=== PATIENT | female | born 1945 | race Caucasian/White ===

== ENCOUNTER 2018-09-22 04:47 | Observation (INO) | payer MEDICARE ==
[2018-09-22] MEDS ORDERED: DILTIAZEM HCL INJ 25 MG/5 ML VIAL IV ONE (05:17)
[2018-09-22] MEDS ORDERED: DILTIAZEM HCL/D5W 125 MG/125 ML RTUINJ IV PRN (05:18)
--- NOTE | 2018-09-22 05:21 | ER Document Report ---
Doctor's Note Notes: 09/22/18 05:19 I performed a quick triage evaluation the patient. Patient is a pleasant 73- year-old female who presents because she woke up having palpitations. She said she also had headache when she first woak up. Her headache is now almost completely resolved. No chest pain. No shortness of breath. No numbness or weakness into her extremities. No back pain. No abdominal pain. Patient denies any history of previous cardiac arrhythmias. No history of heart disease. She does have a history of hypertension. She said her doctor recently placed on hydrochlorothiazide. No other new medications or medication changes. Patient currently is resting comfortably with no distress. No murmur on auscultation. Lung pollack are clear. Cranial nerves are intact. I have ordered Cardizem and Cardizem drip. EKG shows a tachycardia arrhythmia which is suspect is going to be atrial fibrillation. QRS is narrow. I do not see any significant ischemic changes except for some T wave inversions in the lateral leads which could be rate related. Patient is on a monitor. Blood work has been ordered. Disposition further management will be continued by the morning ED physician. Dictation of this chart was performed using voice recognition software; therefore, there may be some unintended grammatical errors.
[2018-09-22 05:40] LABS: ABSOLUTE BASOPHILS # (AUTO) 0.1 10^3/uL (0.0-0.2); ABSOLUTE EOSINOPHILS # (AUTO) 0.2 10^3/uL (0.0-0.6); ABSOLUTE LYMPHOCYTES (AUTO) 1.5 10^3/uL (0.5-4.7); ABSOLUTE MONOCYTES (AUTO) 0.9 10^3/uL (0.1-1.4); ABSOLUTE NEUT (AUTO) 9.6 10^3/uL (1.7-8.2); BASOPHILS % (AUTO) 0.8 % (0-2); EOSINOPHILS % (AUTO) 1.4 % (0-6); HEMATOCRIT 44.8 % (36.0-47.0); HEMOGLOBIN 15.5 g/dL (12.0-15.5); LYMPHOCYTES % (AUTO) 12.5 % (13-45); MEAN CORPUSCULAR HEMOGLOBIN 28.9 pg (27.0-33.4); MEAN CORPUSCULAR HGB CONC 34.7 g/dL (32.0-36.0); MEAN CORPUSCULAR VOLUME 83 fl (80-97); MONOCYTES % (AUTO) 7.1 % (3-13); PLATELET COUNT 241 10^3/uL (150-450); RED BLOOD COUNT 5.37 10^6/uL (3.72-5.28); RED CELL DISTRIBUTION WIDTH 16.1 % (11.5-14.0); SEGMENTED NEUTROPHILS % (AUTO) 78.2 % (42-78); TOTAL CELLS COUNTED % (AUTO) 100 %; WHITE BLOOD COUNT 12.3 10^3/uL (4.0-10.5)
[2018-09-22] MEDS ORDERED: METOPROLOL TARTRATE PF/INJ 5 MG/5 ML SDV IV ONE ×3 (06:16→06:17)
--- NOTE | 2018-09-22 06:23 | RADIOLOGY REPORT (SQ) ---
EXAM DESCRIPTION: XR CHEST 1 VIEW COMPLETED DATE/TME: 09/22/2018 05:18 CLINICAL HISTORY: 73 years, Female, rapid heart beat COMPARISON: None. NUMBER OF VIEWS: 1 TECHNIQUE: AP portable chest LIMITATIONS: None. FINDINGS: Heart size is normal. Osteopenia. Lungs are clear. No pneumothorax IMPRESSION: No acute cardiopulmonary process copyright 2010 [employer]- All Rights Reserved
--- NOTE | 2018-09-22 06:24 | ER Document Report ---
ED General - General Chief Complaint: Palpitations Stated Complaint: FAST HEART RATE Time Seen by Provider: 09/22/18 05:17 Information source: Patient Notes: 73-year-old female with a history of hypertension presents emergency department complaints of palpitations that started at 230 this morning. Patient states that she monitored her pulse over a few hours and noticed it to be elevated. Patient denies any history of cardiac arrhythmias, coronary artery disease, hyperlipidemia, diabetes, smoking. Patient states that she was recently placed on hydrochlorothiazide. Patient states that initially she has an associated pressure sensation all along her chest with radiation into the left side of her neck. She states that this has resolved since coming to the emergency department. Patient was seen by Dr. Roland. Labs, imaging, medications were ordered. Cardizem and a Cardizem drip were ordered. A 15 mg bolus of Cardizem was given. Patient is currently on 15 mg/hr. Patient's heart rate continues to be in the 160s. - HPI Onset: Just prior to arrival Severity: None Pain Level: Denies Associated symptoms: None Exacerbated by: Denies Relieved by: Denies Similar symptoms previously: No Recently seen / treated by doctor: No - Related Data Allergies/Adverse Reactions: codeine Adverse Reaction (Mild, Verified 09/22/18 05:42) GI upset Past Medical History - General Information source: Patient - Social History Smoking Status: Never Smoker Family History: CAD Patient has suicidal ideation: No Patient has homicidal ideation: No - Past Medical History Cardiac Medical History: Reports: Hx Hypertension Renal/ Medical History: Denies: Hx Peritoneal Dialysis Review of Systems - Review of Systems Constitutional: No symptoms reported EENT: No symptoms reported Cardiovascular: Palpitations Respiratory: No symptoms reported Gastrointestinal: No symptoms reported Genitourinary: No symptoms reported Female Genitourinary: No symptoms reported Musculoskeletal: No symptoms reported Skin: No symptoms reported Hematologic/Lymphatic: No symptoms reported Neurological/Psychological: No symptoms reported -: Yes All other systems reviewed and negative Physical Exam - Vital signs Vitals: Pulse Ox 94 09/22/18 05:16 - Notes Notes: PHYSICAL EXAMINATION: GENERAL: Well-appearing, well-nourished and in no acute distress. HEAD: Atraumatic, normocephalic. EYES: Pupils equal round and reactive to light, extraocular movements intact, conjunctiva are normal. ENT: Nares patent, oropharynx clear without exudates. Moist mucous membranes. NECK: Normal range of motion, supple without lymphadenopathy LUNGS: Breath sounds clear to auscultation bilaterally and equal. No wheezes rales or rhonchi. HEART: Atrial fibrillation. Irregularly irregular pulse. ABDOMEN: Soft, nontender, nondistended abdomen. No guarding, no rebound. No masses appreciated. Female : deferred Musculoskeletal: Normal range of motion, no pitting or edema. No cyanosis. NEUROLOGICAL: Cranial nerves grossly intact. Normal speech, normal gait. Normal sensory, motor exams PSYCH: Normal mood, normal affect. SKIN: Warm, Dry, normal turgor, no rashes or lesions noted. Course - Re-evaluation Re-evalutation: 09/22/18 06:25 EKG: Ventricular rate 171, QRS duration 72, QTc 476, SVT. 09/22/18 07:14 Repeat EKG done at 7: 03: Ventricular rate 87, QRS duration 74, QTc 429, atrial fibrillation. 09/22/18 07:23 Patient's heart rates continue to be in the 160s when I arrived on shift. I ordered a 5 mg bolus of labetalol. This was given in the patient's heart rate is now 65. Patient still in atrial fibrillation. Patient's troponin is elevated. EKG was repeated. No ST segment elevation was seen. I spoke with the physician interventional cardiologist on-call, Dr. Chandler. He would like the patient's Cardizem drip to be cut down to 10 mg an hour. He will see the patient in consult. 09/22/18 07:40 I spoke with the hospitalist consultant teacher. He will admit the patient. The patient is agreeable with admission. - Vital Signs Vital signs: Temp Pulse Resp BP Pulse Ox 15 122/57 L 95 09/22/18 06:46 09/22/18 06:46 09/22/18 06:46 - Laboratory Result Diagrams: 09/22/18 05:23 09/22/18 06:05 Laboratory results interpreted by me: 09/22/18 09/22/18 05:23 06:05 WBC 12.3 H RBC 5.37 H RDW 16.1 H Seg Neutrophils % 78.2 H Lymphocytes % 12.5 L Absolute Neutrophils 9.6 H BUN 33 H Calcium 10.8 H Magnesium 1.5 L Discharge - Discharge Clinical Impression: Atrial fibrillation Qualifiers: Atrial fibrillation type: unspecified Qualified Code(s): I48.91 - Unspecified atrial fibrillation Condition: Stable Disposition: ADMITTED OBSERVATION Admitting Provider: Hospitalist Unit Admitted: [facility] Referrals: ZORA SÁNCHEZ PA-C [Primary Care Provider] - Follow up as needed
[2018-09-22 06:35] LABS: ALANINE AMINOTRANSFERASE 23 U/L (9-52); ALBUMIN 4.2 g/dL (3.5-5.0); ALKALINE PHOSPHATASE 73 U/L (38-126); ANION GAP 17 (5-19); ASPARTATE AMINO TRANSFERASE 36 U/L (14-36); BILIRUBIN,DIRECT 0.3 mg/dL (0.0-0.4); BILIRUBIN,TOTAL 0.5 mg/dL (0.2-1.3); BLOOD UREA NITROGEN 33 mg/dL (7-20); CALCIUM 10.8 mg/dL (8.4-10.2); CARBON DIOXIDE 24 mmol/L (22-30); CHLORIDE 99 mmol/L (98-107); GLUCOSE 106 mg/dL (75-110); POTASSIUM 3.9 mmol/L (3.6-5.0); SODIUM 140.3 mmol/L (137-145); TOTAL PROTEIN 6.7 g/dL (6.3-8.2)
--- NOTE | 2018-09-22 07:40 | EKG REPORT ---
SEVERITY:- ABNORMAL ECG - ATRIAL FIBRILLATION, V-RATE 61-124 ABNORMAL T, CONSIDER ISCHEMIA, INFERIOR LEADS : Confirmed by: Ezequiel Acevedo MD 22-Sep-2018 07:39:52
--- NOTE | 2018-09-22 07:40 | EKG REPORT ---
SEVERITY:- ABNORMAL ECG - SUPRAVENTRICULAR TACHYCARDIA LVH WITH SECONDARY REPOLARIZATION ABNORMALITY ST DEPRESSION, PROBABLY RATE RELATED : Confirmed by: Ezequiel Acevedo MD 22-Sep-2018 07:40:13
[2018-09-22] MEDS ORDERED: ASPIRIN 325 MG TABLET PO ONE (07:42)
[2018-09-22] MEDS ORDERED: MAGNESIUM HYDROXIDE SUSP 30 ML UDCUP PO PRN (08:39)
[2018-09-22] MEDS ORDERED: MAG HYDROX/AL HYDROX/SIMETH SUSP 30 ML UDCUP PO PRN (08:39)
[2018-09-22] MEDS ORDERED: ONDANSETRON 4 MG TAB.RAPDIS PO PRN (08:39)
[2018-09-22] MEDS ORDERED: TEMAZEPAM 7.5 MG CAPSULE PO PRN (08:39)
[2018-09-22] MEDS ORDERED: ONDANSETRON HCL INJ/PF 4 MG/2 ML SDV IV PRN (08:39)
[2018-09-22] MEDS ORDERED: METOPROLOL TARTRATE 50 MG TABLET PO ONE ×2 (08:54→11:00)
[2018-09-22] MEDS ORDERED: (PENDING PHARMACY ID) (Hydrochlorothiazide [Hydrochlorothiazide] 12.5 MG) PO SCH (10:00)
[2018-09-22] MEDS: DOCUSATE SODIUM 100 MG CAPSULE PO SCH ×2 (10:09→17:34)
[2018-09-22] MEDS: HYDROCHLOROTHIAZIDE 12.5 MG TABLET PO SCH (10:10)
[2018-09-22] MEDS: FAMOTIDINE 20 MG TABLET PO SCH ×2 (10:12→21:55)
[2018-09-22 10:44] LABS: CREATINE KINASE MB 12.4 ng/mL (<4.55)
[2018-09-22 10:51] LABS: TROPONIN I 0.817 ng/mL
[2018-09-22] MEDS: HEPARIN SOD (PORCINE) 5,000 UNIT/ML 1 ML SYRINGE SUBCUT SCH ×2 (14:13→21:55)
[2018-09-22] MEDS ORDERED: MAGNESIUM SULFATE/D5W 1 GM/100 ML RTUPB IV ONE (18:18)
[2018-09-22 18:28] LABS: CREATINE KINASE MB 13.9 ng/mL (<4.55)
[2018-09-22 18:37] LABS: TROPONIN I 1.15 ng/mL
--- NOTE | 2018-09-22 18:55 | PDOC H&P ---
History of Present Illness Admission Date/PCP: 09/22/18 08:24 ZORA SÁNCHEZ PA-C Patient complains of: Palpitations History of Present Illness: MADIE ROLLINS is a 73 year old female who presented to the emergency room with a sudden onset of palpitations beginning at 2:20 AM having awoken her from a sound sleep. Her palpitations were of an extremely rapid heart rate accompanied by mild dyspnea, mild chest pressure/tightness radiating to her left neck, and a feeling of being generalized weakness or heaviness. She checked her heart rate and it was 179 with a blood pressure of 120/78. She waited at home hoping that it would resolve but eventually she came to the emergency room for help. In the emergency room she was found to have supraventricular tachycardia at a rate of 180, she was started on a Cardizem drip after a Cardizem bolus was given. The Cardizem therapy did not result in a significant reduction in the patient's heart rate and therefore she was given metoprolol IV with a total of two 5 mg doses given about 5 minutes apart. The patient's heart rate rapidly responded to metoprolol and her EKG showed an atrial fibrillation with a well-controlled rate. Patient was noted to have a elevated troponin I of 0.199 and was therefore admitted to observation status for further evaluation and continued treatment of her atrial fibrillation. After discussion with the patient concerning the risks and benefits of various treatments regarding her atrial fibrillation and antiembolic therapy she does not wish to be on chronic anticoagulation therapy other than a single low dose aspirin daily. Past Medical History Cardiac Medical History: Reports: Hypertension Denies: Atrial Fibrillation, Congestive Heart Failure, Coronary Artery Disease, DVT, Myocardial Infarction, Hyperlipidema, Pulmonary Embolism Pulmonary Medical History: Denies: Asthma, Chronic Obstructive Pulmonary Disease (COPD) EENT Medical History: Reports: None Neurological Medical History: Denies: Hemorrhagic CVA, Ischemic CVA, Multiple Sclerosis, Seizures Endocrine Medical History: Denies: Diabetes Mellitus Type 1, Diabetes Mellitus Type 2, Hyperthyroidism, Hypothyroidism Renal/ Medical History: Denies: Chronic Kidney Disease, Nephrolithiasis Malignancy Medical History: Reports: None GI Medical History: Denies: Cirrhosis, Crohn's Disease, Hepatitis, Peptic Ulcer Disease, Ulcerative Colitis Musculoskeltal Medical History: Denies: Arthritis, Fibromyalgia, Gout Skin Medical History: Denies: Eczema, Psoriasis Psychiatric Medical History: Denies: Alcohol Dependency, Depression, General Anxiety Disorder, Substance Abuse, Tobacco Dependency Traumatic Medical History: Reports: None Hematology: Denies: Anemia, Bleeding Tendencies Infectious Medical History: Reports: None Past Surgical History Past Surgical History: Reports: None Social History Information Source: Patient Lives with: Alone Smoking Status: Former Smoker Frequency of Alcohol Use: None Drugs: None Hx Prescription Drug Abuse: No - Advance Directive Resuscitation Status: Full Code Surrogate healthcare decision maker:: Michela Wing: Significant other Family History Family History: CAD, Hypertension. denies: DM, Malignancy, Thyroid Disfunction Parental Family History Reviewed: Yes Children Family History Reviewed: No Sibling(s) Family History Reviewed.: Yes Medication/Allergy Home Medications: Hydrochlorothiazide [Hydrochlorothiazide] 12.5 mg PO DAILY 09/22/18 Allergies/Adverse Reactions: codeine Adverse Reaction (Mild, Verified 09/22/18 05:42) GI upset Review of Systems Constitutional: ABSENT: chills, fever(s) Eyes: ABSENT: visual disturbances, other - Ocular pain Ears: ABSENT: hearing changes, other - Ear pain Nose, Mouth, and Throat: ABSENT: mouth pain, sore throat Cardiovascular: PRESENT: as per HPI, chest pain, palpitations. ABSENT: dyspnea on exertion, edema, orthropnea Respiratory: PRESENT: as per HPI, dyspnea. ABSENT: cough, hemoptysis Gastrointestinal: ABSENT: abdominal pain, constipation, diarrhea, dysphagia, heartburn, nausea, vomiting Genitourinary: ABSENT: dysuria, hematuria Musculoskeletal: ABSENT: back pain, joint swelling Integumentary: ABSENT: pruritus, rash Neurological: ABSENT: confusion, convulsions, memory loss, tremor(s), vertigo Psychiatric: ABSENT: anxiety, depression Endocrine: ABSENT: cold intolerance, heat intolerance Hematologic/Lymphatic: ABSENT: easy bleeding, easy bruising Allergic/Immunologic: ABSENT: seasonal rhinorrhea, other - Insect bite allergy Physical Exam Vital Signs: Temp Pulse Resp BP Pulse Ox 98.8 F 63 14 126/54 H 99 09/22/18 14:48 09/22/18 14:48 09/22/18 14:48 09/22/18 14:48 09/22/18 14:48 Intake & Output 09/20/18 09/21/18 09/22/18 23:59 23:59 23:59 Intake Total 32 Balance 32 Weight 71.6 kg General appearance: PRESENT: no acute distress, cooperative, obese Head exam: PRESENT: atraumatic, normocephalic Eye exam: PRESENT: conjunctiva pink, EOMI Ear exam: PRESENT: normal external ear exam. ABSENT: bleeding, drainage Mouth exam: PRESENT: neck supple, other - Oral mucosa is moist and intact, dentition is in good repair Neck exam: ABSENT: JVD, tracheal deviation Respiratory exam: PRESENT: clear to auscultation bianca, symmetrical, unlabored Cardiovascular exam: PRESENT: irregular rhythm. ABSENT: clicks, gallop, rubs Vascular exam: PRESENT: normal capillary refill. ABSENT: pallor GI/Abdominal exam: PRESENT: normal bowel sounds, soft Rectal exam: PRESENT: deferred Extremities exam: ABSENT: joint swelling, pedal edema Musculoskeletal exam: PRESENT: full ROM, normal inspection Neurological exam: PRESENT: alert, oriented to person, oriented to place, oriented to time, oriented to situation, CN II-XII grossly intact, normal gait. ABSENT: motor sensory deficit Psychiatric exam: PRESENT: appropriate affect, normal mood Skin exam: PRESENT: dry, intact, warm. ABSENT: jaundice, rash, urticaria Results Laboratory Results: 09/22/18 09/22/18 09/22/18 09:40 09:40 17:30 Creatine Kinase 114 119 CK-MB (CK-2) 12.40 H Troponin I 0.817 Impressions: Chest X-Ray 09/22/18 05:18 IMPRESSION: No acute cardiopulmonary process copyright 2011 [employer]- All Rights Reserved Assessment & Plan - Diagnosis (1) Paroxysmal atrial fibrillation with rapid ventricular response Is this a current diagnosis for this admission?: Yes Plan: Patient will be treated with metoprolol XL 100 mg p.o. daily to start. The goal for this patient is rate control combined with control of her hypertension. Additionally she will take aspirin 81 mg p.o. daily after discussion of the risks versus benefits of anticoagulant therapy to prevent embolism in atrial fibrillation she has elected to not take any other anticoagulant. If patient experiences chest tightness or discomfort with her atrial fibrillation she will be treated with IV morphine sulfate 2-4 mg every 2 hours as needed for pain on a sliding scale. (2) HTN (hypertension) Qualifiers: Hypertension type: essential hypertension Qualified Code(s): I10 - Essential (primary) hypertension Is this a current diagnosis for this admission?: Yes Plan: Patient will be treated with metoprolol XL 100 mg p.o. daily. This may well control her hypertension without the use of hydrochlorothiazide. We will discuss whether she will go home taking hydrochlorothiazide and elected to have it withdrawn later or we will send her home with instructions to hold off on taking her hydrochlorothiazide until she can be seen by her primary care provider and follow-up to evaluate the necessity for resumption of hydrochlorothiazide. (3) Obesity (BMI 30.0-34.9) Plan: Patient is counseled about her weight and she is currently attending weight watchers and has lost 30 pounds and has only approximately 30 pounds to go to get to her goal. (4) Elevated troponin I level Is this a current diagnosis for this admission?: Yes Plan: Patient's troponin I is elevated and will be followed with serial determinations and a cardiology consultation with Dr. Chandler if the troponin continues to rise. Serial EKGs will also be obtained to evaluate for possible evidence of myocardial ischemia or injury. - Time Time Spent: 50 to 70 Minutes Medications reviewed and adjusted accordingly: Yes Anticipated discharge: Home Within: within 72 hours - Inpatient Certification Based on my medical assessment, after consideration of the patient's comorbidities, presenting symptoms, or acuity I expect that the services needed warrant INPATIENT care.: Yes I certify that my determination is in accordance with my understanding of Medicare's requirements for reasonable and necessary INPATIENT services [42 CFR 412.3e].: Yes Medical Necessity: Need Close Monitoring Due to Risk of Patient Decompensation, Need For Continuous Telemetry Monitoring, Risk of Complication if Not Cared For in Hospital
[2018-09-22] MEDS ORDERED: MORPHINE SULFATE 10 MG/ML INJ IV PRN ×3 (18:56)
[2018-09-22] MEDS ORDERED: METOPROLOL SUCCINATE 50 MG TAB.SR.24H PO SCH (22:00)
[2018-09-22] MEDS ORDERED: ASPIRIN 81 MG TABLET, ENT COATED PO SCH (22:00)
[2018-09-22 23:37] LABS: CREATINE KINASE MB 10.9 ng/mL (<4.55)
[2018-09-22 23:45] LABS: TROPONIN I 1.09 ng/mL
[2018-09-23] MEDS: HEPARIN SOD (PORCINE) 5,000 UNIT/ML 1 ML SYRINGE SUBCUT SCH (05:16)
[2018-09-23 07:18] LABS: ANION GAP 13 (5-19); BLOOD UREA NITROGEN 22 mg/dL (7-20); CALCIUM 9.9 mg/dL (8.4-10.2); CARBON DIOXIDE 30 mmol/L (22-30); CHLORIDE 100 mmol/L (98-107); CHOLESTEROL 207.52 mg/dL (0-200); CREATINE KINASE 84 U/L (30-135); GLUCOSE 83 mg/dL (75-110); POTASSIUM 3.6 mmol/L (3.6-5.0); SODIUM 142.7 mmol/L (137-145); TRIGLYCERIDES 81 mg/dL (<150)
[2018-09-23 07:29] LABS: DIRECT LDL 140 mg/dL (<100)
[2018-09-23 07:30] LABS: TROPONIN I 0.833 ng/mL
[2018-09-23 07:35] LABS: FREE T3 2.74 pg/mL (2.77-5.27); FREE T4 (FREE THYROXINE) 1.29 ng/dL (0.78-2.19)
[2018-09-23 07:48] LABS: THYROID STIMULATING HORMONE 1.79 uIU/mL (0.47-4.68)
--- NOTE | 2018-09-23 08:06 | EKG REPORT ---
SEVERITY:- ABNORMAL ECG - SINUS RHYTHM PROBABLE LVH WITH SECONDARY REPOL ABNRM BORDERLINE PROLONGED QT INTERVAL : Confirmed by: Ezequiel Acevedo MD 23-Sep-2018 08:05:23
[2018-09-23 09:07] LABS: HEMATOCRIT 40.1 % (36.0-47.0); HEMOGLOBIN 13.6 g/dL (12.0-15.5); MEAN CORPUSCULAR HEMOGLOBIN 28.4 pg (27.0-33.4); MEAN CORPUSCULAR VOLUME 84 fl (80-97); PLATELET COUNT 207 10^3/uL (150-450); RED BLOOD COUNT 4.81 10^6/uL (3.72-5.28); RED CELL DISTRIBUTION WIDTH 15.9 % (11.5-14.0); WHITE BLOOD COUNT 6.8 10^3/uL (4.0-10.5)
[2018-09-23] MEDS: FAMOTIDINE 20 MG TABLET PO SCH (09:49)
[2018-09-23] MEDS: DOCUSATE SODIUM 100 MG CAPSULE PO SCH (09:49)
[2018-09-23] MEDS: HYDROCHLOROTHIAZIDE 12.5 MG TABLET PO SCH (09:49)
[2018-09-23 12:37] VITALS: BP 117/56
--- NOTE | 2018-09-23 13:17 | PDOC DISCHARGE SUMMARY ---
General - Admit/Disc Date/PCP Admission Date/Primary Care Provider: 09/22/18 08:24 ZORA SÁNCHEZ PA-C Discharge Date: 09/23/18 - Discharge Diagnosis (1) Paroxysmal atrial fibrillation with rapid ventricular response Is this a current diagnosis for this admission?: Yes Summary: Patient will be treated with metoprolol XL 100 mg p.o. daily to start. The goal for this patient is rate control combined with control of her hypertension. Additionally she will take aspirin 81 mg p.o. daily after discussion of the risks versus benefits of anticoagulant therapy to prevent embolism in atrial fibrillation she has elected to not take any other anticoagulant. If patient experiences chest tightness or discomfort with her atrial fibrillation she will be treated with IV morphine sulfate 2-4 mg every 2 hours as needed for pain on a sliding scale. Patient did very well overnight with no chest pain or other symptoms. Her heart rate was in the 60s throughout the evening and her blood pressure remained very well controlled and stable. She did not require any pain medication and due to her excellent control and response to metoprolol XL she will be discharged home in improved and stable condition on metoprolol XL 100 mg daily and aspirin 81 mg p.o. daily. I have asked her to hold taking the previously prescribed hydrochlorothiazide 12.5 mg daily until after she has been reevaluated by her primary care provider to determine if this is any longer necessary. (2) HTN (hypertension) Is this a current diagnosis for this admission?: Yes Summary: Patient will be treated with metoprolol XL 100 mg p.o. daily. This may well control her hypertension without the use of hydrochlorothiazide. We will discuss whether she will go home taking hydrochlorothiazide and elected to have it withdrawn later or we will send her home with instructions to hold off on taking her hydrochlorothiazide until she can be seen by her primary care provider and follow-up to evaluate the necessity for resumption of hydrochlorothiazide. (3) Obesity (BMI 30.0-34.9) Is this a current diagnosis for this admission?: Yes Summary: Patient is counseled about her weight and she is currently attending weight watchers and has lost 30 pounds and has only approximately 30 pounds to go to get to her goal. (4) Elevated troponin I level Is this a current diagnosis for this admission?: Yes Summary: Patient's troponin I is elevated and will be followed with serial determinations and a cardiology consultation with Dr. Chandler if the troponin continues to rise. Serial EKGs will also be obtained to evaluate for possible evidence of myocardial ischemia or injury. Patient's cardiac enzymes would indicate a low likelihood of coronary artery occlusion injury or ischemia as the troponin I peaked approximately 24 hours after the onset of the patient's symptoms and the patient's CPK and CPK-MB were at their highest measured elevation at the time of her emergency room visit, 5 or 6 hours after her symptoms began, and have fallen since that measurement. This enzyme pattern is incongruous with an acute myocardial infarction but it is contiguous with myocardial strain secondary to left ventricular hypertrophy and prolonged supraventricular tachycardia. Therefore I do not feel that this rise in enzymes is indicative of a non-STEMI but is more likely indicative of the relatively obvious left ventricular hypertrophy and prolonged, greater than 5 hours, supraventricular tachycardia which was at a rate of 180 at the time she arrived at the emergency room. (5) Hypercholesterolemia without hypertriglyceridemia Is this a current diagnosis for this admission?: Yes Summary: Patient has moderate hypercholesterolemia with a serum cholesterol of 207 and LDL cholesterol of 140. I have suggested to her that she continue her heart healthy diet that she is following through her weight watchers program. I have additionally recommended that she reduce or eliminate most fried foods as well as most greasy or fatty foods. I suggested it would be a good idea to limit eating red meat to 2 or 3 servings per week. She will follow-up with her primary care provider who can reinforce the initial education and dietary recommendations and also follow her progress. And consider statin therapy if she does not obtain reasonable goals with dietary means alone. - Additional Information Resuscitation Status: Full Code Discharge Diet: Other (Comments) - Continue to follow your weight watchers diet , it is generally a heart healthy diet. Please try to avoid excessive fatty and oily foods and limit fried foods and red meat to 2 or 3 meals per week. Discharge Activity: Activity As Tolerated, Walk Frequently Prescriptions: Aspirin [Ecotrin 81 mg EC Tablet] 81 mg PO QHS 365 Days #365 tabec Metoprolol Succinate 100 mg PO QHS 30 Days #30 tab.er.24h Home Medications: Aspirin [Ecotrin 81 mg EC Tablet] 81 mg PO QHS 365 Days #365 tabec 09/23/18 Metoprolol Succinate 100 mg PO QHS 30 Days #30 tab.er.24h 12/02/18 History of Present Illness Patient complains of: Palpitations History of Present Illness: MADIE ROLLINS is a 73 year old female who presented to the emergency room with a sudden onset of palpitations beginning at 2:20 AM having awoken her from a sound sleep. Her palpitations were of an extremely rapid heart rate accompanied by mild dyspnea, mild chest pressure/tightness radiating to her left neck, and a feeling of being generalized weakness or heaviness. She checked her heart rate and it was 179 with a blood pressure of 120/78. She waited at home hoping that it would resolve but eventually she came to the emergency room for help. In the emergency room she was found to have supraventricular tachycardia at a rate of 180, she was started on a Cardizem drip after a Cardizem bolus was given. The Cardizem therapy did not result in a significant reduction in the patient's heart rate and therefore she was given metoprolol IV with a total of two 5 mg doses given about 5 minutes apart. The patient's heart rate rapidly responded to metoprolol and her EKG showed an atrial fibrillation with a well-controlled rate. Patient was noted to have a elevated troponin I of 0.199 and was therefore admitted to observation status for further evaluation and continued treatment of her atrial fibrillation. After discussion with the patient concerning the risks and benefits of various treatments regarding her atrial fibrillation and antiembolic therapy she does not wish to be on chronic anticoagulation therapy other than a single low dose aspirin daily. Hospital Course Hospital Course: 09/23/2018: Madie is feeling very good today. She denies further palpitations or any of her other associated symptoms (generalized weakness and heaviness, dyspnea and chest pressure or tightness with radiation). She has been eating well and taking oral fluids without difficulty. She has had no difficulty with eliminations. 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 She converted to normal sinus rhythm with a well-controlled rate (55-65). Her blood pressure has been exceptionally well controlled (121/56). Her serum troponin peaked ~24 hours after the onset of symptoms and her creatinine kinase was elevated at the time of admission and his gradually fallen over the course of her hospitalization. These findings would most likely suggest a myocardial strain with increased cardiac enzymes versus true coronary artery ischemic disease or occlusion. I have discussed this fact with her and have encouraged her to have a cardiac stress test. She is willing to have a cardiac stress test but wishes to have it performed as an outpatient with a jig and fixture builder apprentice associated with the [facility]. Additionally any other cardiology evaluation that may need to be performed, she would prefer it be performed at the [facility] or by the [place] jig and fixture builder apprentice. She has a pure hypercholesterolemia with a serum cholesterol of 207 and an LDL of 140. I have discussed her EKG results which show the conversion of her rhythm to a normal sinus rhythm with sinus arrhythmia and mild bradycardia.. LVH is still present but the repolarization (ST segment and T wave) changes are significantly decreased. Because of her excellent response to therapy and her very stable heart rate and blood pressure with out recurrence of symptoms I will consent to discharge patient as per her wishes for follow-up within 3 days with her primary care provider at the [facility]. Her primary care provider should be able to arrange for her to have a cardiac stress test, an echocardiogram and a cardiology referral to a provider associated with their clinic. Physical Exam Vital Signs: Temp Pulse Resp BP Pulse Ox 97.5 F 58 L 16 117/56 L 99 09/23/18 12:36 09/23/18 12:36 09/23/18 12:36 09/23/18 12:36 09/23/18 12:36 Intake & Output 09/21/18 09/22/18 09/23/18 23:59 23:59 23:59 Intake Total 130 591 Balance 130 591 Weight 71.6 kg 75.3 kg General appearance: PRESENT: no acute distress, cooperative, obese Head exam: PRESENT: atraumatic, normocephalic Eye exam: PRESENT: conjunctiva pink, EOMI Ear exam: PRESENT: normal external ear exam Mouth exam: PRESENT: neck supple Neck exam: ABSENT: tracheal deviation Respiratory exam: PRESENT: clear to auscultation bianca, symmetrical, unlabored Cardiovascular exam: PRESENT: bradycardia - 56 bpm, RRR - With sinus arrhythmia. ABSENT: clicks, diastolic murmur, gallop, rubs, systolic murmur, tachycardia Vascular exam: PRESENT: normal capillary refill. ABSENT: pallor GI/Abdominal exam: PRESENT: normal bowel sounds, soft Rectal exam: PRESENT: deferred Extremities exam: ABSENT: joint swelling, pedal edema Musculoskeletal exam: PRESENT: ambulatory, full ROM, normal inspection Neurological exam: PRESENT: alert, oriented to person, oriented to place, oriented to time, oriented to situation, CN II-XII grossly intact. ABSENT: motor sensory deficit Psychiatric exam: PRESENT: appropriate affect, normal mood Skin exam: PRESENT: dry, intact, warm Results Laboratory Results: 09/23/18 08:51 09/23/18 05:49 09/23/18 09/23/18 09/23/18 05:49 05:49 05:49 WBC Cancelled RBC Cancelled Hgb Cancelled Hct Cancelled MCV Cancelled MCH Cancelled MCHC Cancelled RDW Cancelled Plt Count Cancelled Sodium 142.7 Potassium 3.6 Chloride 100 Carbon Dioxide 30 Anion Gap 13 BUN 22 H Creatinine 0.41 L Est GFR ( Amer) > 60 Est GFR (Non-Af Amer) > 60 Glucose 83 Calcium 9.9 Magnesium 1.7 Triglycerides 81 Cholesterol 207.52 H LDL Cholesterol Direct 140 H VLDL Cholesterol 16.0 HDL Cholesterol 52 TSH 1.79 Free T4 1.29 Free T3 pg/mL 2.74 L 09/23/18 08:51 WBC 6.8 RBC 4.81 Hgb 13.6 Hct 40.1 MCV 84 MCH 28.4 MCHC 34.0 RDW 15.9 H Plt Count 207 Sodium Potassium Chloride Carbon Dioxide Anion Gap BUN Creatinine Est GFR ( Amer) Est GFR (Non-Af Amer) Glucose Calcium Magnesium Triglycerides Cholesterol LDL Cholesterol Direct VLDL Cholesterol HDL Cholesterol TSH Free T4 Free T3 pg/mL 09/22/18 09/22/18 09/22/18 09:40 09:40 17:30 Creatine Kinase 114 119 CK-MB (CK-2) 12.40 H Troponin I 0.817 NT-Pro-B Natriuret Pep 09/22/18 09/22/18 09/22/18 17:30 23:08 23:08 Creatine Kinase 105 CK-MB (CK-2) 13.90 H 10.90 H Troponin I 1.150 1.090 NT-Pro-B Natriuret Pep 09/23/18 09/23/18 05:49 05:49 Creatine Kinase 84 CK-MB (CK-2) 10.00 H Troponin I 0.833 NT-Pro-B Natriuret Pep 1070 H Impressions: Chest X-Ray 09/22/18 05:18 IMPRESSION: No acute cardiopulmonary process copyright 2010 [employer]- All Rights Reserved Qualifiers - * PATIENT BEING DISCHARGED WITH ANY OF THE FOLLOWING DIAGNOSIS: No Plan Discharge Plan: Discharged to home in improved and stable condition Time Spent: Greater than 30 Minutes
== END 2018-09-23 14:15 | disposition home or self-care (01) ==
LOC: ER 04:47 → UNDOADMOB 08:24 → EH 08:24 → 5 14:45
PROVIDERS: ADMIT Hospitalist; ATTEND Hospitalist
DX: I48.0 Paroxysmal atrial fibrillation (principal); I10 Essential (primary) hypertension; E66.9 Obesity, unspecified; Z68.34 Body mass index [BMI] 34.0-34.9, adult; R79.89 Other specified abnormal findings of blood chemistry; I47.1 Supraventricular tachycardia; E78.00 Pure hypercholesterolemia, unspecified; R51 Headache; Z87.891 Personal history of nicotine dependence; Z82.49 Family history of ischemic heart disease and other diseases of the circulatory system; Z79.899 Other long term (current) drug therapy
CPT/HCPCS: 93005 ×2; 96376; 99285; 96375; 96365; 96366; 36415 ×2; 84439; 82553 ×2; 82550 ×2; 83735 ×2; 84443; 85025; 85027; 80048; 80053; 84484 ×2; 84481; 83036; 80061; 83880; 71045; 93010 ×2; G0378 ×2; A9270 ×5; J3490 ×4; J3475

== ENCOUNTER 2019-10-18 19:49 | Emergency (ER) | payer MEDICARE ==
--- NOTE | 2019-10-18 20:29 | ER Document Report ---
ED Medical Screen (RME) - General Chief Complaint: Headache Stated Complaint: BLURRED VISION,HEADACHE Time Seen by Provider: 10/18/19 20:16 Primary Care Provider: ZORA SÁNCHEZ PA-C [Primary Care Provider] - Follow up as needed Mode of Arrival: Ambulatory Information source: Patient Notes: 74-year-old female presented to ED for complaint of pain to the right sikh area that is very sharp with decreased peripheral vision to the left eye. I have consulted with Dr. Alfred who recommended CBC chemistry PT PTT sed rate and CT IV contrasted of the brain to rule out arteritis. Patient states she has had ocular migraines but this is nothing like what she is got going on now. She states this is been going on for about an hour or so and she needed to get checked out to make sure she was okay. Patient is alert oriented respirations regular nonlabored speaking in full sentences no facial droop no palmar drift no other neurological symptoms. I have greeted and performed a rapid initial assessment of this patient. A comprehensive ED assessment and evaluation of the patient, analysis of test results and completion of medical decision making process will be conducted by an additional ED providers. TRAVEL OUTSIDE OF THE [place] IN LAST 30 DAYS: No - Related Data Allergies/Adverse Reactions: codeine Adverse Reaction (Mild, Verified 09/22/18 05:42) GI upset Past Medical History - Past Medical History Cardiac Medical History: Reports: Hx Hypertension Denies: Hx Atrial Fibrillation, Hx Congestive Heart Failure, Hx Coronary Artery Disease, Hx DVT, Hx Heart Attack, Hx Hypercholesterolemia, Hx Pulmonary Embolism Pulmonary Medical History: Denies: Hx Asthma, Hx COPD Neurological Medical History: Denies: Hx Seizures Endocrine Medical History: Denies: Hx Diabetes Mellitus Type 1, Hx Diabetes Mellitus Type 2, Hx Hyperthyroidism, Hx Hypothyroidism Renal/ Medical History: Denies: Hx Peritoneal Dialysis GI Medical History: Denies: Hx Cirrhosis, Hx Crohn's Disease, Hx Hepatitis, Hx Ulcerative Colitis Musculoskeltal Medical History: Denies Hx Arthritis, Denies Hx Fibromyalgia, Denies Hx Gout Skin Medical History: Denies Hx Eczema, Denies Hx Psoriasis Psychiatric Medical History: Denies: Hx Depression Infectious Medical History: Denies: Hx Hepatitis Physical Exam - Vital signs Vitals: Temp Pulse Resp BP Pulse Ox 97.4 F 59 L 16 154/54 H 94 10/18/19 20:00 10/18/19 20:00 10/18/19 20:00 10/18/19 20:00 10/18/19 20:00 Course - Vital Signs Vital signs: Temp Pulse Resp BP Pulse Ox 97.4 F 59 L 16 154/54 H 94 10/18/19 20:00 10/18/19 20:00 10/18/19 20:00 10/18/19 20:00 10/18/19 20:00 Doctor's Discharge - Discharge Referrals: ZORA SÁNCHEZ PA-C [Primary Care Provider] - Follow up as needed
[2019-10-18 21:12] LABS: ABSOLUTE BASOPHILS # (AUTO) 0.1 10^3/uL (0.0-0.2); ABSOLUTE EOSINOPHILS # (AUTO) 0.3 10^3/uL (0.0-0.6); ABSOLUTE LYMPHOCYTES (AUTO) 1.5 10^3/uL (0.5-4.7); ABSOLUTE MONOCYTES (AUTO) 0.7 10^3/uL (0.1-1.4); ABSOLUTE NEUT (AUTO) 4.7 10^3/uL (1.7-8.2); BASOPHILS % (AUTO) 0.7 % (0-2); EOSINOPHILS % (AUTO) 3.6 % (0-6); HEMATOCRIT 39.7 % (36.0-47.0); HEMOGLOBIN 13.4 g/dL (12.0-15.5); LYMPHOCYTES % (AUTO) 20.9 % (13-45); MEAN CORPUSCULAR HEMOGLOBIN 30.3 pg (27.0-33.4); MEAN CORPUSCULAR HGB CONC 33.8 g/dL (32.0-36.0); MEAN CORPUSCULAR VOLUME 90 fl (80-97); MONOCYTES % (AUTO) 9.3 % (3-13); PLATELET COUNT 205 10^3/uL (150-450); RED BLOOD COUNT 4.43 10^6/uL (3.72-5.28); RED CELL DISTRIBUTION WIDTH 14.2 % (11.5-14.0); SEGMENTED NEUTROPHILS % (AUTO) 65.5 % (42-78); TOTAL CELLS COUNTED % (AUTO) 100 %; WHITE BLOOD COUNT 7.2 10^3/uL (4.0-10.5)
[2019-10-18 21:21] LABS: APPEARANCE,URINE CLEAR; BILIRUBIN,URINE NEGATIVE (NEGATIVE); COLOR,URINE STRAW; GLUCOSE, URINE NEGATIVE (NEGATIVE); KETONES,URINE NEGATIVE (NEGATIVE); PROTEIN,URINE NEGATIVE (NEGATIVE); URINE SPECIFIC GRAVITY 1.005; UROBILINOGEN,URINE NEGATIVE mg/dL (<2.0)
[2019-10-18 21:28] LABS: ALBUMIN 3.9 g/dL (3.5-5.0); ALKALINE PHOSPHATASE 77 U/L (38-126); ANION GAP 6 (5-19); ASPARTATE AMINO TRANSFERASE 60 U/L (14-36); BILIRUBIN,DIRECT 0.2 mg/dL (0.0-0.4); BILIRUBIN,TOTAL 0.3 mg/dL (0.2-1.3); BLOOD UREA NITROGEN 18 mg/dL (7-20); CALCIUM 9.8 mg/dL (8.4-10.2); CARBON DIOXIDE 31 mmol/L (22-30); CHLORIDE 104 mmol/L (98-107); GLUCOSE 81 mg/dL (75-110); POTASSIUM 4.3 mmol/L (3.6-5.0); TOTAL PROTEIN 6.6 g/dL (6.3-8.2)
[2019-10-18 21:29] LABS: INTERNATIONAL RATION (INR) 0.87; PARTIAL THROMBOPLASTIN TIME 26.1 SEC (23.5-35.8); PROTHROMBIN TIME 11.8 SEC (11.4-15.4)
[2019-10-18 21:47] LABS: ERYTHROCYTE SEDIMENTATION RATE 14 mm/hr (0-30)
--- NOTE | 2019-10-18 22:31 | ER Document Report ---
ED Headache - General Chief Complaint: Headache Stated Complaint: BLURRED VISION,HEADACHE Time Seen by Provider: 10/18/19 20:16 Primary Care Provider: ZORA SÁNCHEZ PA-C [Primary Care Provider] - Follow up as needed Mode of Arrival: Ambulatory TRAVEL OUTSIDE OF THE [place] IN LAST 30 DAYS: No - HPI Patient complains to provider of: Headache, Other - Patient reports that around 530 she noted while eating her dinner that she had a shot sided temporal hea dache that was throbbing in nature lasted about 15 minutes and resolved to a negligible pain level on its own without medications. She states that she began to eat again and noted that she could not see the entire plate in front of her with left-sided peripheral vision loss. She denied any blacked out vision or white out vision is just that she did not and could not see past midline to the periphery out of the left eye. Denies any eye pain. Denies any nausea vomiting. Denies any lightheadedness or dizziness. Patient has a history of atrial fibrillation hypertension obesity increased cholesterol. Patient is on aspirin daily and metoprolol for her A. fib. Patient reports she has never been on any anticoagulant for her atrial fibrillation. Onset: Just prior to arrival Quality of pain: Sharp - Related Data Allergies/Adverse Reactions: codeine Adverse Reaction (Mild, Verified 09/22/18 05:42) GI upset Home Medications: Metoprolol Past Medical History - General Information source: Patient - Social History Smoking Status: Former Smoker Frequency of alcohol use: None Drug Abuse: None Family History: CAD, Hypertension. denies: DM, Malignancy, Thyroid Disfunction Patient has suicidal ideation: No Patient has homicidal ideation: No - Past Medical History Cardiac Medical History: Reports: Hx Hypertension Denies: Hx Atrial Fibrillation, Hx Congestive Heart Failure, Hx Coronary Artery Disease, Hx DVT, Hx Heart Attack, Hx Hypercholesterolemia, Hx Pulmonary Embolism Pulmonary Medical History: Denies: Hx Asthma, Hx COPD Neurological Medical History: Denies: Hx Seizures Endocrine Medical History: Denies: Hx Diabetes Mellitus Type 1, Hx Diabetes Mellitus Type 2, Hx Hyperthyroidism, Hx Hypothyroidism Renal/ Medical History: Denies: Hx Peritoneal Dialysis GI Medical History: Denies: Hx Cirrhosis, Hx Crohn's Disease, Hx Hepatitis, Hx Ulcerative Colitis Musculoskeletal Medical History: Denies Hx Arthritis, Denies Hx Fibromyalgia, Denies Hx Gout Skin Medical History: Denies Hx Eczema, Denies Hx Psoriasis Psychiatric Medical History: Denies: Hx Depression Infectious Medical History: Denies: Hx Hepatitis Review of Systems - Review of Systems Constitutional: No symptoms reported EENT: See HPI Cardiovascular: See HPI, Other - Noted atrial fibrillation with rapid ventricular response last evening. Patient reports she took extra metoprolol a nd within an hour and a half was able to control her ventricular rate back to normal. Physical Exam - Vital signs Vitals: Temp Pulse Resp BP Pulse Ox 97.4 F 59 L 16 154/54 H 94 10/18/19 20:00 10/18/19 20:00 10/18/19 20:00 10/18/19 20:00 10/18/19 20:00 Interpretation: Normal - General General appearance: Appears well, Alert - HEENT Head: Normocephalic, Atraumatic Eyes: Normal Pupils: PERRL Visual acuity- Right eye: 20/30 Visual acuity- Left eye: 20/30 Visual acuity- Both eyes: 20/50 Corrective lenses worn: No Fundascopic: Normal Visual pollack normal: No - Left eye peripheral vision loss from midline to the periphery both quadrant - Respiratory Respiratory status: No respiratory distress Chest status: Nontender Breath sounds: Normal Chest palpation: Normal - Cardiovascular Rhythm: Regular Heart sounds: Normal auscultation Murmur: No - Abdominal Inspection: Normal Distension: No distension Bowel sounds: Normal Tenderness: Nontender Organomegaly: No organomegaly - Back Back: Normal, Nontender - Extremities General upper extremity: Normal inspection, Nontender, Normal color, Normal ROM, Normal temperature General lower extremity: Normal inspection, Nontender, Normal color, Normal ROM, Normal temperature, Normal weight bearing. No: Cecile's sign - Neurological Neuro grossly intact: Yes Cognition: Normal Orientation: AAOx4 Parkin Coma Scale Eye Opening: Spontaneous Ana Coma Scale Verbal: Oriented Ana Coma Scale Motor: Obeys Commands Parkin Coma Scale Total: 15 Speech: Normal Motor strength normal: LUE, RUE, LLE, RLE Additional motor exam normals: Equal web administrator Sensory: Normal Notes: You were seen today for hives. This can be either allergic, autoimmune, or environmental in origin. You can continue to take cetirizine 10mg up to 3 times daily as needed for itching. Apply the topical steroid cream that has been pr escribed as needed for severe inching. IF YOU DEVELOP DIFFICULTY BREATHING, SPREADING OF HIVES, VOMITING, LIGHTHEADEDNESS, IMMEDIATELY AND CALL 911. Please follow-up with your primary care physician in the next 1-2 days. - Psychological Associated symptoms: Normal affect, Normal mood - Skin Skin Temperature: Warm Skin Moisture: Dry Skin Color: Normal Course - Vital Signs Vital signs: Temp Pulse Resp BP Pulse Ox 97.4 F 59 L 12 199/56 H 99 10/18/19 20:00 10/18/19 20:00 10/19/19 00:31 10/19/19 00:31 10/19/19 00:31 - Laboratory Result Diagrams: 10/18/19 20:55 10/18/19 20:55 Laboratory results interpreted by me: 10/18/19 10/18/19 10/18/19 20:55 20:55 20:55 RDW 14.2 H Carbon Dioxide 31 H AST 60 H Urine Blood SMALL H Leukocyte Esterase Rfl MODERATE H - EKG Interpretation by Me Additional EKG results interpreted by me: 10/19/19 01:16 12-lead EKG done at 2344 shows normal sinus rhythm rate of 61 with left ventricular hypertrophy and secondary repolarization abnormality. No other acute process. Critical Care Note - Critical Care Note Total time excluding time spent on procedures (mins): 49 Discharge - Discharge Clinical Impression: Headache, Left homonymous hemianopsia, Atrial fibrillation, Obesity (BMI 30.0- 34.9), HTN (hypertension) Condition: Serious Disposition: [facility] Referrals: ZORA SÁNCHEZ PA-C [Primary Care Provider] - Follow up as needed
--- NOTE | 2019-10-18 22:57 | RADIOLOGY REPORT (SQ) ---
EXAM DESCRIPTION: CT HEAD WITHOUT AND WITH INTRAVENOUS CONTRAST CLINICAL HISTORY: Neurologic changes. Headache. Vision issues. COMPARISON: None TECHNIQUE: CT of the head was performed without and with intravenous contrast .100 mL Omnipaque 350. This exam was performed according to our departmental dose-optimization program, which includes automated exposure control, adjustment of the mA and/or KV according to the patient's size and/or use of iterative reconstruction technique. FINDINGS: Mild ventriculomegaly. Cortical sulci are relatively effaced for age. No suspicious focal intra-axial or extra-axial abnormality. At least mild atherosclerotic disease of distal internal carotid, vertebral and the basilar artery. Hyperostosis frontalis bilaterally greater on the left. No acute calvarium abnormality. Empty sella. Paranasal sinuses, mastoid air cells are unremarkable. IMPRESSION: 1. No obvious acute focal abnormality or abnormal enhancement. 2. The ventricles are mildly enlarged and cortical sulci are relatively effaced for age. Not clear if this represents mild central atrophy or very mild hydrocephalus. 3. Atherosclerotic disease. 4. Empty sella. Nonspecific finding usually incidental and normal variation. Sometimes associated with increased intracranial pressure. 5. Consider MRI if clinically indicated.
[2019-10-18] MEDS ORDERED: NORMAL SALINE 1000 ML 1,000 ML IV PRN (23:16)
--- NOTE | 2019-10-18 23:57 | RADIOLOGY REPORT (SQ) ---
EXAM DESCRIPTION: XR CHEST 1 VIEW COMPLETED DATE/TME: 10/18/2019 23:20 CLINICAL HISTORY: 74 years, Female, htn/ vision loss COMPARISON: 09/22/2018 chest NUMBER OF VIEWS: 1 TECHNIQUE: Portable chest LIMITATIONS: None. FINDINGS: Heart size stable. Mild atheromatous change thoracic aorta. Osteopenia. Lungs clear. No pneumothorax IMPRESSION: No acute cardiopulmonary process copyright 2010 [employer]- All Rights Reserved
--- NOTE | 2019-10-19 00:39 | ER Document Report ---
ED Neuro Symptoms/Deficit - General Chief Complaint: Headache Stated Complaint: BLURRED VISION,HEADACHE Time Seen by Provider: 10/18/19 20:16 Primary Care Provider: ZORA SÁNCHEZ PA-C [Primary Care Provider] - Follow up as needed Mode of Arrival: Ambulatory TRAVEL OUTSIDE OF THE [place] IN LAST 30 DAYS: No - Related Data Allergies/Adverse Reactions: codeine Adverse Reaction (Mild, Verified 09/22/18 05:42) GI upset Home Medications: Metoprolol Past Medical History - General Information source: Patient - Social History Smoking Status: Former Smoker Frequency of alcohol use: None Drug Abuse: None Family History: CAD, Hypertension. denies: DM, Malignancy, Thyroid Disfunction Patient has suicidal ideation: No Patient has homicidal ideation: No - Past Medical History Cardiac Medical History: Reports: Hx Hypertension Denies: Hx Atrial Fibrillation, Hx Congestive Heart Failure, Hx Coronary Artery Disease, Hx DVT, Hx Heart Attack, Hx Hypercholesterolemia, Hx Pulmonary Embolism Pulmonary Medical History: Denies: Hx Asthma, Hx COPD Neurological Medical History: Denies: Hx Seizures Endocrine Medical History: Denies: Hx Diabetes Mellitus Type 1, Hx Diabetes Mellitus Type 2, Hx Hyperthyroidism, Hx Hypothyroidism Renal/ Medical History: Denies: Hx Peritoneal Dialysis GI Medical History: Denies: Hx Cirrhosis, Hx Crohn's Disease, Hx Hepatitis, Hx Ulcerative Colitis Musculoskeletal Medical History: Denies Hx Arthritis, Denies Hx Fibromyalgia, Denies Hx Gout Skin Medical History: Denies Hx Eczema, Denies Hx Psoriasis Psychiatric Medical History: Denies: Hx Depression Infectious Medical History: Denies: Hx Hepatitis Physical Exam - Vital signs Vitals: Temp Pulse Resp BP Pulse Ox 97.4 F 59 L 16 154/54 H 94 10/18/19 20:00 10/18/19 20:00 10/18/19 20:00 10/18/19 20:00 10/18/19 20:00 - HEENT Visual acuity- Right eye: 20/30 Visual acuity- Left eye: 20/30 Visual acuity- Both eyes: 20/50 Corrective lenses worn: No Course - Vital Signs Vital signs: Temp Pulse Resp BP Pulse Ox 97.4 F 59 L 12 198/56 H 97 10/18/19 20:00 10/18/19 20:00 10/19/19 00:02 10/19/19 00:02 10/18/19 23:01 - Laboratory Result Diagrams: 10/18/19 20:55 10/18/19 20:55 Laboratory results interpreted by me: 10/18/19 10/18/19 10/18/19 20:55 20:55 20:55 RDW 14.2 H Carbon Dioxide 31 H AST 60 H Urine Blood SMALL H Leukocyte Esterase Rfl MODERATE H ED Alteplase Inc/Exc Criteria - Inclusion Criteria: 1: Patient presented to ED within 3 hours of acute ischemic stroke symptom ons et? -: No - Patient symptoms began around 530 and initial nursing note was at 2016. 2: Did baseline CT exclude intracranial hemorrhage and/or other risk factors? 3: Is the age of the patient 18 years of age or greater? -: Yes : If any of the above questions are answered "NO" then stop, patient is not a candidate for Alteplase, : If all of the above questions are answered "YES" then continue with Exclusion Criteria. - Exclusion Criteria: 1: Is there evidence of intracranial hemorrhage on baseline CT? 2: Is there suspicion of subarachnoid hemorrhage (even if CT negative)? 3: Is there a history of serious head trauma, recent previous stroke or MN within 3 months? 4: Does the patient have a clinical presentation consistent with MN or post-MN pericarditis? 5: Is there history of intracranial hemorrhage? 6: On repeated measurement is Systolic BP greater than 185mmHg or Diastolic BP greater that 110 mmHg and is aggressive treatment needed to reduce blood pressure to these limits (e.g. constant infusion of an anti-hypertensive)? 7: Did the patient awake with stroke symptoms? 8: Has the patient had a lumbar puncture or an arterial puncture at a non- compressile site within 7 days? 9: With in the last 14 days did the patient have surgery or major trauma? 10: Is the patient or less than 2 weeks? 11: Was there any active bleeding or acute trauma? 12: Does the patient have intracranial neoplasm, arteriovenous malformation or aneurysm? 13: Does the patient have abnormal glucose (less than 50 or greater than 400mg/dl)? Record glucose in Comment. 14: Patient has rapidly improving symptoms at the time Alteplase is to be Administered. 15: Does the patient have any risks for bleeding, including but not limited to: a.: Current use of Coumadin with PT greater than 15 seconds or INR greater than 1.7. b.: Current use of Pradaxa (Dabigatran). c.: Heparin administereed within the past 48 hours and PTT elevated. d.: Platelet count less than 100,000/mm. e.: Major surgery or serious trauma within 14 days. f.: Gastrointestinal or gynecological urinary bleeding within 14 days. g.: Myocardial Infarction (MN) within 3 months. : If the answer to any of the above questions is "YES" then stop, the patient is not a candidate for Alteplase. : If the answer to all of the above questions is "NO" then the patient may be eligible for the Administration of Alteplase. : If the patient is noted to have seizure activity at onset of Stroke symptoms; Consult Neurologist for further evaluation. - The patient is: -: Included and is eligible to receive Alteplase. *Initiate bed placement at higher level of care* Reviewed risks & benefits of thrombolytic therapy: I have reviewed the risks and benefits of thrombolytic therapy with the patient and/or his/her family. -: Excluded and not eligible to receive Alteplase for the above exclusions. -: Excluded and not eligible to receive Alteplase for other reasons (specify in comments): - Diagnosis of TIA: -: Patient presented with transient symptoms that are now resolved and no other neurologic findings are currently present. List symptoms in comments. -: Patient is NOT a candidate for tPA. -: ____(put name in comment) has been consulted for admission and continued evaluation of risk factor assessment. ED NIH Stroke Scale - NIH Stroke Scale *: 1. NIH scale should be completed with appropriate accompanying assessment tools. *: 2. The NIH should reflect what the patient is capable of doing and should not be coached by the clinician. 1a. Level of Consciousness: 0=Alert;keenly responsive -: 1=Drowsy -: 2=Obtunded -: 3=Coma/unresponsive or reflex to noxious stimuli. 1a. Responses: 0 1b. Orientation Questions: a. What month is it? -: b. How old are you? -: 0=Answers both questions correctly. -: 1=Answers one question correctly or patient is intubated or has orotracheal trauma. -: 2=Answers neither question correctly. 1b. Responses: 0 1c. Response to commands: a. Open and close eyes? -: b. [employer] and release hand? -: Credit is given despite weakness. Demonstration of task is permitted. Substitute command if hands cannot be used. -: 0=Performs both tasks correctly -: 1=Performs one task correctly -: 2=Performs neither task correctly 1c. Responses: 0 2. Gaze: Establish eye contact and instruct patient to "Follow my finger" -: 0=Normal -: 1=Partial gaze palsy. Gaze is abnormal in one or both eyes, but where forced deviation or total gaze paresis is not present. -: 2=Forced deviation or total gaze paresis. 2. Responses: 0 3. Visual Suggs: Sees fingers in all four quadrants. -: 0=No visual loss. -: 1=Partial hemianopsia. -: 2=Complete hemianopsia. -: 3=Bilateral hemianopsia (including Cortical blindness) 3. Responses: 1 4. Facial Movement: Instruct patient to: -: a. Show me your teeth -: b. Raise your eyebrows -: c. Close your eyes -: d. Smile -: 0=Normal symmetrical movement -: 1=Minor paralysis (flattened nasolabial fold, asymmetry on smiling). -: 2=Partial paralysis (total or near total paralysis of lower face). -: 3=Complete paralysis of upper and lower face 4. Responses: 0 5. Motor functions (left arm): Alternate sides and extend each arm with palms down (90 degrees if sitting or 45 degrees for supine). -: 0=No drift;limb holds for full 10 seconds. -: 1=Drift; limb holds but drifts down before full 10 seconds, but does not hit bed. -: 2=Some effort against gravity; limb cannot get to or maintain position. -: 3=No effort against gravity; limb falls. -: 4=No movement. -: UN=Amputation, joint fusion, explain in comments. 5. Responses (left arm): 0 5. Motor Functions (right arm): Alternate sides and extend each arm with palms down (90 degrees if sitting or 45 degrees for supine). -: 0=No drift;limb holds for full 10 seconds. -: 1=Drift; limb holds but drifts down before full 10 seconds, but does not hit bed. -: 2=Some effort against gravity; limb cannot get to or maintain position. -: 3=No effort against gravity; limb falls. -: 4=No movement. -: UN=Amputation, joint fusion, explain in comments. 5. Responses (right arm): 0 6. Motor Functions (left leg): With patient lying supine, alternate sides and extend each leg (30 degrees always while supine). -: 0=No drift, leg holds position for full 5 seconds -: 1=Drift; leg falls before full 5 seconds but does not hit bed. -: 2=Some effort against gravity, leg falls to bed but some effort against gravity. -: 3=No effort against gravity, leg falls to bed immediately. -: 4=No movement. -: UN=Amputation, joint fusion; explain in comments. 6. Responses (left leg): 0 6. Motor Functions (right leg): With patient lying supine, alternate sides and extend each leg (30 degrees always while supine). -: 0=No drift, leg holds position for full 5 seconds -: 1=Drift; leg falls before full 5 seconds but does not hit bed. -: 2=Some effort against gravity, leg falls to bed but some effort against gravity. -: 3=No effort against gravity, leg falls to bed immediately. -: 4=No movement. -: UN=Amputation, joint fusion; explain in comments. 6. Responses (right leg): 0 7. Limb Ataxia: With eyes open instruct patient to: -: a. "Touch your finger to your nose". -: b. "Touch your heel to your mosquera" -: 0=Absent -: 1=Present in one limb. -: 2=Present in two limbs. -: UN=Amputation or joint fusion; explain in comments. 7. Responses: 0 8. Sensory: Test sensation using pinprick or noxious stimuli. Test as many body parts as possible. -: 0=Normal;no sensory loss -: 1=Mile to moderate sensory loss (patient feels pin prick but is less sharp on affected side). -: 2=Severe or total sensory loss. 8. Responses: 0 9. Best Language: Instruct patient to: -: a. "Describe what you see in this picture." -: b. "Name the items in this picture." -: c. "Read these sentences." -: 0=No aphasia, normal -: 1=Mild to moderate aphasia. -: 2=Severe aphasia -: 3=Mute, global aphasia, no usable speech or auditory comprehension. 10. Articulation, Dysarthia: Instruct patient to: -: "Read these words" or "Repeat these words" -: 0=Normal -: 1=Mild to moderate; patient may slur some words but can be understood without difficulty. -: 2=Severe; patients speech so slurred as to be unintelligible in the absence of dysphasia. -: UN=Intubated or other physical barrier, explain in comments. 10. Responses: 0 11. Extinction or inattention: 0=No abnormality -: 1= Visual, tactile, auditory, spatial, or personal inattention or extinction to bilateral simulation in one or the sensory modalities. -: 2=Profound brittaney-inattention or brittaney-inattention to more than one modality; does not recognize own hand. 11. Responses: 1 Total Score: 2 Discharge - Discharge Clinical Impression: Headache, Left homonymous hemianopsia, Atrial fibrillation, Obesity (BMI 30.0- 34.9), HTN (hypertension) Condition: Serious Disposition: [facility] Referrals: ZORA SÁNCHEZ PA-C [Primary Care Provider] - Follow up as needed
[2019-10-19] MEDS: TETRACAINE HCL 0.5% OPH SOLN 4 ML OU ONE ×2 (00:58→01:24)
[2019-10-19 01:19] VITALS: BP 186/80
--- NOTE | 2019-10-19 13:44 | EKG REPORT ---
SEVERITY:- ABNORMAL ECG - SINUS RHYTHM LVH WITH SECONDARY REPOLARIZATION ABNORMALITY : Confirmed by: Magdalena Chandler MD 19-Oct-2019 13:43:59
== END 2019-10-19 01:30 | disposition short-term general hospital (02) ==
LOC: ER 19:49
DX: H53.462 Homonymous bilateral field defects, left side (principal); R51 Headache; I11.9 Hypertensive heart disease without heart failure; I48.91 Unspecified atrial fibrillation; E66.9 Obesity, unspecified; L50.9 Urticaria, unspecified; Z79.899 Other long term (current) drug therapy; Z87.891 Personal history of nicotine dependence; Z79.82 Long term (current) use of aspirin
CPT/HCPCS: 93005; 99285; 96360; 36415; 87086; 84443; 85025; 85652; 85610; 85730; 80053; 81001; 71045; 70460; 93010; J7030; J3490

== ENCOUNTER 2019-10-31 07:49 | Inpatient (IN) | payer MEDICARE ==
[2019-10-31 09:13] LABS: ABSOLUTE BASOPHILS # (AUTO) 0.1 10^3/uL (0.0-0.2); ABSOLUTE EOSINOPHILS # (AUTO) 0.1 10^3/uL (0.0-0.6); ABSOLUTE LYMPHOCYTES (AUTO) 1.5 10^3/uL (0.5-4.7); ABSOLUTE MONOCYTES (AUTO) 0.5 10^3/uL (0.1-1.4); ABSOLUTE NEUT (AUTO) 10.5 10^3/uL (1.7-8.2); BASOPHILS % (AUTO) 0.6 % (0-2); EOSINOPHILS % (AUTO) 0.5 % (0-6); HEMOGLOBIN 8.4 g/dL (12.0-15.5); LYMPHOCYTES % (AUTO) 12.1 % (13-45); MEAN CORPUSCULAR HEMOGLOBIN 30.2 pg (27.0-33.4); MEAN CORPUSCULAR HGB CONC 33.4 g/dL (32.0-36.0); MEAN CORPUSCULAR VOLUME 90 fl (80-97); MONOCYTES % (AUTO) 4.2 % (3-13); PLATELET COUNT 256 10^3/uL (150-450); RED BLOOD COUNT 2.77 10^6/uL (3.72-5.28); RED CELL DISTRIBUTION WIDTH 14.2 % (11.5-14.0); SEGMENTED NEUTROPHILS % (AUTO) 82.6 % (42-78); TOTAL CELLS COUNTED % (AUTO) 100 %; WHITE BLOOD COUNT 12.7 10^3/uL (4.0-10.5)
[2019-10-31 09:26] LABS: ALBUMIN 3.2 g/dL (3.5-5.0); ALKALINE PHOSPHATASE 52 U/L (38-126); ANION GAP 9 (5-19); ASPARTATE AMINO TRANSFERASE 26 U/L (14-36); BILIRUBIN,DIRECT 0.2 mg/dL (0.0-0.4); BILIRUBIN,TOTAL 0.4 mg/dL (0.2-1.3); BLOOD UREA NITROGEN 49 mg/dL (7-20); CALCIUM 8.9 mg/dL (8.4-10.2); CARBON DIOXIDE 22 mmol/L (22-30); CHLORIDE 108 mmol/L (98-107); CREATINE KINASE 20 U/L (30-135); GLUCOSE 104 mg/dL (75-110); POTASSIUM 4.2 mmol/L (3.6-5.0); TOTAL PROTEIN 5.6 g/dL (6.3-8.2)
--- NOTE | 2019-10-31 09:29 | EKG REPORT ---
SEVERITY:- ABNORMAL ECG - SINUS RHYTHM MULTIPLE ATRIAL PREMATURE COMPLEXES LVH WITH SECONDARY REPOLARIZATION ABNORMALITY : Confirmed by: Cristian Cid 31-Oct-2019 09:28:27
[2019-10-31 10:00] LABS: CREATINE KINASE MB 0.85 ng/mL (<4.55)
[2019-10-31 10:05] LABS: TROPONIN I 0.043 ng/mL
--- NOTE | 2019-10-31 10:26 | ER Document Report ---
ED General - General Chief Complaint: Weakness Stated Complaint: weak TRAVEL OUTSIDE OF THE [place] 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 last dose of her meds were last night (specifically last metoprolol and/or rivoxoparin). she denies to me taking NSAIDS of which i name common examples to her/family. regarding specifially RUE weakness she'd initially reported to family/ems, says she'd first noted some diziness and weakness this am in b/l legs walking to bathroom, and it was then when on toilet first noticed RUE weakness when wiping s/p urination, but soon after then noted really both arms symmetrially weak as were legs. she denies falls in the last 4 hours or last few weeks. family also say they didn't see any facial droop or clumsiness (any focal deficits) or falls. actually went to her PCP yesterday for MATTHEWS over last week, but "everything ok there" had neg cxr and flu test. EMS reported (-) cva screens but manual BP 82/50. they placed 18g IV x1 and so far has received ~100cc NS upon ED arrival. patient/family able to note her usual BPs are lower end of normal but not as low as today per EMS or upon her arrival here of 90s/40s. denies f/c/s. denies (near) passing out, chest pain, ESCOBEDO or neck pain or new vision changes. - Related Data Allergies/Adverse Reactions: codeine Adverse Reaction (Mild, Verified 10/31/19 08:10) GI upset Home Medications: Yanick/Gregor Past Medical History - Social History Smoking Status: Former Smoker Chew tobacco use (# tins/day): No Frequency of alcohol use: None Drug Abuse: None Family History: CAD, Hypertension. denies: DM, Malignancy, Thyroid Disfunction Patient has suicidal ideation: No Patient has homicidal ideation: No - Past Medical History Cardiac Medical History: Reports: Hx Atrial Fibrillation, Hx Hypertension Denies: Hx Congestive Heart Failure, Hx Coronary Artery Disease, Hx DVT, Hx Heart Attack, Hx Hypercholesterolemia, Hx Pulmonary Embolism Pulmonary Medical History: Denies: Hx Asthma, Hx COPD Neurological Medical History: Reports: Hx Migraine - occular. Denies: Hx Seizures Endocrine Medical History: Denies: Hx Diabetes Mellitus Type 1, Hx Diabetes Mellitus Type 2, Hx Hyperthyroidism, Hx Hypothyroidism Renal/ Medical History: Denies: Hx Peritoneal Dialysis GI Medical History: Denies: Hx Cirrhosis, Hx Crohn's Disease, Hx Hepatitis, Hx Ulcerative Colitis Musculoskeletal Medical History: Denies Hx Arthritis, Denies Hx Fibromyalgia, Denies Hx Gout Skin Medical History: Denies Hx Eczema, Denies Hx Psoriasis Psychiatric Medical History: Denies: Hx Depression Infectious Medical History: Denies: Hx Hepatitis Past Surgical History: Reports: Hx Appendectomy, Hx Cholecystectomy, Hx Hysterectomy - partial Review of Systems - Review of Systems Constitutional: See HPI, Weakness. denies: Diaphoresis, Fever, Weight gain, Weight loss EENT: No symptoms reported Cardiovascular: See HPI, Dyspnea, Lightheaded. denies: Chest pain, Palpitations, Heart racing, Orthopnea, Syncope, Edema, Paroxysmal Nocturnal Dysp Respiratory: See HPI, Hurts to breathe. denies: Cough, Hemoptysis, Sputum, Stridor, Wheezing Gastrointestinal: See HPI, Poor appetite, Poor fluid intake. denies: Abdomen distended, Abdominal pain, Diarrhea, Nausea, Vomiting, Constipation, Blood streaked bowels, Black stools, Rectal bleeding Genitourinary: No symptoms reported Female Genitourinary: No symptoms reported Musculoskeletal: No symptoms reported Skin: No symptoms reported Hematologic/Lymphatic: No symptoms reported Neurological/Psychological: See HPI, Weakness. denies: Confusion, Hallucinations, Sensory change, Gait changes - feels she is at risk of falling today 2/2 gen weakness per above l, Paralysis, Seizure, Lost consciousness, Headaches, Speech impairment, Numbness, Tingling, Tremor Physical Exam - Vital signs Vitals: Pulse Resp BP Pulse Ox 65 16 82/52 L 99 10/31/19 07:50 10/31/19 07:50 10/31/19 07:50 10/31/19 07:50 Interpretation: Normal - General General appearance: Alert In distress: None - no distress at rest; able to speak full sentences and give portions of history appropriately, assisted by family input. 99% RA at rest. - HEENT Head: Normocephalic, Atraumatic Eyes: Pale conjunctiva. No: Periorbital ecchymosis, Scleral icterus Conjunctiva: No: Injected, Purulent discharge Extraocular movements intact: Yes Pupils: PERRL Nerve palsy: No Visual pollack normal: No - able to count fingers R upper/lower quadrants, can only see move/shape L Ears: Normal External canal: Normal Sinus: Normal Nasal: Normal Mouth/Lips: Normal. No: Lesions Mucous membranes: Dry Pharynx: Normal. No: Erythema, Exudate Neck: Normal, Supple. No: Lymphadenopathy, Meningismus, Neck mass - Respiratory Respiratory status: No respiratory distress Chest status: Nontender, No pleuritic chest pain. No: Tender, Pain on movement, Pain with cough, Pain with deep breathing, Prolonged expirations, Splinting Breath sounds: Normal. No: Decreased air movement, Nonproductive cough, Productive cough, Rales, Rhonchi, Stridor, Wheezing Chest palpation: Normal. No: Tender, Ecchymosis, Wounds - Cardiovascular Rhythm: Regular Heart sounds: Normal auscultation Murmur: No Notes: ext are wwp x4, cap refill symmetriucally slightly delayed beyond 2s. +pallor overall - Abdominal Inspection: Normal Distension: No distension Bowel sounds: Normal Tenderness: Nontender Organomegaly: No organomegaly - Rectal Tenderness: No Stool: Black - soft black stool on digital exam. no ttp or masses Hemorrhoids: External - nonthrombosed. No: Anal fissure, Mass - Back Back: Normal, Nontender - Extremities General upper extremity: Normal inspection, Nontender, Normal color, Normal ROM, Normal temperature General lower extremity: Normal inspection, Nontender, Normal color, Normal ROM, Normal temperature. No: Cecile's sign - Neurological Neuro grossly intact: Yes Cognition: Normal Orientation: AAOx4 Stuart Coma Scale Eye Opening: Spontaneous Stuart Coma Scale Verbal: Oriented Ana Coma Scale Motor: Obeys Commands Ana Coma Scale Total: 15 Speech: Normal Cranial nerves: Normal Cerebellar coordination: Finger-nose rhombey - didn't ambulate pt but no ataxia on finger nose or heel mosquera b/l able to sit up in bed w/ assistance and maintain posture for exam w/o evidence truncal instability, Rapid alt. movements Motor strength normal: LUE, RUE, LLE, RLE Sensory: Normal - Psychological Associated symptoms: Normal affect, Normal mood - Skin Skin Temperature: Warm Skin Moisture: Dry Skin Color: Pale. negative: Erythema, Rad, Dusky, Mottled, Cyanotic, Petechia e, Ecchymosis, Plethora Course - Re-evaluation Re-evalutation: pt hgb has dropped from 12.7g/dL ~13 days ago on 10/18/19 to 8.4 g/dL today. had only 1x episode melena in ED course. bp improved and VSS since receiving unit blood w/o complications. adm to hospitalist jane. she and i duscussed to start pt on protonix and adm to [facility] and close monitorign for any cont melena. almost at 5 half lives since taking last night dose of NOAC. - Vital Signs Vital signs: Temp Pulse Resp BP Pulse Ox 97.8 F 68 16 120/48 L 100 11/07/19 15:39 11/07/19 15:39 11/07/19 15:39 11/07/19 15:39 11/07/19 15:39 - Laboratory Result Diagrams: 11/07/19 04:44 11/06/19 04:05 Laboratory results interpreted by me: 10/31/19 10/31/19 10/31/19 08:20 08:20 10:25 WBC 12.7 H RBC 2.77 L Hgb 8.4 L Hct 25.0 L RDW 14.2 H Lymph % (Auto) 12.1 L Absolute Neuts (auto) 10.5 H Seg Neutrophils % 82.6 H Chloride 108 H BUN 49 H Creatine Kinase 20 L NT-Pro-B Natriuret Pep Total Protein 5.6 L Albumin 3.2 L Urine Blood MODERATE H Crossmatch 10/31/19 10/31/19 11:25 12:29 WBC RBC Hgb Hct RDW Lymph % (Auto) Absolute Neuts (auto) Seg Neutrophils % Chloride BUN Creatine Kinase NT-Pro-B Natriuret Pep 1170 H Total Protein Albumin Urine Blood Crossmatch See Detail - EKG Interpretation by Me Additional EKG results interpreted by me: 10/31/19 10:27 ECG reviewed today compared to prior. Today is sinus rate in the 60s, but with premature atrial complexes and dropped ventricular conductance Critical Care Note - Critical Care Note Total time excluding time spent on procedures (mins): 60 Discharge - Discharge Clinical Impression: Dyspnea on minimal exertion, Anticoagulant effect, Melena, On rivaroxaban therapy Condition: Stable Disposition: ADMITTED INPATIENT Admitting Provider: Chiquita (Hospitalist) Unit Admitted: Medical Floor
[2019-10-31] MEDS ORDERED: RINGERS SOLUTION,LACTATED 500 ML IV ONE (10:59)
[2019-10-31] MEDS ORDERED: NORMAL SALINE 250 ML IV PRN (11:01)
[2019-10-31] MEDS ORDERED: RINGERS SOLUTION,LACTATED 250 ML IV ONE (11:11)
[2019-10-31 11:48] LABS: APPEARANCE,URINE CLEAR; BILIRUBIN,URINE NEGATIVE (NEGATIVE); COLOR,URINE YELLOW; GLUCOSE, URINE NEGATIVE (NEGATIVE); KETONES,URINE NEGATIVE (NEGATIVE); LEUKOCYTE ESTERASE,URINE NEGATIVE (NEGATIVE); NITRITE,URINE NEGATIVE (NEGATIVE); PROTEIN,URINE NEGATIVE (NEGATIVE); URINE SPECIFIC GRAVITY 1.019; UROBILINOGEN,URINE NEGATIVE mg/dL (<2.0)
[2019-10-31 13:09] LABS: TROPONIN I 0.045 ng/mL
[2019-10-31] MEDS ORDERED: ALBUTEROL SULFATE 0.083% NEB 2.5 MG/3 ML AMPUL NEB PRN (14:12)
[2019-10-31] MEDS ORDERED: MAG HYDROX/AL HYDROX/SIMETH SUSP 30 ML UDCUP PO PRN (14:12)
[2019-10-31] MEDS ORDERED: ONDANSETRON HCL INJ/PF 4 MG/2 ML SDV IV PRN (14:12)
[2019-10-31] MEDS ORDERED: PROMETHAZINE HCL INJ 25 MG/1 ML VIAL IV PRN (14:12)
--- NOTE | 2019-10-31 15:19 | PDOC H&P ---
History of Present Illness Admission Date/PCP: 10/31/19 13:25 ZORA SÁNCHEZ PA-C Patient complains of: Generalized weakness History of Present Illness: MADIE ROLLINS is a 74 year old female with a past medical history of atrial fibrillation, ocular stroke, hypertension, and obesity who presented to the emergency department today with a complaint of generalized weakness and shortness of breath. She was seen at her PCP yesterday with her complaint of shortness of breath; chest x-ray and flu were negative at that time. She cannot she reports that they did not do any blood work at that time. Evaluation in the emergency department revealed hypotension with a blood pressure of 82/52, tachypnea and hypoxia on room air. She was found to have leukocytosis (WBCs 12.7) and hemoglobin of 8.4 (down from 13.4 two weeks ago), Unremarkable chemistry, indeterminate but stable troponin, and proBNP elevated to 1170. Negative urinalysis but positive occult stool. Patient was provided IV fluids and 1 unit PRBC. She is referred to the hospitalist service for admission and management of the above-stated complaints and findings. Past Medical History Cardiac Medical History: Reports: Atrial Fibrillation, Hypertension Denies: Congestive Heart Failure, Coronary Artery Disease, Myocardial Infarction, Hyperlipidema Pulmonary Medical History: Denies: Asthma, Chronic Obstructive Pulmonary Disease (COPD) Neurological Medical History: Reports: Other - Ocular CVA Denies: Seizures Endocrine Medical History: Reports: Obesity Denies: Diabetes Mellitus Type 2, Hypothyroidism Renal/ Medical History: Reports: None GI Medical History: Denies: Cirrhosis, Crohn's Disease, Hepatitis, Ulcerative Colitis Musculoskeltal Medical History: Denies: Arthritis, Fibromyalgia, Gout Skin Medical History: Denies: Eczema, Psoriasis Psychiatric Medical History: Denies: Depression Hematology: Denies: Anemia, Bleeding Tendencies Past Surgical History Past Surgical History: Reports: Appendectomy, Cholecystectomy, Hysterectomy - partial Social History Information Source: Patient Lives with: Family Smoking Status: Former Smoker Electronic Cigarette use?: No Frequency of Alcohol Use: None Drugs: None Hx Prescription Drug Abuse: No - Advance Directive Resuscitation Status: Do Not Resuscitate Surrogate healthcare decision maker:: The patient's sister, Michela Avila, Family History Family History: CAD, Hypertension. denies: DM, Malignancy, Thyroid Disfunction Parental Family History Reviewed: Yes Children Family History Reviewed: Yes Sibling(s) Family History Reviewed.: Yes Medication/Allergy Home Medications: Aspirin [Adult Low Dose Aspirin EC] 81 mg PO QHS 10/31/19 Metoprolol Succinate [Toprol Xl 50 mg Tab.sr] 50 mg PO QHS 10/31/19 Allergies/Adverse Reactions: codeine Adverse Reaction (Mild, Verified 10/31/19 08:10) GI upset Review of Systems Constitutional: PRESENT: fatigue, weakness. ABSENT: chills, fever(s), headache(s), weight gain, weight loss Eyes: ABSENT: visual disturbances Ears: ABSENT: hearing changes Cardiovascular: PRESENT: dyspnea on exertion. ABSENT: chest pain, edema, orthropnea, palpitations Respiratory: ABSENT: cough, hemoptysis Gastrointestinal: PRESENT: heartburn, melena. ABSENT: abdominal pain, constipation, diarrhea, hematemesis, hematochezia, nausea, vomiting Genitourinary: ABSENT: dysuria, hematuria Musculoskeletal: ABSENT: joint swelling Integumentary: ABSENT: rash, wounds Neurological: PRESENT: weakness. ABSENT: abnormal gait, abnormal speech, confusion, dizziness, focal weakness, syncope Psychiatric: ABSENT: anxiety, depression, homidical ideation, suicidal ideation Endocrine: ABSENT: cold intolerance, heat intolerance, polydipsia, polyuria Hematologic/Lymphatic: ABSENT: easy bleeding, easy bruising Physical Exam Vital Signs: Temp Pulse Resp BP Pulse Ox 98.6 F 86 18 105/48 L 96 10/31/19 14:10 10/31/19 14:15 10/31/19 14:15 10/31/19 14:15 10/31/19 14:15 Intake & Output 10/30/19 10/31/19 11/01/19 06:59 06:59 06:59 Intake Total 250 Output Total 100 Balance 150 Weight 83.915 kg General appearance: PRESENT: no acute distress, cooperative, obese, well-deve loped, well-nourished Head exam: PRESENT: atraumatic, normocephalic Eye exam: PRESENT: conjunctiva pale, EOMI, PERRLA. ABSENT: scleral icterus Ear exam: PRESENT: normal external ear exam Mouth exam: PRESENT: moist, tongue midline Neck exam: ABSENT: carotid bruit, JVD, lymphadenopathy, thyromegaly Respiratory exam: PRESENT: clear to auscultation bianca, symmetrical, unlabored. ABSENT: rales, rhonchi, wheezes Cardiovascular exam: PRESENT: irregular rhythm, +S1, +S2. ABSENT: diastolic murmur, rubs, systolic murmur Pulses: PRESENT: normal dorsalis pedis pul Vascular exam: PRESENT: normal capillary refill GI/Abdominal exam: PRESENT: normal bowel sounds, soft. ABSENT: distended, guarding, mass, organolmegaly, rebound, tenderness Rectal exam: PRESENT: deferred Extremities exam: PRESENT: full ROM. ABSENT: calf tenderness, clubbing, pedal edema Neurological exam: PRESENT: alert, awake, oriented to person, oriented to place, oriented to time, oriented to situation, CN II-XII grossly intact. ABSENT: motor sensory deficit Psychiatric exam: PRESENT: appropriate affect, normal mood. ABSENT: homicidal ideation, suicidal ideation Skin exam: PRESENT: dry, intact, pallor, warm. ABSENT: cyanosis, rash Results Laboratory Results: 10/31/19 08:20 10/31/19 08:20 10/31/19 10/31/19 10/31/19 08:20 08:20 08:20 WBC 12.7 H RBC 2.77 L Hgb 8.4 L Hct 25.0 L MCV 90 MCH 30.2 MCHC 33.4 RDW 14.2 H Plt Count 256 Seg Neutrophils % 82.6 H Sodium 139.2 Potassium 4.2 Chloride 108 H Carbon Dioxide 22 Anion Gap 9 BUN 49 H Creatinine 0.53 Est GFR ( Amer) > 60 Glucose 104 Calcium 8.9 Magnesium 2.1 Total Bilirubin 0.4 AST 26 Alkaline Phosphatase 52 Total Protein 5.6 L Albumin 3.2 L Urine Color Urine Appearance Urine pH Ur Specific [place] Urine Protein Urine Glucose (UA) Urine Ketones Urine Blood Urine Nitrite Ur Leukocyte Esterase Urine WBC (Auto) Blood Type Antibody Screen 10/31/19 10/31/19 10:25 11:25 WBC RBC Hgb Hct MCV MCH MCHC RDW Plt Count Seg Neutrophils % Sodium Potassium Chloride Carbon Dioxide Anion Gap BUN Creatinine Est GFR ( Amer) Glucose Calcium Magnesium Total Bilirubin AST Alkaline Phosphatase Total Protein Albumin Urine Color YELLOW Urine Appearance CLEAR Urine pH 5.0 Ur Specific [place] 1.019 Urine Protein NEGATIVE Urine Glucose (UA) NEGATIVE Urine Ketones NEGATIVE Urine Blood MODERATE H Urine Nitrite NEGATIVE Ur Leukocyte Esterase NEGATIVE Urine WBC (Auto) 2 Blood Type A POSITIVE Antibody Screen NEGATIVE 10/31/19 10/31/19 10/31/19 08:20 08:20 12:29 Creatine Kinase 20 L CK-MB (CK-2) 0.85 Troponin I 0.043 0.045 NT-Pro-B Natriuret Pep 1170 H Assessment and Plan - Diagnosis (1) Acute blood loss anemia Is this a current diagnosis for this admission?: Yes Plan: Secondary to GI bleed; patient with hemoglobin of8.4 down from 13.4 two weeks ago. Occult stool positive with melena. Patient is admitted to the medical floor on continuous cardiac telemetry. She is provided gentle IV fluids. Start Protonix 40 mg IV twice daily. 1 unit PRBCs with follow-up CBC. Monitor off Xarelto; consider surgical consultation. (2) Melena Is this a current diagnosis for this admission?: Yes Plan: As above. (3) On rivaroxaban therapy Is this a current diagnosis for this admission?: Yes Plan: Patient reports that she started Xarelto 8 days ago due to diagnosis of ocular CVA. Now has developed acute blood loss anemia from a presumed upper GI bleed. Discussed importance of holding Xarelto and aspirin due to continued bleeding risk. (4) Atrial fibrillation Is this a current diagnosis for this admission?: Yes Plan: Rate controlled on home dose metoprolol. (5) HTN (hypertension) Qualifiers: Is this a current diagnosis for this admission?: Yes Plan: Continue home dose of metoprolol. Currently hypotensive secondary to ABLA (6) Obesity (BMI 30.0-34.9) Is this a current diagnosis for this admission?: Yes Plan: Dietary discretion and lifestyle modification will be encouraged. Currently n.p.o. - Time Time Spent with patient: 35 or more minutes Medications reviewed and adjusted accordingly: Yes Anticipated discharge: Home Within: within 72 hours - Inpatient Certification Based on my medical assessment, after consideration of the patient's comorbidities, presenting symptoms, or acuity I expect that the services needed warrant INPATIENT care.: Yes I certify that my determination is in accordance with my understanding of Medicare's requirements for reasonable and necessary INPATIENT services [42 CFR 412.3e].: Yes Medical Necessity: Need For IV Fluids, Need For Continuous Telemetry Monitoring, Risk of Diagnosis Which Will Require Inpatient Eval/Care/Monitoring
[2019-10-31] MEDS: NORMAL SALINE 250 ML IV PRN ×2 (16:26→16:27)
[2019-10-31] MEDS: NORMAL SALINE 1000 ML 1,000 ML IV PRN (18:17)
[2019-10-31 21:46] LABS: ABSOLUTE BASOPHILS # (AUTO) 0.1 10^3/uL (0.0-0.2); ABSOLUTE EOSINOPHILS # (AUTO) 0.1 10^3/uL (0.0-0.6); ABSOLUTE LYMPHOCYTES (AUTO) 2.4 10^3/uL (0.5-4.7); ABSOLUTE MONOCYTES (AUTO) 0.9 10^3/uL (0.1-1.4); ABSOLUTE NEUT (AUTO) 8.2 10^3/uL (1.7-8.2); BASOPHILS % (AUTO) 0.5 % (0-2); EOSINOPHILS % (AUTO) 0.8 % (0-6); HEMATOCRIT 26.1 % (36.0-47.0); HEMOGLOBIN 8.9 g/dL (12.0-15.5); LYMPHOCYTES % (AUTO) 20.9 % (13-45); MEAN CORPUSCULAR HEMOGLOBIN 30.6 pg (27.0-33.4); MEAN CORPUSCULAR HGB CONC 34.1 g/dL (32.0-36.0); MEAN CORPUSCULAR VOLUME 90 fl (80-97); MONOCYTES % (AUTO) 7.4 % (3-13); PLATELET COUNT 205 10^3/uL (150-450); RED CELL DISTRIBUTION WIDTH 14.1 % (11.5-14.0); SEGMENTED NEUTROPHILS % (AUTO) 70.4 % (42-78); TOTAL CELLS COUNTED % (AUTO) 100 %; WHITE BLOOD COUNT 11.6 10^3/uL (4.0-10.5)
[2019-10-31] MEDS ORDERED: METOPROLOL SUCCINATE 50 MG TAB.SR.24H PO SCH (22:00)
[2019-10-31] MEDS: PANTOPRAZOLE SODIUM 40 MG VIAL IV SCH (22:05)
[2019-11-01 05:07] LABS: HEMATOCRIT 23.4 % (36.0-47.0); HEMOGLOBIN 8.1 g/dL (12.0-15.5); MEAN CORPUSCULAR HGB CONC 34.6 g/dL (32.0-36.0); MEAN CORPUSCULAR VOLUME 90 fl (80-97); PLATELET COUNT 180 10^3/uL (150-450); RED CELL DISTRIBUTION WIDTH 14.2 % (11.5-14.0); WHITE BLOOD COUNT 9.1 10^3/uL (4.0-10.5)
[2019-11-01 05:29] LABS: ANION GAP 5 (5-19); CALCIUM 8.3 mg/dL (8.4-10.2); CARBON DIOXIDE 23 mmol/L (22-30); CHLORIDE 112 mmol/L (98-107); GLUCOSE 76 mg/dL (75-110); POTASSIUM 3.8 mmol/L (3.6-5.0)
[2019-11-01 05:42] LABS: BLOOD UREA NITROGEN 18 mg/dL (7-20)
[2019-11-01] MEDS ORDERED: METOPROLOL TARTRATE PF/INJ 5 MG/5 ML SDV IV ONE (10:51)
[2019-11-01] MEDS ORDERED: METOPROLOL TARTRATE PF/INJ 5 MG/5 ML SDV IV PRN (11:22)
[2019-11-01] MEDS: PANTOPRAZOLE SODIUM 40 MG VIAL IV SCH (11:26)
[2019-11-01] MEDS: NORMAL SALINE 1000 ML 1,000 ML IV PRN (13:02)
--- NOTE | 2019-11-01 14:01 | PDOC PROGRESS REPORT ---
Subjective Progress Note for:: 11/01/19 Subjective:: MADIE ROLLINS is a 74 year old female with a past medical history of atrial fibrillation, ocular stroke, hypertension, and obesity who presented to the emergency department today with a complaint of generalized weakness and shortness of breath. She was seen at her PCP yesterday with her complaint of shortness of breath; chest x-ray and flu were negative at that time. She cannot she reports that they did not do any blood work at that time. Evaluation in the emergency department revealed hypotension with a blood pressure of 82/52, tachypnea and hypoxia on room air. She was found to have leukocytosis (WBCs 12.7) and hemoglobin of 8.4 (down from 13.4 two weeks ago), Unremarkable chemistry, indeterminate but stable troponin, and proBNP elevated to 1170. Negative urinalysis but positive occult stool. Patient was provided IV fluids and 1 unit PRBC. She is referred to the hospitalist service for admission and management of the above-stated complaints and findings. 11/01/2019. No acute events overnight. Patient comfortably sitting up in apparent distress, stating that for the last 1 month she has been feeling short of breath and nobody has figured out why, she still have something till having some melena but not has had any hematochezia, hemoptysis or hematemesis, patient denying any chest pain, nausea, vomiting, diarrhea, constipation or any urinary symptoms. Reason For Visit: ABLA, GI BLEED Physical Exam Vital Signs: Temp Pulse Resp BP Pulse Ox 97.7 F 96 16 126/47 H 98 11/01/19 07:29 11/01/19 07:29 11/01/19 07:29 11/01/19 07:29 11/01/19 07:29 Intake & Output 10/31/19 11/01/19 11/02/19 06:59 06:59 06:59 Intake Total 2280 Output Total 550 Balance 1730 Weight 84.2 kg General appearance: PRESENT: obese Head exam: PRESENT: atraumatic, normocephalic Respiratory exam: PRESENT: clear to auscultation bianca. ABSENT: rales, rhonchi, wheezes Cardiovascular exam: PRESENT: RRR. ABSENT: diastolic murmur, rubs, systolic murmur GI/Abdominal exam: PRESENT: normal bowel sounds, soft. ABSENT: distended, guarding, mass, organolmegaly, rebound, tenderness Neurological exam: PRESENT: alert, awake, oriented to person, oriented to place, oriented to time, oriented to situation, CN II-XII grossly intact. ABSENT: motor sensory deficit Results Laboratory Results: 11/01/19 03:42 11/01/19 03:42 10/31/19 10/31/19 11/01/19 11:25 21:34 03:42 WBC 11.6 H 9.1 RBC 2.90 L 2.60 L Hgb 8.9 L 8.1 L Hct 26.1 L 23.4 L MCV 90 90 MCH 30.6 31.0 MCHC 34.1 34.6 RDW 14.1 H 14.2 H Plt Count 205 180 Seg Neutrophils % 70.4 Sodium Potassium Chloride Carbon Dioxide Anion Gap BUN Creatinine Est GFR ( Amer) Glucose Calcium Blood Type A POSITIVE Antibody Screen NEGATIVE 11/01/19 03:42 WBC RBC Hgb Hct MCV MCH MCHC RDW Plt Count Seg Neutrophils % Sodium 140.4 Potassium 3.8 Chloride 112 H Carbon Dioxide 23 Anion Gap 5 BUN 18 D Creatinine 0.51 L Est GFR ( Amer) > 60 Glucose 76 Calcium 8.3 L Blood Type Antibody Screen 10/31/19 10/31/19 10/31/19 08:20 08:20 12:29 Creatine Kinase 20 L CK-MB (CK-2) 0.85 Troponin I 0.043 0.045 NT-Pro-B Natriuret Pep 1170 H Assessment and Plan - Diagnosis (1) Acute GI bleeding Is this a current diagnosis for this admission?: Yes Plan: Most likely due to anticoagulation for history of A. fib RVR. Patient denies any history of GI malignancy. Apparently patient was diagnosed with A. fib in 2018 and last month was restarted on anticoagulation by her equine intern. Status post 1 PRBC transfusion. H&H stable. Patient wants to stop her anticoagulation. Monitor H&H. DC anticoagulation. Hold antiplatelets. Consult gastroenterology for possible upper or lower GI endoscopy. (2) Acute systolic heart failure Is this a current diagnosis for this admission?: Yes Plan: Likely due to history of A. fib RVR. Denies any history of CAD. Complaining of mild dyspnea on exertion for several months. Denies orthopnea or PND. proBNP 1170. Recent echo done at [facility] we will request records. Will start on cautious diuresis guided by volume status, continue metoprolol. (3) History of CVA (cerebrovascular accident) Is this a current diagnosis for this admission?: Yes Plan: History of CVA and occipital region on 09/2019. No residual deficits. Patient was hospitalized here at [facility] CT head was negative and patient was tra [facility]red to [facility] per patient. As per patient she was told she had a stroke in occipital region confirmed by MRI. Based on lipid panel on 09/23/2018 her ASCVD risk score is only 21.7%. We will start on high intensity statin. Follow-up with PCP for monitoring LFTs. (4) Hyperlipidemia Is this a current diagnosis for this admission?: Yes Plan: ASCVD risk score of 21.7%. High intensity statins. Follow-up with PCP for LFT monitoring. (5) Atrial fibrillation Qualifiers: Atrial fibrillation type: paroxysmal Qualified Code(s): I48.0 - Paroxysmal atrial fibrillation Is this a current diagnosis for this admission?: Yes Plan: Rate controlled. Was anticoagulated. Patient wants to DC her anticoagulation due to recent GI bleed. Patient was extensively counseled about risk and benefit of continuing anticoagulation. Continue metoprolol p.o. PRN IV metoprolol. (6) Elevated troponin I level Is this a current diagnosis for this admission?: Yes Plan: Likely due to A. fib RVR complicated by underlying acute CHF. EKG no acute changes. Continue treating underlying acute CHF and atrial fibrillation. (7) HTN (hypertension) Qualifiers: Is this a current diagnosis for this admission?: Yes Plan: Normotensive. Continue home meds. Adjust meds as needed.
[2019-11-01] MEDS ORDERED: FUROSEMIDE INJ/PF 20 MG/2 ML SDV ONE (15:57)
[2019-11-01] MEDS ORDERED: METOPROLOL SUCCINATE 25 MG TAB.SR.24H PO ONE (16:01)
[2019-11-01] MEDS: PANTOPRAZOLE SODIUM 40 MG TABLET.DR PO SCH (16:03)
[2019-11-01] MEDS ORDERED: METOPROLOL TARTRATE 25 MG TABLET PO ONE (16:15)
[2019-11-01] MEDS ORDERED: FUROSEMIDE INJ/PF 20 MG/2 ML SDV IV ONE (16:15)
[2019-11-01] MEDS: LEVALBUTEROL HCL NEB 0.63 MG/3 ML AMPUL NEB SCH ×2 (16:47→20:41)
--- NOTE | 2019-11-01 19:33 | PDOC CONSULTATION ---
Consultation Consult Date: 11/01/19 Provider Consulted: THOMAS MCNALLY Consult reason:: GI bleed for possible endoscopy History of Present Illness Admission Date/PCP: 10/31/19 15:16 ZORA SÁNCHEZ PA-C History of Present Illness: MADIE ROLLINS is a 74 year old female with history of atrial fib on Xarelto and history of CVA, started noticing dark stools on 10/30/2019. 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 In the ED she was noted to have a hemoglobin of about 8.4 and 2 weeks prior was about 13.2. Her last intake of Xarelto was 10/30/2019. Past Medical History Cardiac Medical History: Reports: Atrial Fibrillation, Hypertension Denies: Congestive Heart Failure, Coronary Artery Disease, DVT, Myocardial Infarction, Hyperlipidema, Pulmonary Embolism Pulmonary Medical History: Denies: Asthma, Chronic Obstructive Pulmonary Disease (COPD) Neurological Medical History: Reports: Migraine - occular, Other - Ocular CVA Denies: Seizures Endocrine Medical History: Reports: Obesity Denies: Diabetes Mellitus Type 1, Diabetes Mellitus Type 2, Hyperthyroidism, Hypothyroidism Renal/ Medical History: Reports: None GI Medical History: Denies: Cirrhosis, Crohn's Disease, Hepatitis, Ulcerative Colitis Musculoskeltal Medical History: Denies: Arthritis, Fibromyalgia, Gout Skin Medical History: Denies: Eczema, Psoriasis Psychiatric Medical History: Denies: Depression Hematology: Denies: Anemia, Bleeding Tendencies Past Surgical History Past Surgical History: Reports: Appendectomy, Cholecystectomy, Hysterectomy - partial Social History Lives with: Family Smoking Status: Former Smoker Electronic Cigarette use?: No Frequency of Alcohol Use: None Hx Recreational Drug Use: No Drugs: None Hx Prescription Drug Abuse: No - Advance Directive Resuscitation Status: Do Not Resuscitate Family History Family History: CAD, Hypertension. denies: DM, Malignancy, Thyroid Disfunction Parental Family History Reviewed: Yes Children Family History Reviewed: No Sibling(s) Family History Reviewed.: No Medication/Allergy Home Medications: Aspirin [Adult Low Dose Aspirin EC] 81 mg PO QHS 10/31/19 Metoprolol Succinate [Toprol Xl 50 mg Tab.sr] 50 mg PO QHS 10/31/19 Allergies/Adverse Reactions: codeine Adverse Reaction (Mild, Verified 10/31/19 08:10) GI upset Review of Systems Constitutional: PRESENT: weakness, other - Denies fever no chills Respiratory: PRESENT: dyspnea Gastrointestinal: PRESENT: melena, other - Denies abdominal pains Physical Exam Vital Signs: Temp Pulse Resp BP Pulse Ox 97.7 F 144 H 18 113/80 97 11/01/19 15:41 11/01/19 16:47 11/01/19 16:47 11/01/19 15:41 11/01/19 16:47 Intake & Output 10/31/19 11/01/19 11/02/19 06:59 06:59 06:59 Intake Total 2280 1000 Output Total 550 450 Balance 1730 550 Weight 84.2 kg General appearance: PRESENT: no acute distress, obese Head exam: PRESENT: atraumatic Mouth exam: PRESENT: neck supple Neck exam: PRESENT: full ROM Respiratory exam: PRESENT: clear to auscultation bianca Cardiovascular exam: PRESENT: irregular rhythm Pulses: PRESENT: normal radial pulses Vascular exam: PRESENT: normal capillary refill GI/Abdominal exam: PRESENT: soft Rectal exam: PRESENT: deferred Extremities exam: PRESENT: full ROM Musculoskeletal exam: PRESENT: full ROM Neurological exam: PRESENT: alert, oriented to person, oriented to place, oriented to time, oriented to situation Psychiatric exam: PRESENT: appropriate affect Skin exam: PRESENT: normal color, warm Results Laboratory Results: 11/01/19 03:42 11/01/19 03:42 10/31/19 11/01/19 11/01/19 21:34 03:42 03:42 WBC 11.6 H 9.1 RBC 2.90 L 2.60 L Hgb 8.9 L 8.1 L Hct 26.1 L 23.4 L MCV 90 90 MCH 30.6 31.0 MCHC 34.1 34.6 RDW 14.1 H 14.2 H Plt Count 205 180 Seg Neutrophils % 70.4 Sodium 140.4 Potassium 3.8 Chloride 112 H Carbon Dioxide 23 Anion Gap 5 BUN 18 D Creatinine 0.51 L Est GFR ( Amer) > 60 Glucose 76 Calcium 8.3 L 10/31/19 10/31/19 10/31/19 08:20 08:20 12:29 Creatine Kinase 20 L CK-MB (CK-2) 0.85 Troponin I 0.043 0.045 NT-Pro-B Natriuret Pep 1170 H 11/01/19 12:33 Creatine Kinase CK-MB (CK-2) Troponin I 0.053 NT-Pro-B Natriuret Pep Assessment & Plan - Diagnosis (1) Congestive heart failure Is this a current diagnosis for this admission?: Yes (2) Acute GI bleeding Is this a current diagnosis for this admission?: Yes (3) History of CVA (cerebrovascular accident) Is this a current diagnosis for this admission?: Yes (4) Melena Is this a current diagnosis for this admission?: Yes (5) On rivaroxaban therapy Is this a current diagnosis for this admission?: Yes (6) HTN (hypertension) Qualifiers: Is this a current diagnosis for this admission?: Yes - Time Time Spent: 30 to 50 Minutes - Plan Summary Plan Summary: 74-year-old female with history of A. 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 Went to ED because of severe weakness and noted to have a hemoglobin of 8.4 down from about 13.42 weeks ago. He was recent Eliseo diagnosed on this admission to have a congestive heart failure with elevated BNP. Her hemoglobin has been fairly stable after a unit of packed cells. She refused to have any colonoscopy done and would like to hold off doing any upper GI endoscopy unless is absolutely necessary. At present she has evidence of CHF which may make her high risk for any surgical intervention such as endoscopy. Plans: Patient appears stable at this time. She is adamant about not getting any colonoscopy because of friends having bad experiences. She also feels she has congestive heart failure and since she feels stable at this time she would like to hold off doing any endoscopy procedures. She also stop her Xarelto and will 10/30/2019 and she feels that all her bleeding is from the side effect of the Xarelto. We will then sign off but call us if patient absolutely needs an upper endoscopy at least.
--- NOTE | 2019-11-01 20:54 | EKG REPORT ---
SEVERITY:- ABNORMAL ECG - ATRIAL FIBRILLATION WITH RAPID V-RATE REPOLARIZATION ABNORMALITY, PROB RATE RELATED : Confirmed by: Cristian Cid 01-Nov-2019 20:53:57
[2019-11-01] MEDS: FUROSEMIDE INJ/PF 20 MG/2 ML SDV IV SCH (22:10)
[2019-11-01] MEDS: ACETAMINOPHEN 325 MG TABLET PO PRN (22:56)
[2019-11-02] MEDS: LEVALBUTEROL HCL NEB 0.63 MG/3 ML AMPUL NEB SCH ×3 (00:34→08:31)
[2019-11-02 05:30] LABS: ABSOLUTE BASOPHILS # (AUTO) 0.1 10^3/uL (0.0-0.2); ABSOLUTE EOSINOPHILS # (AUTO) 0.2 10^3/uL (0.0-0.6); ABSOLUTE LYMPHOCYTES (AUTO) 2.1 10^3/uL (0.5-4.7); ABSOLUTE MONOCYTES (AUTO) 0.7 10^3/uL (0.1-1.4); ABSOLUTE NEUT (AUTO) 4.8 10^3/uL (1.7-8.2); BASOPHILS % (AUTO) 0.8 % (0-2); EOSINOPHILS % (AUTO) 2.8 % (0-6); HEMATOCRIT 23.9 % (36.0-47.0); HEMOGLOBIN 8.1 g/dL (12.0-15.5); LYMPHOCYTES % (AUTO) 26.4 % (13-45); MEAN CORPUSCULAR HEMOGLOBIN 30.9 pg (27.0-33.4); MEAN CORPUSCULAR HGB CONC 33.8 g/dL (32.0-36.0); MEAN CORPUSCULAR VOLUME 91 fl (80-97); MONOCYTES % (AUTO) 8.6 % (3-13); PLATELET COUNT 196 10^3/uL (150-450); RED BLOOD COUNT 2.62 10^6/uL (3.72-5.28); RED CELL DISTRIBUTION WIDTH 14.6 % (11.5-14.0); SEGMENTED NEUTROPHILS % (AUTO) 61.4 % (42-78); TOTAL CELLS COUNTED % (AUTO) 100 %; WHITE BLOOD COUNT 7.9 10^3/uL (4.0-10.5)
[2019-11-02 05:52] LABS: ANION GAP 5 (5-19); BLOOD UREA NITROGEN 10 mg/dL (7-20); CALCIUM 8.8 mg/dL (8.4-10.2); CARBON DIOXIDE 25 mmol/L (22-30); CHLORIDE 110 mmol/L (98-107); GLUCOSE 89 mg/dL (75-110); POTASSIUM 3.7 mmol/L (3.6-5.0)
[2019-11-02] MEDS: PANTOPRAZOLE SODIUM 40 MG TABLET.DR PO SCH ×2 (06:34→19:12)
[2019-11-02] MEDS: METOPROLOL SUCCINATE 50 MG TAB.SR.24H PO SCH ×2 (09:29→19:12)
[2019-11-02] MEDS: FUROSEMIDE INJ/PF 20 MG/2 ML SDV IV SCH ×2 (09:30→21:20)
[2019-11-02] MEDS ORDERED: METOPROLOL SUCCINATE 50 MG TAB.SR.24H PO SCH ×2 (10:00)
--- NOTE | 2019-11-02 10:00 | PDOC PROGRESS REPORT ---
Subjective Progress Note for:: 11/02/19 Subjective:: MADIE ROLLINS is a 74 year old female with a past medical history of atrial fibrillation, ocular stroke, hypertension, and obesity who presented to the emergency department today with a complaint of generalized weakness and shortness of breath. She was seen at her PCP yesterday with her complaint of shortness of breath; chest x-ray and flu were negative at that time. She cannot she reports that they did not do any blood work at that time. Evaluation in the emergency department revealed hypotension with a blood pressure of 82/52, tachypnea and hypoxia on room air. She was found to have leukocytosis (WBCs 12.7) and hemoglobin of 8.4 (down from 13.4 two weeks ago), Unremarkable chemistry, indeterminate but stable troponin, and proBNP elevated to 1170. Negative urinalysis but positive occult stool. Patient was provided IV fluids and 1 unit PRBC. She is referred to the hospitalist service for admission and management of the above-stated complaints and findings. 11/01/2019. No acute events overnight. Patient comfortably sitting up in apparent distress, stating that for the last 1 month she has been feeling short of breath and nobody has figured out why, she still have something till having some melena but not has had any hematochezia, hemoptysis or hematemesis, patient denying any chest pain, nausea, vomiting, diarrhea, constipation or any urinary symptoms. 11/02/2019. Overnight patient was in A. fib RVR and is still complaining mild dyspnea on exertion. Denies any chest pain, nausea, vomiting, diarrhea, constipation or any urinary symptoms. Reason For Visit: ABLA, GI BLEED Physical Exam Vital Signs: Temp Pulse Resp BP Pulse Ox 98.1 F 77 16 122/50 L 99 11/02/19 07:55 11/02/19 07:55 11/02/19 07:55 11/02/19 07:55 11/02/19 07:55 Intake & Output 11/01/19 11/02/19 11/03/19 06:59 06:59 06:59 Intake Total 2280 1000 Output Total 550 1100 Balance 1730 -100 Weight 84.2 kg 60 kg General appearance: PRESENT: no acute distress, well-developed, well-nourished Head exam: PRESENT: atraumatic, normocephalic Respiratory exam: PRESENT: clear to auscultation bianca. ABSENT: rales, rhonchi, wheezes Cardiovascular exam: PRESENT: irregular rhythm. ABSENT: diastolic murmur, rubs, systolic murmur GI/Abdominal exam: PRESENT: normal bowel sounds, soft. ABSENT: distended, guarding, mass, organolmegaly, rebound, tenderness Neurological exam: PRESENT: alert, awake, oriented to person, oriented to place, oriented to time, oriented to situation, CN II-XII grossly intact. ABSENT: motor sensory deficit Results Laboratory Results: 11/02/19 05:04 11/02/19 05:04 11/02/19 11/02/19 05:04 05:04 WBC 7.9 RBC 2.62 L Hgb 8.1 L Hct 23.9 L MCV 91 MCH 30.9 MCHC 33.8 RDW 14.6 H Plt Count 196 Seg Neutrophils % 61.4 Sodium 139.8 Potassium 3.7 Chloride 110 H Carbon Dioxide 25 Anion Gap 5 BUN 10 Creatinine 0.48 L Est GFR ( Amer) > 60 Glucose 89 Calcium 8.8 10/31/19 10/31/19 10/31/19 08:20 08:20 12:29 Creatine Kinase 20 L CK-MB (CK-2) 0.85 Troponin I 0.043 0.045 NT-Pro-B Natriuret Pep 1170 H 11/01/19 12:33 Creatine Kinase CK-MB (CK-2) Troponin I 0.053 NT-Pro-B Natriuret Pep Assessment and Plan - Diagnosis (1) Acute on chronic diastolic (congestive) heart failure Is this a current diagnosis for this admission?: Yes Plan: Likely due to history of A. fib RVR. Denies any history of CAD. Complaining of mild dyspnea on exertion for several months. Denies orthopnea or PND. proBNP 1170. Review of records obtained from [facility] shows hyperdynamic heart with ejection fraction of 70% and grade 2 diastolic dysfunction. Continue cautious diuresis guided by volume status, continue metoprolol. (2) Acute GI bleeding Is this a current diagnosis for this admission?: Yes Plan: Resolved. H&H stable. Status post 1 PRBC transfusion on admission. Most likely due to anticoagulation for history of A. fib RVR. Patient denies any history of GI malignancy. Apparently patient was diagnosed with A. 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 Patient wants to stop her anticoagulation. Monitor H&H. DC anticoagulation. Hold antiplatelets. Consult gastroenterology for possible upper or lower GI endoscopy. (3) Acute systolic heart failure Is this a current diagnosis for this admission?: Yes (4) History of CVA (cerebrovascular accident) Is this a current diagnosis for this admission?: Yes Plan: History of CVA and occipital region on 09/2019. No residual deficits. Patient was hospitalized here at [facility] CT head was negative and patient was transferred to [facility]. Review of record obtained from [facility] shows nonhemorrhagic infarction in the posterior circulation. Based on lipid panel on 09/23/2018 her ASCVD risk score is only 21.7%. We will start on high intensity statin. Follow-up with PCP for monitoring LFTs. (5) Hyperlipidemia Is this a current diagnosis for this admission?: Yes Plan: ASCVD risk score of 21.7%. High intensity statins. Follow-up with PCP for LFT monitoring. (6) Atrial fibrillation Qualifiers: Atrial fibrillation type: paroxysmal Qualified Code(s): I48.0 - Paroxysmal atrial fibrillation Is this a current diagnosis for this admission?: Yes Plan: Rate controlled. Was anticoagulated. Patient wants to DC her anticoagulation due to recent GI bleed. Patient was extensively counseled about risk and benefit of continuing anticoagulation. Continue metoprolol p.o. PRN IV metoprolol. (7) Elevated troponin I level Is this a current diagnosis for this admission?: Yes Plan: Likely due to A. fib RVR complicated by underlying acute CHF. Cannot rule out ACS. Patient appears euvolemic. Lung examination benign. Still complaining of dyspnea on exertion and occasional left jaw pain. With mild elevation in troponins. Patient never had LHC or stress test. Given persistently mild elevation in troponins and high risk for CAD, will consult cardiology for further recommendation. Meawhile will continue treating underlying acute CHF and atrial fibrillation. (8) HTN (hypertension) Qualifiers: Is this a current diagnosis for this admission?: Yes Plan: Normotensive. Continue home meds. Adjust meds as needed.
[2019-11-02] MEDS ORDERED: ALBUTEROL SULFATE 0.083% NEB 2.5 MG/3 ML AMPUL NEB PRN (12:54)
[2019-11-02] MEDS: ACETAMINOPHEN 325 MG TABLET PO PRN (19:21)
[2019-11-02] MEDS ORDERED: DOCUSATE SODIUM 100 MG CAPSULE PO ONE (21:00)
[2019-11-03] MEDS: FUROSEMIDE INJ/PF 20 MG/2 ML SDV IV SCH ×2 (09:06→21:09)
[2019-11-03] MEDS: PANTOPRAZOLE SODIUM 40 MG TABLET.DR PO SCH ×2 (09:07→17:29)
[2019-11-03] MEDS: METOPROLOL SUCCINATE 50 MG TAB.SR.24H PO SCH ×2 (09:07→17:29)
[2019-11-03] MEDS: DOCUSATE SODIUM 100 MG CAPSULE PO SCH ×2 (09:09→17:30)
--- NOTE | 2019-11-03 16:31 | PDOC PROGRESS REPORT ---
Subjective Progress Note for:: 11/03/19 Subjective:: MADIE ROLLINS is a 74 year old female with a past medical history of atrial fibrillation, ocular stroke, hypertension, and obesity who presented to the emergency department today with a complaint of generalized weakness and shortness of breath. She was seen at her PCP yesterday with her complaint of shortness of breath; chest x-ray and flu were negative at that time. She cannot she reports that they did not do any blood work at that time. Evaluation in the emergency department revealed hypotension with a blood pressure of 82/52, tachypnea and hypoxia on room air. She was found to have leukocytosis (WBCs 12.7) and hemoglobin of 8.4 (down from 13.4 two weeks ago), Unremarkable chemistry, indeterminate but stable troponin, and proBNP elevated to 1170. Negative urinalysis but positive occult stool. Patient was provided IV fluids and 1 unit PRBC. She is referred to the hospitalist service for admission and management of the above-stated complaints and findings. 11/01/2019. No acute events overnight. Patient comfortably sitting up in apparent distress, stating that for the last 1 month she has been feeling short of breath and nobody has figured out why, she still have something till having some melena but not has had any hematochezia, hemoptysis or hematemesis, patient denying any chest pain, nausea, vomiting, diarrhea, constipation or any urinary symptoms. 11/02/2019. Overnight patient was in A. fib RVR and is still complaining mild dyspnea on exertion. Denies any chest pain, nausea, vomiting, diarrhea, constipation or any urinary symptoms. 11/03/2019. No acute events overnight. Still complaining of mild shortness of breath otherwise denies any fever, chills, nausea, vomiting, diarrhea, constipation or any urinary symptoms. Could potentially be discharged today however patient stating that she would like to be discharged tomorrow as she does not feel like she is ready yet because she still having some mild dyspnea exertion. Reason For Visit: ABLA, GI BLEED Physical Exam Vital Signs: Temp Pulse Resp BP Pulse Ox 98.2 F 58 L 16 113/38 L 100 11/03/19 11:26 11/03/19 14:00 11/03/19 11:26 11/03/19 11:26 11/03/19 11:26 Intake & Output 11/02/19 11/03/19 11/04/19 06:59 06:59 06:59 Intake Total 1000 900 Output Total 1100 Balance -100 900 Weight 60 kg 59.7 kg General appearance: PRESENT: no acute distress, well-developed, well-nourished Head exam: PRESENT: atraumatic, normocephalic Respiratory exam: PRESENT: clear to auscultation bianca. ABSENT: rales, rhonchi, wheezes Cardiovascular exam: PRESENT: RRR. ABSENT: diastolic murmur, rubs, systolic murmur GI/Abdominal exam: PRESENT: normal bowel sounds, soft. ABSENT: distended, guarding, mass, organolmegaly, rebound, tenderness Neurological exam: PRESENT: alert, awake, oriented to person, oriented to place, oriented to time, oriented to situation, CN II-XII grossly intact. ABSENT: mo tor sensory deficit Results Laboratory Results: 11/02/19 05:04 11/02/19 05:04 10/31/19 10/31/19 10/31/19 08:20 08:20 12:29 Creatine Kinase 20 L CK-MB (CK-2) 0.85 Troponin I 0.043 0.045 NT-Pro-B Natriuret Pep 1170 H 11/01/19 12:33 Creatine Kinase CK-MB (CK-2) Troponin I 0.053 NT-Pro-B Natriuret Pep Assessment and Plan - Diagnosis (1) Acute on chronic diastolic (congestive) heart failure Is this a current diagnosis for this admission?: Yes Plan: Likely due to history of A. fib RVR. Denies any history of CAD. Complaining of mild dyspnea on exertion for several months. Denies orthopnea or PND. proBNP 1170. Review of records obtained from [facility] shows hyperdynamic heart with ejection fraction of 70% and grade 2 diastolic dysfunction. Continue cautious diuresis guided by volume status, continue metoprolol. (2) Acute GI bleeding Is this a current diagnosis for this admission?: Yes Plan: Resolved. H&H stable. Status post 1 PRBC transfusion on admission. Most likely due to anticoagulation for history of A. fib RVR. Patient denies any history of GI malignancy. Apparently patient was diagnosed with A. 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 Patient wants to stop her anticoagulation. Monitor H&H. DC anticoagulation. Hold antiplatelets. Consult gastroenterology for possible upper or lower GI endoscopy. (3) Acute systolic heart failure Is this a current diagnosis for this admission?: Yes Plan: Likely due to history of A. fib RVR. Denies any history of CAD. Complaining of mild dyspnea on exertion for several months. Denies orthopnea or PND. proBNP 1170. Recent echo done at [facility] we will request records. Will start on cautious diuresis guided by volume status, continue metoprolol. (4) History of CVA (cerebrovascular accident) Is this a current diagnosis for this admission?: Yes Plan: History of CVA and occipital region on 09/2019. No residual deficits. Patient was hospitalized here at [facility] CT head was negative and patient was transferred to [facility]. Review of record obtained from [facility] shows nonhemorrhagic infarction in the posterior circulation. Based on lipid panel on 09/23/2018 her ASCVD risk score is only 21.7%. We will start on high intensity statin. Follow-up with PCP for monitoring LFTs. (5) Hyperlipidemia Is this a current diagnosis for this admission?: Yes Plan: ASCVD risk score of 21.7%. High intensity statins. Follow-up with PCP for LFT monitoring. (6) Atrial fibrillation Qualifiers: Atrial fibrillation type: paroxysmal Qualified Code(s): I48.0 - Paroxysmal atrial fibrillation Is this a current diagnosis for this admission?: Yes Plan: Rate controlled. Was anticoagulated. Patient wants to DC her anticoagulation due to recent GI bleed. Patient was extensively counseled about risk and benefit of continuing anticoagulation. Continue metoprolol p.o. PRN IV metoprolol. (7) Elevated troponin I level Is this a current diagnosis for this admission?: Yes Plan: Likely due to A. fib RVR complicated by underlying acute CHF. Cannot rule out ACS. Patient appears euvolemic. Lung examination benign. Still complaining of dysp ethel on exertion and occasional left jaw pain. With mild elevation in troponins. Patient never had LHC or stress test. Given persistently mild elevation in troponins and high risk for CAD, will consult cardiology for further recommendation. Meawhile will continue treating underlying acute CHF and atrial fibrillation. (8) HTN (hypertension) Qualifiers: Is this a current diagnosis for this admission?: Yes Plan: Normotensive. Continue home meds. Adjust meds as needed.
--- NOTE | 2019-11-03 17:18 | PDOC CONSULTATION ---
Consultation-Blank Consultation: CARDIOLOGY CONSULTATION by Dr. Magdalena Chandler on 11/03/2019. Patient seen at 4 PM. 60 minutes spent as patient more than 50% spent on direct patient care. REASON FOR CONSULTATION: Patient with history of proximal atrial fibrillation, anemia with hemoglobin positive stools on Xarelto, and intermittent jaw pain. Hence for cardiology assessment. CONSULT REQUESTING PHYSICIAN: , [facility]. HISTORY OF PRESENT ILLNESS: Patient is a pleasant 74-year-old female who appears to be younger than his stated age with a history of proximal atrial fibrillation, and history of ocular stroke admitted with generalized fatigue and shortness of breath. In the emergency room the patient was found to be anemic with a hemoglobin of 8.4 which dropped from 13.4, this is when the patient was on Xarelto, and also has a Hemoccult positive stool. She was also found to be in atrial fibrillation with a rapid medical response. She converted to sinus rhythm on a Cardizem drip her Xarelto was held. She did receive 1 unit of packed RBCs.. At present the patient in no acute distress. She states she was seen by of waterworks supervisor a few months ago and found to be in proximal atrial fibrillation on her and was placed on metoprolol and aspirin. Subsequently she came to the hospital due to CVA and atrial fibrillation with rapid response. She was transferred to [facility] where work-up showed that the patient did have a stroke and the patient was recommended to be placed on a newer oral anticoagulation agent. But the patient wanted to discuss it with the her primary waterworks supervisor. Her MRA of the head and neck were negative. Her echocardiogram showed normal left ventricular chamber size wall thickness. The left femoral ejection fraction was hyperdynamic with a EF of 70%. There was grade 2 LV diastolic dysfunction. There was aortic sclerosis without stenosis. There was no aortic regurgitation. There was trace mitral regurgitation. There was no mitral stenosis or mitral prolapse. She had no TR, and hence RVSP could not be calculated. There was no pericardial effusion. Later as an outpatient her primary waterworks supervisor did put her on Xarelto, and the same day the patient had increasing shortness of breath and was found to be in atrial fibrillation her medications were adjusted. The patient's dyspnea on exertion and generalized fatigue increased and hence she came to the emergency room. The patient states that she feels atrial fibrillation only when the ventricular response is very rapid. At times when she is in atrial fibrillation she has jaw pain which is relieved with the heart rate is controlled on the patient converted to sinus rhythm. There is no prior history of NV. She denies any history of hypertension. This is after repeated questioning. There is no see of diabetes mellitus or thyroid disease. There is no history of asthma COPD or sleep apnea there is no history of chronic kidney disease. She has no prior history of GI bleed except recently when she had occult blood positive stools with the patient being on Xarelto. She has not had a GI work-up, and the patient states she would refuse to have a colonoscopy, if at all recommended by the GI specialist. The patient's corrected Baron vas 2 score is 5. Past Medical History Cardiac Medical History: Reports: Atrial Fibrillation, paroxysmal. She vehemently denies history hypertension Denies: Congestive Heart Failure, Coronary Artery Disease, Myocardial Infarction, Hyperlipidema Pulmonary Medical History: Denies: Asthma, Chronic Obstructive Pulmonary Disease (COPD) Neurological Medical History: Reports: Other - Ocular CVA Denies: Seizures Endocrine Medical History: Reports: Obesity Denies: Diabetes Mellitus Type 2, Hypothyroidism Renal/ Medical History: Reports: None GI Medical History: Denies: Cirrhosis, Crohn's Disease, Hepatitis, Ulcerative Colitis Musculoskeltal Medical History: Denies: Arthritis, Fibromyalgia, Gout Skin Medical History: Denies: Eczema, Psoriasis Psychiatric Medical History: Denies: Depression Hematology: Denies: Anemia, Bleeding Tendencies Past Surgical History Past Surgical History: Reports: Appendectomy, Cholecystectomy, Hysterectomy - partial Social History Information Source: Patient Lives with: Family Smoking Status: Former Smoker Electronic Cigarette use?: No Frequency of Alcohol Use: None Drugs: None Hx Prescription Drug Abuse: No - Advance Directive Resuscitation Status: Do Not Resuscitate Surrogate healthcare decision maker:: The patient's daughter and sister, Michela Avila, Family History Family History: CAD, Hypertension. denies: DM, Malignancy, Thyroid Disfunction Parental Family History Reviewed: Yes Children Family History Reviewed: Yes Sibling(s) Family History Reviewed.: Yes Medication/Allergy Home Medications: Aspirin [Adult Low Dose Aspirin EC] 81 mg PO QHS 10/31/19 Metoprolol Succinate [Toprol Xl 50 mg Tab.sr] 50 mg PO QHS 10/31/19 Allergies/Adverse Reactions: codeine Adverse Reaction (Mild, Verified 10/31/19 08:10) GI upset Review of Systems Constitutional: PRESENT: fatigue, weakness. ABSENT: chills, fever(s), headache(s), weight gain, weight loss Eyes: ABSENT: visual disturbances Ears: ABSENT: hearing changes Cardiovascular: PRESENT: dyspnea on exertion. ABSENT: chest pain, edema, orthropnea, palpitations Respiratory: ABSENT: cough, hemoptysis Gastrointestinal: PRESENT: heartburn, melena. ABSENT: abdominal pain, constipation, diarrhea, hematemesis, hematochezia, nausea, vomiting Genitourinary: ABSENT: dysuria, hematuria Musculoskeletal: ABSENT: joint swelling Integumentary: ABSENT: rash, wounds Neurological: PRESENT: weakness. ABSENT: abnormal gait, abnormal speech, confusion, dizziness, focal weakness, syncope Psychiatric: ABSENT: anxiety, depression, homidical ideation, suicidal ideation Endocrine: ABSENT: cold intolerance, heat intolerance, polydipsia, polyuria Hematologic/Lymphatic: ABSENT: easy bleeding, easy bruising Current Medications Acetaminophen (Tylenol 325 Mg Tablet) 650 mg PO Q4HP PRN PRN Reason: FOR PAIN OR TEMP Stop: 11/30/19 14:11 Last Admin: 11/02/19 19:21 Dose: 650 mg Documented by: Al Hydrox/Mg Hydrox/Simethicone (Maalox Plus Susp 30 Udcup) 30 ml PO Q6HP PRN PRN Reason: HEARTBURN Stop: 11/30/19 14:11 Albuterol (Ventolin 0.083% Neb 2.5 Mg/3 Ml Ampul) 2.5 mg NEB Q4HP PRN PRN Reason: FOR SHORTNESS OF BREATH Stop: 12/02/19 12:53 Atorvastatin Calcium (Lipitor 20 Mg Tablet) 20 mg PO QHS MIKE Stop: 12/03/19 21:59 Docusate Sodium (Colace 100 Mg Capsule) 100 mg PO BID MIKE Stop: 12/03/19 09:59 Last Admin: 11/03/19 09:09 Dose: 100 mg Documented by: Furosemide (Lasix Inj/Pf 20 Mg/2 Ml Sdv) 10 mg IV Q12 MIKE Stop: 12/01/19 21:59 Last Admin: 11/03/19 09:06 Dose: 10 mg Documented by: Metoprolol Succinate (Toprol Xl 50 Mg Tab.Sr) 25 mg PO BID [facility] Stop: 12/02/19 09:59 Last Admin: 11/03/19 09:07 Dose: 25 mg Documented by: Metoprolol Tartrate (Lopressor Inj/Pf 5 Mg/5 Ml Sdv) 2.5 mg IV Q6HP PRN PRN Reason: FOR HR>130 Stop: 12/01/19 11:21 Last Admin: 11/02/19 08:25 Dose: 2.5 mg Documented by: Ondansetron HCl (Zofran Inj/Pf 4 Mg/2 Ml Sdv) 4 mg IV Q6HP PRN PRN Reason: FOR NAUSEA/VOMITING Stop: 11/30/19 14:11 Pantoprazole Sodium (Protonix [address] Tablet) 40 mg PO BID@0600,1700 [facility] Stop: 12/01/19 16:59 Last Admin: 11/03/19 09:07 Dose: 40 mg Documented by: Promethazine HCl (Phenergan Inj 25 Mg/1 Ml Vial) 6.25 mg IV Q4HP PRN PRN Reason: UNRESOLVED NAUSEA/VOMITING Stop: 11/30/19 14:11 Discontinued Medications Albuterol (Ventolin 0.083% Neb 2.5 Mg/3 Ml Ampul) 2.5 mg NEB RTQ6HP PRN PRN Reason: SHORTNESS OF BREATH Stop: 11/30/19 14:11 Docusate Sodium (Colace 100 Mg Capsule) 100 mg PO NOW ONE Stop: 11/02/19 21:01 Last Admin: 11/02/19 21:21 Dose: 100 mg Documented by: Furosemide (Lasix Inj/Pf 20 Mg/2 Ml Sdv) 10 mg IV NOW ONE Stop: 11/01/19 16:16 Last Admin: 11/01/19 16:08 Dose: Not Given Documented by: Furosemide (Lasix Inj/Pf 20 Mg/2 Ml Sdv) Confirm Administered Dose 20 mg .ROUTE .STK-MED ONE Stop: 11/01/19 15:58 Last Admin: 11/01/19 16:03 Dose: 10 mg Documented by: Lactated Ringer's (Lactated Ringers 1000 Ml Iv Soln) 500 mls @ 0 mls/hr IV BOLUS ONE Stop: 10/31/19 11:00 Last Admin: 10/31/19 11:44 Dose: Not Given Documented by: Sodium Chloride (Nacl 0.9% 250 Ml Iv Soln) 250 mls @ 30 mls/hr IV .DURING TRA NSFUSION PRN PRN Reason: THIS MED IS NOT "PRN" Stop: 11/01/19 11:00 Sodium Chloride (Nacl 0.9% 250 Ml Iv Soln) 250 mls @ 0 mls/hr IV CONTINUOUS PRN PRN Reason: AFTER EACH UNIT Stop: 11/01/19 11:00 Last Infusion: 10/31/19 17:27 Dose: Infused Documented by: Lactated Ringer's (Lactated Ringers 1000 Ml Iv Soln) 250 mls @ 0 mls/hr IV BOLUS ONE Stop: 10/31/19 11:12 Last Infusion: 10/31/19 12:15 Dose: Infused Documented by: Sodium Chloride (Nacl 0.9% 1000 Ml Iv Soln) 1,000 mls @ 125 mls/hr IV CONTINUOUS PRN PRN Reason: THIS MED IS NOT "PRN" Stop: 11/30/19 14:09 Last Admin: 11/01/19 13:02 Dose: 125 mls/hr Documented by: Levalbuterol HCl (Xopenex Neb 0.63 Mg/3 Ml Ampul) 0.63 mg NEB RTQ4 [facility] Stop: 12/01/19 15:59 Last Admin: 11/02/19 08:31 Dose: Not Given Documented by: Metoprolol Succinate (Toprol Xl 50 Mg Tab.Sr) 50 mg PO QHS [facility] Stop: 11/30/19 21:59 Last Admin: 10/31/19 22:07 Dose: Not Given Documented by: Metoprolol Succinate (Toprol Xl 50 Mg Tab.Sr) 50 mg PO DAILY [facility] Stop: 12/02/19 09:59 Metoprolol Succinate (Toprol Xl 50 Mg Tab.Sr) 25 mg PO DAILY [facility] Stop: 12/02/19 09:59 Metoprolol Succinate (Toprol Xl 25 Mg Tab.Sr) Confirm Administered Dose 25 mg PO .STK-MED ONE Stop: 11/01/19 16:02 Last Admin: 11/01/19 16:13 Dose: Not Given Documented by: Metoprolol Tartrate (Lopressor Inj/Pf 5 Mg/5 Ml Sdv) Confirm Administered Dose 5 mg IV .STK-MED ONE Stop: 11/01/19 10:52 Last Admin: 11/01/19 10:55 Dose: 2.5 mg Documented by: Metoprolol Tartrate (Lopressor 25 Mg Tablet) 25 mg PO NOW ONE Stop: 11/01/19 16:16 Last Admin: 11/01/19 16:09 Dose: 25 mg Documented by: Pantoprazole Sodium (Protonix Iv Inj 40 Mg Vial) 40 mg IV Q12 MIKE Stop: 11/03/19 21:59 Last Admin: 11/01/19 11:26 Dose: 40 mg Documented by: PHYSICAL EXAMINATION: The patient is well-built and well-nourished at present in no acute distress. She is sitting up in the chair with no complaints. Selected Entries 11/03/19 16:08 Temperature 97.9 F Temperature Oral Source Pulse Rate 64 Respiratory 18 Rate Blood Pressure 126/78 H Blood Pressure 94 Mean BP Location Left Arm BP Position Supine O2 Sat by Pulse 100 Oximetry Oxygen Delivery Room Air Method HEAD: Atraumatic, normocephalic. EYES: Pupils equal round and reactive to light, extraocular movements intact, sclera anicteric, conjunctiva are normal. ENT: TMs normal, nares patent, oropharynx clear without exudates. Moist mucous membranes. NECK: Normal range of motion, supple without lymphadenopathy or JVD. Carotids are equal there is no bruits. There is no thyromegaly. There is no accessory muscles of respiration in use. Trachea central LUNGS: Breath sounds clear to auscultation bilaterally and equal. No wheezes rales or rhonchi. On palpation there is no chest wall tenderness. HEART: S1-S2 is heard. S1 is of normal intensity. There is no S3 gallop. There is no S4 gallop. There is systolic murmur left sternal border and apex without radiation. There is no rub.. ABDOMEN: Soft, nontender, normoactive bowel sounds. There is no hepatosplenic megaly no guarding, no rebound. No masses appreciated. EXTREMITIES: Normal range of motion, no pitting or edema. No clubbing or cyanosis. Femorals are well felt. There is no femoral bruits. Leg pulses are well felt. There is no DVT or cellulitis. There is no calf tenderness NEUROLOGICAL: Cranial nerves II through XII grossly intact. Normal speech, normal gait. The patient is awake alert oriented x3 with no focal deficits. PSYCH: Normal mood, normal affect. The patient judgment and insight are intact SKIN: Warm, Dry, normal turgor, no rashes or lesions noted. There is no petechia or ecchymosis.\\ Labs- Entire Visit 10/31/19 10/31/19 10/31/19 08:20 08:20 08:20 WBC 12.7 H RBC 2.77 L Hgb 8.4 L Hct 25.0 L MCV 90 MCH 30.2 MCHC 33.4 RDW 14.2 H Plt Count 256 Lymph % (Auto) 12.1 L [place] % (Auto) 4.2 Eos % (Auto) 0.5 Baso % (Auto) 0.6 Absolute Neuts (auto) 10.5 H Absolute Lymphs (auto) 1.5 Absolute Monos (auto) 0.5 Absolute Eos (auto) 0.1 Absolute Basos (auto) 0.1 Seg Neutrophils % 82.6 H Sodium 139.2 Potassium 4.2 Chloride 108 H Carbon Dioxide 22 Anion Gap 9 BUN 49 H Creatinine 0.53 Est GFR ( Amer) > 60 Est GFR (MDRD) Non-Af > 60 Glucose 104 Calcium 8.9 Magnesium Total Bilirubin 0.4 Direct Bilirubin 0.2 Neonat Total Bilirubin Not Reportable Neonat Direct Bilirubin Not Reportable Neonat Indirect Bili Not Reportable AST 26 ALT 32 Alkaline Phosphatase 52 Creatine Kinase 20 L CK-MB (CK-2) 0.85 Troponin I 0.043 NT-Pro-B Natriuret Pep Total Protein 5.6 L Albumin 3.2 L Urine Color Urine Appearance Urine pH Ur Specific [place] Urine Protein Urine Glucose (UA) Urine Ketones Urine Blood Urine Nitrite Urine Bilirubin Urine Urobilinogen Ur Leukocyte Esterase Urine WBC (Auto) U Hyaline Cast (Auto) Urine Bacteria (Auto) Squamous Epi Cells Auto Urine Mucus (Auto) Urine Ascorbic Acid Blood Type Blood Type Confirm Antibody Screen Crossmatch 10/31/19 10/31/19 10/31/19 08:20 10:25 11:25 WBC RBC Hgb Hct MCV MCH MCHC RDW Plt Count Lymph % (Auto) [place] % (Auto) Eos % (Auto) Baso % (Auto) Absolute Neuts (auto) Absolute Lymphs (auto) Absolute Monos (auto) Absolute Eos (auto) Absolute Basos (auto) Seg Neutrophils % Sodium Potassium Chloride Carbon Dioxide Anion Gap BUN Creatinine Est GFR ( Amer) Est GFR (MDRD) Non-Af Glucose Calcium Magnesium 2.1 Total Bilirubin Direct Bilirubin Neonat Total Bilirubin Neonat Direct Bilirubin Neonat Indirect Bili AST ALT Alkaline Phosphatase Creatine Kinase CK-MB (CK-2) Troponin I NT-Pro-B Natriuret Pep Total Protein Albumin Urine Color YELLOW Urine Appearance CLEAR Urine pH 5.0 Ur Specific [place] 1.019 Urine Protein NEGATIVE Urine Glucose (UA) NEGATIVE Urine Ketones NEGATIVE Urine Blood MODERATE H Urine Nitrite NEGATIVE Urine Bilirubin NEGATIVE Urine Urobilinogen NEGATIVE Ur Leukocyte Esterase NEGATIVE Urine WBC (Auto) 2 U Hyaline Cast (Auto) 4 Urine Bacteria (Auto) TRACE Squamous Epi Cells Auto 1 Urine Mucus (Auto) OCC Urine Ascorbic Acid NEGATIVE Blood Type A POSITIVE Blood Type Confirm Antibody Screen NEGATIVE Crossmatch See Detail 10/31/19 10/31/19 10/31/19 11:31 12:29 21:34 WBC 11.6 H RBC 2.90 L Hgb 8.9 L Hct 26.1 L MCV 90 MCH 30.6 MCHC 34.1 RDW 14.1 H Plt Count 205 Lymph % (Auto) 20.9 [place] % (Auto) 7.4 Eos % (Auto) 0.8 Baso % (Auto) 0.5 Absolute Neuts (auto) 8.2 Absolute Lymphs (auto) 2.4 Absolute Monos (auto) 0.9 Absolute Eos (auto) 0.1 Absolute Basos (auto) 0.1 Seg Neutrophils % 70.4 Sodium Potassium Chloride Carbon Dioxide Anion Gap BUN Creatinine Est GFR ( Amer) Est GFR (MDRD) Non-Af Glucose Calcium Magnesium Total Bilirubin Direct Bilirubin Neonat Total Bilirubin Neonat Direct Bilirubin Neonat Indirect Bili AST ALT Alkaline Phosphatase Creatine Kinase CK-MB (CK-2) Troponin I 0.045 NT-Pro-B Natriuret Pep 1170 H Total Protein Albumin Urine Color Urine Appearance Urine pH Ur Specific [place] Urine Protein Urine Glucose (UA) Urine Ketones Urine Blood Urine Nitrite Urine Bilirubin Urine Urobilinogen Ur Leukocyte Esterase Urine WBC (Auto) U Hyaline Cast (Auto) Urine Bacteria (Auto) Squamous Epi Cells Auto Urine Mucus (Auto) Urine Ascorbic Acid Blood Type Blood Type Confirm A POSITIVE Antibody Screen Crossmatch 11/01/19 11/01/19 11/01/19 03:42 03:42 12:33 WBC 9.1 RBC 2.60 L Hgb 8.1 L Hct 23.4 L MCV 90 MCH 31.0 MCHC 34.6 RDW 14.2 H Plt Count 180 Lymph % (Auto) [place] % (Auto) Eos % (Auto) Baso % (Auto) Absolute Neuts (auto) Absolute Lymphs (auto) Absolute Monos (auto) Absolute Eos (auto) Absolute Basos (auto) Seg Neutrophils % Sodium 140.4 Potassium 3.8 Chloride 112 H Carbon Dioxide 23 Anion Gap 5 BUN 18 D Creatinine 0.51 L Est GFR ( Amer) > 60 Est GFR (MDRD) Non-Af > 60 Glucose 76 Calcium 8.3 L Magnesium Total Bilirubin Direct Bilirubin Neonat Total Bilirubin Neonat Direct Bilirubin Neonat Indirect Bili AST ALT Alkaline Phosphatase Creatine Kinase CK-MB (CK-2) Troponin I 0.053 NT-Pro-B Natriuret Pep Total Protein Albumin Urine Color Urine Appearance Urine pH Ur Specific [place] Urine Protein Urine Glucose (UA) Urine Ketones Urine Blood Urine Nitrite Urine Bilirubin Urine Urobilinogen Ur Leukocyte Esterase Urine WBC (Auto) U Hyaline Cast (Auto) Urine Bacteria (Auto) Squamous Epi Cells Auto Urine Mucus (Auto) Urine Ascorbic Acid Blood Type Blood Type Confirm Antibody Screen Crossmatch 11/02/19 11/02/19 05:04 05:04 WBC 7.9 RBC 2.62 L Hgb 8.1 L Hct 23.9 L MCV 91 MCH 30.9 MCHC 33.8 RDW 14.6 H Plt Count 196 Lymph % (Auto) 26.4 [place] % (Auto) 8.6 Eos % (Auto) 2.8 Baso % (Auto) 0.8 Absolute Neuts (auto) 4.8 Absolute Lymphs (auto) 2.1 Absolute Monos (auto) 0.7 Absolute Eos (auto) 0.2 Absolute Basos (auto) 0.1 Seg Neutrophils % 61.4 Sodium 139.8 Potassium 3.7 Chloride 110 H Carbon Dioxide 25 Anion Gap 5 BUN 10 Creatinine 0.48 L Est GFR ( Amer) > 60 Est GFR (MDRD) Non-Af > 60 Glucose 89 Calcium 8.8 Magnesium Total Bilirubin Direct Bilirubin Neonat Total Bilirubin Neonat Direct Bilirubin Neonat Indirect Bili AST ALT Alkaline Phosphatase Creatine Kinase CK-MB (CK-2) Troponin I NT-Pro-B Natriuret Pep Total Protein Albumin Urine Color Urine Appearance Urine pH Ur Specific [place] Urine Protein Urine Glucose (UA) Urine Ketones Urine Blood Urine Nitrite Urine Bilirubin Urine Urobilinogen Ur Leukocyte Esterase Urine WBC (Auto) U Hyaline Cast (Auto) Urine Bacteria (Auto) Squamous Epi Cells Auto Urine Mucus (Auto) Urine Ascorbic Acid Blood Type Blood Type Confirm Antibody Screen Crossmatch EKG #1: SINUS RHYTHM MULTIPLE ATRIAL PREMATURE COMPLEXES LVH WITH SECONDARY REPOLARIZATION ABNORMALITY EKG #2: ATRIAL FIBRILLATION WITH RAPID V-RATE REPOLARIZATION ABNORMALITY, PROB RATE RELATED Yesterday and today the patient's rhythm is sinus rhythm noted on the monitor. IMPRESSION/recommendation: 1. Paroxysmal atrial fibrillation. Continue Toprol-XL 25 mg p.o. twice daily and aspirin. Note that the patient's hemoglobin dropped with Xarelto with Hemoccult positive stools. Hence patient should have a GI work-up prior to further determining whether the patient should be put back on oral anticoagulation agent. The patient's corrected Baron vas 2 score is at least 5. 2. Prior history of ophthalmic CVA. 3. Patient denies any any history of hypertension. 4. Jaw pain intermittent: Patient has multiple CAD risk factors namely age, hyperlipidemia and family history of coronary artery disease. Hence would recommend the patient have IV Lexiscan Cardiolite stress test. This can be done as an outpatient. Patient would like to talk to her primary waterworks supervisor and her primary care provider prior to subjecting to this. 5. Hyperlipidemia: Patient is very resistant to take statins. 6. Shortness of breath most likely due to combination of anemia, diastolic dysfunction, and atrial fibrillation with rapid rate response. Note that the patient BNP is elevated, but will be cautious and maybe place the patient on Lasix 20 mg on alternate days. 7. GI bleed: Patient not cooperative about obtaining GI consult or GI work-up. I have discussed the various procedures of starting the patient on sotalol if there is a recurrence of atrial fibrillation if the patient should convert back into a sinus rhythm from A. fib. Proarrhythmias of sotalol discussed. Also other procedures such as atrial fibrillation focus ablation, in view of the patient's age she may be a high risk candidate for this] and undergoing a watchman procedure, since patient has GI bleed with anticoagulation. Also the need for GI work-up stressed with the patient. Medications reviewed I agree with the current medications. Medical regimen and medical management discussed medical decision making is of moderate complexity. Discussed the case with the current attending provider in the hospital. Will sign off. Patient will decide whether she wants to follow-up with her waterworks supervisor I would like to change him me.
[2019-11-03] MEDS ORDERED: ATORVASTATIN CALCIUM 20 MG TABLET PO SCH (22:00)
[2019-11-04] MEDS: ACETAMINOPHEN 325 MG TABLET PO PRN ×2 (04:13→12:55)
[2019-11-04] MEDS: PANTOPRAZOLE SODIUM 40 MG TABLET.DR PO SCH ×2 (05:26→17:05)
[2019-11-04 05:29] LABS: ABSOLUTE BASOPHILS # (AUTO) 0.1 10^3/uL (0.0-0.2); ABSOLUTE EOSINOPHILS # (AUTO) 0.2 10^3/uL (0.0-0.6); ABSOLUTE MONOCYTES (AUTO) 0.6 10^3/uL (0.1-1.4); BASOPHILS % (AUTO) 0.8 % (0-2); EOSINOPHILS % (AUTO) 2.7 % (0-6); HEMATOCRIT 23.4 % (36.0-47.0); LYMPHOCYTES % (AUTO) 29.1 % (13-45); MEAN CORPUSCULAR HEMOGLOBIN 31.4 pg (27.0-33.4); MEAN CORPUSCULAR HGB CONC 33.8 g/dL (32.0-36.0); MEAN CORPUSCULAR VOLUME 93 fl (80-97); PLATELET COUNT 210 10^3/uL (150-450); RED BLOOD COUNT 2.52 10^6/uL (3.72-5.28); RED CELL DISTRIBUTION WIDTH 15.2 % (11.5-14.0); SEGMENTED NEUTROPHILS % (AUTO) 58.4 % (42-78); TOTAL CELLS COUNTED % (AUTO) 100 %; WHITE BLOOD COUNT 6.8 10^3/uL (4.0-10.5)
[2019-11-04 05:33] LABS: HEMOGLOBIN 7.9 g/dL (12.0-15.5)
[2019-11-04 05:50] LABS: ANION GAP 7 (5-19); BLOOD UREA NITROGEN 13 mg/dL (7-20); CARBON DIOXIDE 28 mmol/L (22-30); CHLORIDE 104 mmol/L (98-107); GLUCOSE 83 mg/dL (75-110); POTASSIUM 3.9 mmol/L (3.6-5.0)
[2019-11-04] MEDS: DOCUSATE SODIUM 100 MG CAPSULE PO SCH ×2 (09:07→17:05)
[2019-11-04] MEDS: FERROUS SULFATE 325 MG TABLET PO SCH (09:09)
[2019-11-04] MEDS: METOPROLOL SUCCINATE 50 MG TAB.SR.24H PO SCH (09:09)
[2019-11-04] MEDS: FUROSEMIDE INJ/PF 20 MG/2 ML SDV IV SCH ×2 (09:10→21:33)
[2019-11-04] MEDS ORDERED: SUMATRIPTAN SUCCINATE 100 MG TABLET PO ONE (10:30)
[2019-11-04 15:48] LABS: APPEARANCE,URINE CLEAR; BILIRUBIN,URINE NEGATIVE (NEGATIVE); COLOR,URINE STRAW; GLUCOSE, URINE NEGATIVE (NEGATIVE); KETONES,URINE NEGATIVE (NEGATIVE); LEUKOCYTE ESTERASE,URINE MODERATE (NEGATIVE); NITRITE,URINE NEGATIVE (NEGATIVE); PROTEIN,URINE NEGATIVE (NEGATIVE); URINE SPECIFIC GRAVITY 1.003; UROBILINOGEN,URINE NEGATIVE mg/dL (<2.0)
--- NOTE | 2019-11-04 16:32 | RADIOLOGY REPORT (SQ) ---
EXAM DESCRIPTION: CT HEAD WITHOUT COMPLETED DATE/TIME: 11/04/2019 4:07 pm REASON FOR STUDY: Left Temporal Hemianopsia COMPARISON: 10/18/2019. TECHNIQUE: Axial images acquired through the brain without intravenous contrast. Images reviewed wi th bone, brain and subdural windows. Additional sagittal and coronal reconstructions were generated. Images stored on PACS. All CT scanners at this facility use dose modulation, iterative reconstruction, and/or weight based d osing when appropriate to reduce radiation dose to as low as reasonably achievable (ALARA). [facility]: Dose Right [facility]: CareDose [facility]: Dose Right [facility]: Teradose 4D [facility]: [employer] RADIATION DOSE: CT Rad equipment meets quality standard of care and radiation dose reduction techniq ues were employed. CTDIvol: 53.2 mGy. DLP: 1124 mGy-cm. mGy. LIMITATIONS: None. FINDINGS: VENTRICLES: Normal size and contour. CEREBRUM: No masses. No hemorrhage. No midline shift. Subtle decreased attenuation in the medial r ight occipital lobe. Normal alberto/white matter differentiation. No areas of low density in the white m atter. CEREBELLUM: No masses. No hemorrhage. No alteration of density. No evidence for acute infarction. EXTRAAXIAL SPACES: No fluid collections. No masses. ORBITS AND GLOBE: No intra- or extraconal masses. Normal contour of globe without masses. CALVARIUM: No fracture. PARANASAL SINUSES: No fluid or mucosal thickening. SOFT TISSUES: No mass or hematoma. OTHER: No other significant finding. IMPRESSION: SUBTLE DECREASED ATTENUATION IN THE MEDIAL RIGHT OCCIPITAL LOBE SUSPICIOUS FOR ACUTE INF ARCT. EVIDENCE OF ACUTE STROKE: YES. 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 COMMENT: Pertinent findings on the imaging study reported as a CRITICAL RESULT to 4N nursing staff at16:26 on 11/04/2019. Category of Critical Result: Acute cerebral infarct. Quality ID # 436: Final reports with documentation of one or more dose reduction techniques (e.g., Au tomated exposure control, adjustment of the mA and/or kV according to patient size, use of iterative reconstruction technique) TECHNICAL DOCUMENTATION: JOB ID: [id number] [employer]- All Rights Reserved Reading location - IP/workstation name: [email or web address]
[2019-11-04] MEDS ORDERED: ASPIRIN 81 MG TABLET, CHEWABLE PO SCH (17:15)
--- NOTE | 2019-11-04 17:16 | EKG REPORT ---
SEVERITY:- ABNORMAL ECG - SINUS RHYTHM ATRIAL PREMATURE COMPLEX LVH WITH SECONDARY REPOLARIZATION ABNORMALITY : Confirmed by: Magdalena Chandler MD 04-Nov-2019 17:15:04
--- NOTE | 2019-11-04 17:23 | PDOC PROGRESS REPORT ---
Subjective Progress Note for:: 11/04/19 Subjective:: MADIE ROLLINS is a 74 year old female with a past medical history of atrial fibrillation, ocular stroke, hypertension, and obesity who presented to the emergency department today with a complaint of generalized weakness and shortness of breath. She was seen at her PCP yesterday with her complaint of shortness of breath; chest x-ray and flu were negative at that time. She cannot she reports that they did not do any blood work at that time. Evaluation in the emergency department revealed hypotension with a blood pressure of 82/52, tachypnea and hypoxia on room air. She was found to have leukocytosis (WBCs 12.7) and hemoglobin of 8.4 (down from 13.4 two weeks ago), Unremarkable chemistry, indeterminate but stable troponin, and proBNP elevated to 1170. Negative urinalysis but positive occult stool. Patient was provided IV fluids and 1 unit PRBC. She is referred to the hospitalist service for admission and management of the above-stated complaints and findings. 11/01/2019. No acute events overnight. Patient comfortably sitting up in apparent distress, stating that for the last 1 month she has been feeling short of breath and nobody has figured out why, she still have something till having some melena but not has had any hematochezia, hemoptysis or hematemesis, patient denying any chest pain, nausea, vomiting, diarrhea, constipation or any urinary symptoms. 11/02/2019. Overnight patient was in A. fib RVR and is still complaining mild dyspnea on exertion. Denies any chest pain, nausea, vomiting, diarrhea, constipation or any urinary symptoms. 11/03/2019. No acute events overnight. Still complaining of mild shortness of breath otherwise denies any fever, chills, nausea, vomiting, diarrhea, constipation or any urinary symptoms. Could potentially be discharged today however patient stating that she would like to be discharged tomorrow as she does not feel like she is ready yet because she still having some mild dyspnea exertion. 11/04/2019. This morning patient was complaining of headache and worsening left- sided vision changes, a repeat CT scan of the head showed possible acute infarct, otherwise vitals are stable, patient is alert and oriented x4, no new focal neurological deficits. Denies any fever, chills, nausea, vomiting, diarrhea, constipation or any urinary symptoms. P.o. tolerant, ambulatory, having normal bowel and bladder movements. Reason For Visit: ABLA, GI BLEED Physical Exam Vital Signs: Temp Pulse Resp BP Pulse Ox 97.9 F 65 16 129/56 H 98 11/04/19 10:53 11/04/19 14:00 11/04/19 12:46 11/04/19 10:53 11/04/19 12:46 Intake & Output 11/03/19 11/04/19 11/05/19 06:59 06:59 06:59 Intake Total 900 Balance 900 Weight 59.7 kg 59.7 kg General appearance: PRESENT: no acute distress, well-developed, well-nourished Head exam: PRESENT: atraumatic, normocephalic Eye exam: PRESENT: conjunctiva pink, EOMI, PERRLA. ABSENT: scleral icterus Respiratory exam: PRESENT: clear to auscultation bianca. ABSENT: rales, rhonchi, wheezes Cardiovascular exam: PRESENT: RRR. ABSENT: diastolic murmur, rubs, systolic murmur GI/Abdominal exam: PRESENT: normal bowel sounds, soft. ABSENT: distended, guarding, mass, organolmegaly, rebound, tenderness Neurological exam: PRESENT: alert, awake, oriented to person, oriented to place, oriented to time, oriented to situation, CN II-XII grossly intact - Left temporal hemianopsia. ABSENT: motor sensory deficit Results Laboratory Results: 11/04/19 04:55 11/04/19 04:55 11/04/19 11/04/19 11/04/19 04:55 04:55 15:36 WBC 6.8 RBC 2.52 L Hgb 7.9 L Hct 23.4 L MCV 93 MCH 31.4 MCHC 33.8 RDW 15.2 H Plt Count 210 Seg Neutrophils % 58.4 Sodium 139.1 Potassium 3.9 Chloride 104 Carbon Dioxide 28 Anion Gap 7 BUN 13 Creatinine 0.56 Est GFR ( Amer) > 60 Glucose 83 Calcium 9.0 Urine Color STRAW Urine Appearance CLEAR Urine pH 7.0 Ur Specific [place] 1.003 Urine Protein NEGATIVE Urine Glucose (UA) NEGATIVE Urine Ketones NEGATIVE Urine Blood NEGATIVE Urine Nitrite NEGATIVE Ur Leukocyte Esterase MODERATE H Urine WBC (Auto) 10 Urine RBC (Auto) 1 10/31/19 10/31/19 10/31/19 08:20 08:20 12:29 Creatine Kinase 20 L CK-MB (CK-2) 0.85 Troponin I 0.043 0.045 NT-Pro-B Natriuret Pep 1170 H 11/01/19 12:33 Creatine Kinase CK-MB (CK-2) Troponin I 0.053 NT-Pro-B Natriuret Pep Impressions: Head CT 11/04/19 00:00 IMPRESSION: SUBTLE DECREASED ATTENUATION IN THE MEDIAL RIGHT OCCIPITAL LOBE SUSPICIOUS FOR ACUTE INFARCT. EVIDENCE OF ACUTE STROKE: YES. RIGHT MED ASST. Assessment and Plan - Diagnosis (1) Acute ischemic stroke Is this a current diagnosis for this admission?: Yes Plan: Right MED ASST. Patient complaining of worsening left temporal hemianopsia. CT head positive for possible right MED ASST small stroke. Patient had a recent nonhemorrhagic stroke in the same area not sure if this is new or the same stroke. We will get MRI for further clarification. Unfortunately patient has not been anticoagulated due to GI bleed possibly caused by inistiation of Xarelto patient has been newly diagnosed intermittent A. fib. Last dose of Xarelto was 10/31/2019, patient has not had any melena however repeat CBC shows decrease and hemoglobin. GI initially consulted but they signed off as patient hemoglobin was stable. Not sure if this GI bleed was actually caused by Xarelto or there could be another cause of GI bleed. So far patient has been adamantly against any upper or lower GI endoscopy stating that her friends had had complications and she would not undergo any upper or lower GI procedures. Had an extensive discussion with patient about importance of being anticoagulated to prevent any future stroke and is absolutely necessary to find out if her GI bleed was caused by something other than Xarelto. Patient has kindly agreed to undergo upper and lower GI endoscopy and I have consulted Dr. Lobo who has kindly agreed to do an upper GI endoscopy tomorrow morning. Transfer patient to [facility], continue antiplatelets, high intensity statins. If H&H stable will start on low molecular weight heparin. We will reconsult Dr. Chandler about resumption of chronic anticoagulation, or possible watchman implantation. (2) Acute on chronic diastolic (congestive) heart failure Is this a current diagnosis for this admission?: Yes Plan: Significant improvement. Dyspnea on exertion has resolved. Patient ambulatory and SPO2 WNL on RA. Likely due to history of A. fib RVR. Denies any history of CAD. Was complaining of mild dyspnea on exertion for several months. proBNP 1170. Review of records obtained from [facility] shows hyperdynamic heart with ejection fraction of 70% and grade 2 diastolic dysfunction. Continue cautious diuresis guided by volume status, continue metoprolol. (3) Acute GI bleeding Is this a current diagnosis for this admission?: Yes Plan: Patient hemoglobin dropped from 8.1-7.9 today. Denies any melena. Status post 1 PRBC transfusion on admission. Most likely due to anticoagulation for history of A. fib RVR. Patient denies any history of GI malignancy. Apparently patient was diagnosed with A. fib in 2018 and last month was restarted on anticoagulation by her corporate safety manager. Patient wants to stop her anticoagulation. Monitor H&H. DC anticoagulation. Hold antiplatelets. Consult gastroenterology for possible upper or lower GI endoscopy. (4) Acute systolic heart failure Is this a current diagnosis for this admission?: Yes Plan: As per #2. (5) History of CVA (cerebrovascular accident) Is this a current diagnosis for this admission?: Yes Plan: History of CVA and occipital region on 09/2019. No residual deficits. Patient was hospitalized here at [facility] CT head was negative and patient was transferred to [facility]. Review of record obtained from [facility] shows nonhemorrhagic infarction in the posterior circulation. Based on lipid panel on 09/23/2018 her ASCVD risk score is only 21.7%. We will start on high intensity statin. Follow-up with PCP for monitoring LFTs. (6) Hyperlipidemia Is this a current diagnosis for this admission?: Yes Plan: ASCVD risk score of 21.7%. High intensity statins. Follow-up with PCP for LFT monitoring. (7) Atrial fibrillation Qualifiers: Atrial fibrillation type: paroxysmal Qualified Code(s): I48.0 - Paroxysmal atrial fibrillation Is this a current diagnosis for this admission?: Yes Plan: Rate controlled. Repeat EKG sinus rhythm. Was anticoagulated. Patient wants to DC her anticoagulation due to recent GI bleed. Patient was extensively counseled about risk and benefit of continuing anticoagulation. Continue metoprolol p.o. PRN IV metoprolol. (8) Elevated troponin I level Is this a current diagnosis for this admission?: Yes Plan: Likely due to A. fib RVR complicated by underlying acute CHF. Cannot rule out ACS. Patient appears euvolemic. Lung examination benign. Still complaining of dyspnea on exertion and occasional left jaw pain. With mild elevation in troponins. Patient never had LHC or stress test. Given persistently mild elevation in troponins and high risk for CAD, will consult cardiology for further recommendation. Meawhile will continue treating underlying acute CHF and atrial fibrillation. (9) HTN (hypertension) Qualifiers: Is this a current diagnosis for this admission?: Yes Plan: Normotensive. Continue home meds. Adjust meds as needed.
--- NOTE | 2019-11-04 18:07 | RADIOLOGY REPORT (SQ) ---
EXAM DESCRIPTION: MRI HEAD WITHOUT COMPLETED DATE/TIME: 11/04/2019 5:55 pm REASON FOR STUDY: Acute Occiptal Stroke COMPARISON: CT dated 11/04/2019. TECHNIQUE: Multiplanar imaging includes non-contrasted T1, T2, FLAIR, and diffusion with ADC map seq uences. Images stored on PACS. LIMITATIONS: None. FINDINGS: ANATOMY: No anomalies. Normal vascular flow voids. Pituitary fossa normal. CSF SPACES: Normal in size and contour. No hemorrhage. CEREBRUM: Sulci and gyri normal in size and contour. Increased FLAIR and T2 signal in the medial rig ht occipital lobe. No evidence of hemorrhage, mass, or extraaxial fluid collection. POSTERIOR FOSSA: No signal alteration. No hemorrhage. No edema, masses or mass effect. Internal lelo tory canals, cerebello-pontine angles, mastoids normal. DIFFUSION IMAGING: Abnormal signal consistent with restricted diffusion in the medial right occipital lobe. ORBITS: No masses. Globes normal. PARANASAL SINUSES: No fluid levels. Mucosa normal. OTHER: No other significant finding. IMPRESSION: RECENT ACUTE INFARCT IN THE MEDIAL RIGHT OCCIPITAL LOBE. EVIDENCE OF ACUTE STROKE: YES. 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
--- NOTE | 2019-11-04 18:10 | RADIOLOGY REPORT (SQ) ---
EXAM DESCRIPTION: MRA HEAD WITHOUT COMPLETED DATE/TIME: 11/04/2019 5:55 pm REASON FOR STUDY: ACUTE OCCIPITAL STROKE COMPARISON: None. TECHNIQUE: Axial 3-D euvx-cc-nocfoz acquisition imaging performed through the brain in the area of t he [place] of [place]. Images reformatted using 3-D MIPS. LIMITATIONS: None. FINDINGS: SOURCE IMAGES: No unexpected findings on source images. No large masses. 3-D MIP: No aneurysm. There is occlusion of the right posterior cerebral artery approximately 1 to 2 cm distal to the [place]. The other major cerebral arteries are patent. OTHER: No other significant finding. IMPRESSION: OCCLUSION OF THE RIGHT POSTERIOR CEREBRAL ARTERY. TECHNICAL DOCUMENTATION: JOB ID: [id number] [employer]- All Rights Reserved Reading location - IP/workstation name: [email or web address]
--- NOTE | 2019-11-04 19:38 | PDOC CONSULTATION ---
Consultation Consult Date: 11/04/19 Attending physician:: IVETH HORAN Provider Consulted: KARORICKI ALEXISEDGARD Consult reason:: Gastrointestinal bleed History of Present Illness Admission Date/PCP: 10/31/19 15:16 ZORA SÁNCHEZ PA-C History of Present Illness: MADIE ROLLINS is a 74 year old female Admitted to the hospital 4 days ago for weakness, rapid ventricular response secondary to atrial fibrillation and hypotension. Patient was stabilized with fluids, and rate control with Cardizem. She was seen by Dr. Farmer, fish packer who evaluated patient, determined her ejection fraction was well preserved, and that she was likely not in congestive heart failure although she did have 1 dose of Lasix for elevated BNP. Her shortness of breath was felt to be due to an emia, diastolic dysfunction. The patient has a history of atrial fibrillation from September 2018. Managed with a beta-john. On October 18 she was seen at [facility] with left visual field loss, was transferred to [facility] where she was diagnosed with a right posterior occipital stroke and was started on Xarelto;this was on October 22. Subsequently patient developed dark tarry stools and was seen again at [facility] with the above history. Patient's hemoglobin dropped from 13-8 and she received 1 unit of packed cells. Her Xarelto was held on 10/31/2019, and starting yesterday into today she felt that her left visual field defect was expanding. Today CT scan of the brain and MRI scan suggest extension of acute ischemic stroke. Patient was seen Dr. Ferrer, surgical list, 4 days ago for melanotic stool which have since resolved. Patient at that time adamantly refused colonoscopy due to fear of complications her friends have apparently sustained, so no endoscopy was performed. I was consulted by Dr. Turpin this evening who requested upper and lower endoscopy. Patient denies any gastrointestinal symptoms other than the alteration in her stool. Last colonoscopy 26 years ago in [facility], reportedly normal. She has no history of peptic ulcer disease. Furthermore she has no constitutional symptoms other than a intentional 30 pound weight loss due to diet modification. Tonight she is adamant about not undergoing endoscopic procedures to determine possible etiology of her GI bleed. Past Medical History Cardiac Medical History: Reports: Atrial Fibrillation, Hypertension Denies: Congestive Heart Failure, Coronary Artery Disease, DVT, Myocardial Infarction, Hyperlipidema, Pulmonary Embolism Pulmonary Medical History: Denies: Asthma, Chronic Obstructive Pulmonary Disease (COPD) Neurological Medical History: Reports: Migraine - occular, Other - Ocular CVA Denies: Seizures Endocrine Medical History: Reports: Obesity Denies: Diabetes Mellitus Type 1, Diabetes Mellitus Type 2, Hyperthyroidism, Hypothyroidism Renal/ Medical History: Reports: None GI Medical History: Denies: Cirrhosis, Crohn's Disease, Hepatitis, Ulcerative Colitis Musculoskeltal Medical History: Denies: Arthritis, Fibromyalgia, Gout Skin Medical History: Denies: Eczema, Psoriasis Psychiatric Medical History: Denies: Depression Hematology: Denies: Anemia, Bleeding Tendencies Past Surgical History Past Surgical History: Reports: Appendectomy, Cholecystectomy, Hysterectomy - partial Social History Lives with: Family Smoking Status: Former Smoker Electronic Cigarette use?: No Frequency of Alcohol Use: None Hx Recreational Drug Use: No Drugs: None Hx Prescription Drug Abuse: No - Advance Directive Resuscitation Status: Do Not Resuscitate Family History Family History: None, CAD, Hypertension. denies: DM, Malignancy, Thyroid Disfunction Parental Family History Reviewed: Yes Children Family History Reviewed: Yes Sibling(s) Family History Reviewed.: Yes Medication/Allergy Home Medications: Aspirin [Adult Low Dose Aspirin EC] 81 mg PO QHS 10/31/19 Furosemide [Lasix 20 mg Tablet] 20 mg PO Q48H 60 Days #30 tablet 11/03/19 Metoprolol Succinate [Toprol Xl 25 mg Tab.sr] 25 mg PO BID 30 Days #60 tab.sr.24h 11/03/19 Rosuvastatin Calcium [Crestor 10 mg Tablet] 10 mg PO QHS 30 Days #30 tablet 11/03/19 Allergies/Adverse Reactions: codeine Adverse Reaction (Mild, Verified 10/31/19 08:10) GI upset Review of Systems Constitutional: PRESENT: as per HPI Eyes: PRESENT: as per HPI Ears: ABSENT: hearing changes Cardiovascular: ABSENT: chest pain, dyspnea on exertion, edema, orthropnea, palpitations Respiratory: ABSENT: cough, hemoptysis Gastrointestinal: PRESENT: as per HPI Genitourinary: ABSENT: dysuria, hematuria Musculoskeletal: ABSENT: joint swelling Psychiatric: ABSENT: anxiety, depression, homidical ideation, suicidal ideation Endocrine: ABSENT: cold intolerance, heat intolerance, polydipsia, polyuria Physical Exam Vital Signs: Temp Pulse Resp BP Pulse Ox 98.1 F 66 17 134/68 H 100 11/04/19 14:45 11/04/19 14:45 11/04/19 14:45 11/04/19 14:45 11/04/19 14:45 Intake & Output 11/03/19 11/04/19 11/05/19 06:59 06:59 06:59 Intake Total 900 720 Balance 900 720 Weight 59.7 kg 59.7 kg General appearance: PRESENT: no acute distress Head exam: PRESENT: normocephalic Eye exam: PRESENT: EOMI Mouth exam: PRESENT: moist Neck exam: PRESENT: full ROM Respiratory exam: PRESENT: clear to auscultation bianca Cardiovascular exam: PRESENT: other - Rate controlled Pulses: PRESENT: normal carotid pulses, normal radial pulses, normal femoral p ulses GI/Abdominal exam: PRESENT: diminished bowel sounds Rectal exam: PRESENT: deferred Extremities exam: PRESENT: full ROM Musculoskeletal exam: PRESENT: full ROM Neurological exam: PRESENT: oriented to person, oriented to place, oriented to time, oriented to situation Psychiatric exam: PRESENT: appropriate affect Results Laboratory Results: 11/04/19 04:55 11/04/19 04:55 11/04/19 11/04/19 11/04/19 04:55 04:55 15:36 WBC 6.8 RBC 2.52 L Hgb 7.9 L Hct 23.4 L MCV 93 MCH 31.4 MCHC 33.8 RDW 15.2 H Plt Count 210 Seg Neutrophils % 58.4 Sodium 139.1 Potassium 3.9 Chloride 104 Carbon Dioxide 28 Anion Gap 7 BUN 13 Creatinine 0.56 Est GFR ( Amer) > 60 Glucose 83 Calcium 9.0 Urine Color STRAW Urine Appearance CLEAR Urine pH 7.0 Ur Specific [place] 1.003 Urine Protein NEGATIVE Urine Glucose (UA) NEGATIVE Urine Ketones NEGATIVE Urine Blood NEGATIVE Urine Nitrite NEGATIVE Ur Leukocyte Esterase MODERATE H Urine WBC (Auto) 10 Urine RBC (Auto) 1 10/31/19 10/31/19 10/31/19 08:20 08:20 12:29 Creatine Kinase 20 L CK-MB (CK-2) 0.85 Troponin I 0.043 0.045 NT-Pro-B Natriuret Pep 1170 H 11/01/19 12:33 Creatine Kinase CK-MB (CK-2) Troponin I 0.053 NT-Pro-B Natriuret Pep Impressions: Brain MRI with MRA 11/04/19 00:00 IMPRESSION: OCCLUSION OF THE RIGHT POSTERIOR CEREBRAL ARTERY. Head CT 11/04/19 00:00 IMPRESSION: SUBTLE DECREASED ATTENUATION IN THE MEDIAL RIGHT OCCIPITAL LOBE SUSPICIOUS FOR ACUTE INFARCT. EVIDENCE OF ACUTE STROKE: YES. 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 Head MRI 11/04/19 00:00 IMPRESSION: RECENT ACUTE INFARCT IN THE MEDIAL RIGHT OCCIPITAL LOBE. EVIDENCE OF ACUTE STROKE: YES. RIGHT SURVEY SUPERINTENDENT Assessment & Plan - Diagnosis (1) Acute GI bleeding Is this a current diagnosis for this admission?: Yes Plan: Impression: 74-year-old A. fib with RVR, now controlled, recent stroke 20 days ago with a left visual field deficit, started on Xarelto, developed acute GI bleed with drop in hemoglobin 5 g, Xarelto held and now having extension of stroke with expanding left visual field defect according to patient and confirmed by CT and MRI. Melanotic stools abated. Patient fearful of undergoing endoscopic evaluation. Very challenging situation: This is an intelligent, was neurologically intact 74-year-old female who is highly functional, requires rate and rhythm control for atrial fibrillation, and anticoagulation for her recent and evolving ischemic cerebral vascular events., Currently she is having GI bleeding. Recommendations: 1. I would suggest not performing a semi-emergent intervention such as endoscopy,which will require LMAC anesthesia, until patient's neurologic symptoms have stabilized. Patient is in agreement. 2. I did not push the patient to have the upper or lower endoscopy because of her fear of potential complications. Furthermore, in the absence of constitutional symptoms, or any specific GI symptoms other than the melena, the likelihood of finding a mechanical source for her bleeding is low. Lastly if in fact a mechanical source is found, we would need to know how aggressively the patient would wish to have this addressed. 3. All of the above is based on one conversation with this pleasant 74-year-old at 7:00 pm in the evening, November 04. The above synopsis is based on 1 surgeons opinion, and certainly revisiting the discussion is warranted. We will continue to follow patient closely. (2) Acute blood loss anemia Is this a current diagnosis for this admission?: Yes (3) Acute ischemic stroke Is this a current diagnosis for this admission?: Yes (4) Acute on chronic diastolic (congestive) heart failure Is this a current diagnosis for this admission?: Yes (5) On rivaroxaban therapy Is this a current diagnosis for this admission?: Yes (6) HTN (hypertension) Qualifiers: Is this a current diagnosis for this admission?: Yes - Time Time Spent: 50 to 70 Minutes Smoking Cessation Education: over 10 minutes Medications reviewed and adjusted accordingly: Yes Anticipated discharge: Home - Inpatient Certification Based on my medical assessment, after consideration of the patient's comorbidities, presenting symptoms, or acuity I expect that the services needed warrant INPATIENT care.: Yes I certify that my determination is in accordance with my understanding of Medicare's requirements for reasonable and necessary INPATIENT services [42 CFR 412.3e].: Yes Medical Necessity: Need For IV Fluids
[2019-11-04] MEDS: METOPROLOL SUCCINATE 25 MG TAB.SR.24H PO SCH (21:33)
[2019-11-04] MEDS: ATORVASTATIN CALCIUM 80 MG TABLET PO SCH (21:33)
[2019-11-04] MEDS ORDERED: ATORVASTATIN CALCIUM 20 MG TABLET PO SCH (22:00)
[2019-11-04] MEDS ORDERED: ASPIRIN 81 MG TABLET, ENT COATED PO SCH (22:00)
[2019-11-05] MEDS: PANTOPRAZOLE SODIUM 40 MG TABLET.DR PO SCH ×2 (05:25→16:44)
[2019-11-05 06:11] LABS: HEMATOCRIT 26.1 % (36.0-47.0); HEMOGLOBIN 8.7 g/dL (12.0-15.5); MEAN CORPUSCULAR HEMOGLOBIN 30.5 pg (27.0-33.4); MEAN CORPUSCULAR HGB CONC 33.5 g/dL (32.0-36.0); MEAN CORPUSCULAR VOLUME 91 fl (80-97); PLATELET COUNT 253 10^3/uL (150-450); RED BLOOD COUNT 2.86 10^6/uL (3.72-5.28); WHITE BLOOD COUNT 7.2 10^3/uL (4.0-10.5)
[2019-11-05 06:25] LABS: CHOLESTEROL 145.98 mg/dL (0-200); TRIGLYCERIDES 69 mg/dL (<150)
[2019-11-05 06:27] LABS: ANION GAP 5 (5-19); BLOOD UREA NITROGEN 8 mg/dL (7-20); CALCIUM 9.5 mg/dL (8.4-10.2); CARBON DIOXIDE 32 mmol/L (22-30); CHLORIDE 103 mmol/L (98-107); GLUCOSE 82 mg/dL (75-110)
[2019-11-05] MEDS ORDERED: SUMATRIPTAN SUCCINATE 50 MG TABLET PO ONE (06:30)
[2019-11-05 06:35] LABS: DIRECT LDL 99 mg/dL (<100)
[2019-11-05 06:48] LABS: ABSOLUTE LYMPHOCYTES# (MANUAL) 1.1 10^3/uL (0.5-4.7); ABSOLUTE MONOCYTES # (MANUAL) 0.3 10^3/uL (0.1-1.4); ANISOCYTOSIS SLIGHT; BASOPHILS % (MANUAL) 2 % (0-2); EOSINOPHILS % (MANUAL) 4 % (0-6); LYMPHOCYTES % (MANUAL) 15 % (13-45); MONOCYTES % (MANUAL) 4 % (3-13); PLATELET COMMENT ADEQUATE; POLYCHROMASIA SLIGHT; SEGMENTED NEUTROPHILS % (MAN) 75 % (42-78); TOTAL CELLS COUNTED 100
[2019-11-05] MEDS ORDERED: SUMATRIPTAN SUCCINATE 100 MG TABLET PO ONE ×2 (07:00→09:00)
[2019-11-05] MEDS: DOCUSATE SODIUM 100 MG CAPSULE PO SCH ×2 (09:37→17:33)
[2019-11-05] MEDS: FERROUS SULFATE 325 MG TABLET PO SCH (09:55)
[2019-11-05] MEDS: METOPROLOL SUCCINATE 25 MG TAB.SR.24H PO SCH (09:55)
[2019-11-05] MEDS: FUROSEMIDE INJ/PF 20 MG/2 ML SDV IV SCH (09:55)
--- NOTE | 2019-11-05 13:11 | PDOC PROGRESS REPORT ---
Subjective Progress Note for:: 11/05/19 Subjective:: MADIE ROLLINS is a 74 year old female with a past medical history of atrial fibrillation, ocular stroke, hypertension, and obesity who presented to the emergency department today with a complaint of generalized weakness and shortness of breath. She was seen at her PCP yesterday with her complaint of shortness of breath; chest x-ray and flu were negative at that time. She cannot she reports that they did not do any blood work at that time. Evaluation in the emergency department revealed hypotension with a blood pressure of 82/52, tachypnea and hypoxia on room air. She was found to have leukocytosis (WBCs 12.7) and hemoglobin of 8.4 (down from 13.4 two weeks ago), Unremarkable chemistry, indeterminate but stable troponin, and proBNP elevated to 1170. Negative urinalysis but positive occult stool. Patient was provided IV fluids and 1 unit PRBC. She is referred to the hospitalist service for admission and management of the above-stated complaints and findings. 11/01/2019. No acute events overnight. Patient comfortably sitting up in apparent distress, stating that for the last 1 month she has been feeling short of breath and nobody has figured out why, she still have something till having some melena but not has had any hematochezia, hemoptysis or hematemesis, patient denying any chest pain, nausea, vomiting, diarrhea, constipation or any urinary symptoms. 11/02/2019. Overnight patient was in A. fib RVR and is still complaining mild dyspnea on exertion. Denies any chest pain, nausea, vomiting, diarrhea, constipation or any urinary symptoms. 11/03/2019. No acute events overnight. Still complaining of mild shortness of breath otherwise denies any fever, chills, nausea, vomiting, diarrhea, constipation or any urinary symptoms. Could potentially be discharged today however patient stating that she would like to be discharged tomorrow as she does not feel like she is ready yet because she still having some mild dyspnea exertion. 11/04/2019. This morning patient was complaining of headache and worsening left- sided vision changes, a repeat CT scan of the head showed possible acute infarct, otherwise vitals are stable, patient is alert and oriented x4, no new focal neurological deficits. Denies any fever, chills, nausea, vomiting, diarrhea, constipation or any urinary symptoms. P.o. tolerant, ambulatory, having normal bowel and bladder movements. 11/05/2019. No acute events overnight. Patients visual symptoms are back to baseline, denies any new focal neurological symptoms, patient is alert and oriented x4, was scheduled to undergo upper and lower GI endoscopy to r/o any mechanical causes of her GI bleeding however as per surgical team it is not indicated at this point (please refer to note) and also patient again is adamantly refusing to undergo upper or lower GI endoscopy. Patient was transferred to [facility] due to new onset nonhemorrhagic acute stroke on 11/04/2019 but she is insisting to be transferred back to fourth floor stating that she does not feel comfortable in the third-floor she does mention that she is very happy with the care that she is getting in third. Unfortunately patient could not be transferred to fourth floor as per hospital policy because she had an acute stroke. Nursing supervisor mold yard has had a conversation with the patient and she has agreed to stay in the third floor for now. Reason For Visit: ABLA, GI BLEED Physical Exam Vital Signs: Temp Pulse Resp BP Pulse Ox 98.3 F 71 16 110/46 L 100 11/05/19 09:01 11/05/19 09:01 11/05/19 09:01 11/05/19 09:01 11/05/19 09:01 Intake & Output 11/04/19 11/05/19 11/06/19 06:59 06:59 06:59 Intake Total 900 1240 Balance 900 1240 Weight 59.7 kg 71.1 kg General appearance: PRESENT: no acute distress, well-developed, well-nourished Head exam: PRESENT: atraumatic, normocephalic Respiratory exam: PRESENT: clear to auscultation bianca. ABSENT: rales, rhonchi, wheezes Cardiovascular exam: PRESENT: RRR. ABSENT: diastolic murmur, rubs, systolic murmur GI/Abdominal exam: PRESENT: normal bowel sounds, soft. ABSENT: distended, guarding, mass, organolmegaly, rebound, tenderness Extremities exam: PRESENT: full ROM. ABSENT: calf tenderness, clubbing, pedal edema Neurological exam: PRESENT: alert, awake, oriented to person, oriented to place, oriented to time, oriented to situation, CN II-XII grossly intact - Left temporal hemianopsia.. ABSENT: motor sensory deficit Results Laboratory Results: 11/05/19 05:44 11/05/19 05:44 11/04/19 11/05/19 11/05/19 15:36 05:44 05:44 WBC 7.2 RBC 2.86 L Hgb 8.7 L Hct 26.1 L MCV 91 MCH 30.5 MCHC 33.5 RDW 15.0 H Plt Count 253 Seg Neutrophils % Not Reportable Sodium 140.4 Potassium 4.0 Chloride 103 Carbon Dioxide 32 H Anion Gap 5 BUN 8 Creatinine 0.55 Est GFR ( Amer) > 60 Glucose 82 Calcium 9.5 Triglycerides Cholesterol LDL Cholesterol Direct VLDL Cholesterol HDL Cholesterol Urine Color STRAW Urine Appearance CLEAR Urine pH 7.0 Ur Specific [place] 1.003 Urine Protein NEGATIVE Urine Glucose (UA) NEGATIVE Urine Ketones NEGATIVE Urine Blood NEGATIVE Urine Nitrite NEGATIVE Ur Leukocyte Esterase MODERATE H Urine WBC (Auto) 10 Urine RBC (Auto) 1 11/05/19 05:44 WBC RBC Hgb Hct MCV MCH MCHC RDW Plt Count Seg Neutrophils % Sodium Potassium Chloride Carbon Dioxide Anion Gap BUN Creatinine Est GFR ( Amer) Glucose Calcium Triglycerides 69 Cholesterol 145.98 LDL Cholesterol Direct 99 VLDL Cholesterol 14.0 HDL Cholesterol 43 Urine Color Urine Appearance Urine pH Ur Specific [place] Urine Protein Urine Glucose (UA) Urine Ketones Urine Blood Urine Nitrite Ur Leukocyte Esterase Urine WBC (Auto) Urine RBC (Auto) 10/31/19 10/31/19 10/31/19 08:20 08:20 12:29 Creatine Kinase 20 L CK-MB (CK-2) 0.85 Troponin I 0.043 0.045 NT-Pro-B Natriuret Pep 1170 H 11/01/19 12:33 Creatine Kinase CK-MB (CK-2) Troponin I 0.053 NT-Pro-B Natriuret Pep Impressions: Brain MRI with MRA 11/04/19 00:00 IMPRESSION: OCCLUSION OF THE RIGHT POSTERIOR CEREBRAL ARTERY. Head CT 11/04/19 00:00 IMPRESSION: SUBTLE DECREASED ATTENUATION IN THE MEDIAL RIGHT OCCIPITAL LOBE SUSPICIOUS FOR ACUTE INFARCT. EVIDENCE OF ACUTE STROKE: YES. 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 Head MRI 11/04/19 00:00 IMPRESSION: RECENT ACUTE INFARCT IN THE MEDIAL RIGHT OCCIPITAL LOBE. EVIDENCE OF ACUTE STROKE: YES. 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 Denies any new focal neurological symptoms. Left temporal hemianopsia back to baseline. On 11/04/2019 patient was complaining of worsening left temporal hemianopsia. CT head positive for possible right PULP PLANT SUPERVISOR small stroke. MRI positive for recent infarct in the medial right occipital lobe. Patient had a recent nonhemorrhagic stroke in the same area not sure if this is new or the same stroke. Unfortunately patient has not been anticoagulated due to GI bleed possibly caused by initiation of Xarelto for newly diagnosed intermittent A. fib. Last dose of Xarelto was 10/31/2019, patient has not had any melena however repeat CBC showed decrease in hemoglobin. GI initially consulted but they signed off as patient hemoglobin was stable and she was adamantly refusing undergo upper and lower GI endoscopy. So far patient has been adamantly against any upper or lower GI endoscopy stating that her friends had had complications and she would not undergo any upper or lower GI procedures. On 11/21/2019 after extensive discussion patient agreed to undergo upper and lower GI endoscopy and GI was reconsulted. As per GI evaluation, upper and low er GI endoscopy not acute at this point (please refer to note) Patient is again adamantly against undergoing any upper or lower GI endoscopy at this time. Patient is back at baseline. Still having persistent left temporal hemianopsia which was present prior to admission. Patient is alert and oriented x4, negative for any focal neurological deficits, ambulatory, p.o. tolerant and having normal bowel and bladder movements. Continue telemetry, continue neurochecks, antiplatelets, high intensity statins, DVT prophylaxis. (2) Acute on chronic diastolic (congestive) heart failure Is this a current diagnosis for this admission?: Yes Plan: Significant improvement. Dyspnea on exertion has resolved. Patient ambulatory and SPO2 WNL on RA. Likely due to history of A. fib RVR. Denies any history of CAD. Was complaining of mild dyspnea on exertion for several months. proBNP 1170. Review of records obtained from [facility] shows hyperdynamic heart with ejection fraction of 70% and grade 2 diastolic dysfunction. Continue cautious diuresis guided by volume status, continue metoprolol. (3) Atrial fibrillation Qualifiers: Atrial fibrillation type: paroxysmal Qualified Code(s): I48.0 - Paroxysmal atrial fibrillation Is this a current diagnosis for this admission?: Yes Plan: Rate controlled. Repeat EKG sinus rhythm. Was anticoagulated. Patient wants to DC her anticoagulation due to recent GI bleed. Patient was extensively counseled about risk and benefit of continuing antico agulation. Patient does not want chronic anticoagulation at this point. Has been switched to sotalol by cardiology. Need to be monitored for next to 3 days. Cardiology following. Recommendations noted. (4) Acute GI bleeding Is this a current diagnosis for this admission?: Yes Plan: Stable. Denies any melena or hematochezia. Hemoglobin trending up. Status post 1 PRBC transfusion on admission. Most likely due to anticoagulation for history of A. fib RVR. Patient denies any history of GI malignancy. Apparently patient was diagnosed with A. fib in 2018 and last month was restarted on anticoagulation by her edge grinder. Monitor H&H. DC anticoagulation. Patient refusing anticoagulation at this point. Gastroenterology consulted. No upper or lower GI endoscopy planned at this point. Please refer to gastroenterology note. (5) Acute systolic heart failure Is this a current diagnosis for this admission?: Yes Plan: As per #2. (6) History of CVA (cerebrovascular accident) Is this a current diagnosis for this admission?: Yes Plan: History of CVA and occipital region on 09/2019. No residual deficits. Patient was hospitalized here at [facility] head was negative and patient was transferred to [facility]. Review of record obtained from [facility] shows nonhemorrhagic infarction in the posterior circulation. Based on lipid panel on 09/23/2018 her ASCVD risk score is only 21.7%. We will start on high intensity statin. Follow-up with PCP for monitoring LFTs. (7) Hyperlipidemia Is this a current diagnosis for this admission?: Yes Plan: ASCVD risk score of 21.7%. High intensity statins. Follow-up with PCP for LFT monitoring. (8) Elevated troponin I level Is this a current diagnosis for this admission?: Yes Plan: Likely due to A. fib RVR complicated by underlying acute CHF. Cannot rule out ACS. Patient appears euvolemic. Lung examination benign. Still complaining of dyspnea on exertion and occasional left jaw pain. With mild elevation in troponins. Patient never had LHC or stress test. Given persistently mild elevation in troponins and high risk for CAD, will consult cardiology for further recommendation. Meawhile will continue treating underlying acute CHF and atrial fibrillation. (9) HTN (hypertension) Qualifiers: Is this a current diagnosis for this admission?: Yes Plan: Normotensive. Euvolemic. Continue home meds. Adjust meds as needed.
[2019-11-05] MEDS: HEPARIN SOD (PORCINE) 5,000 UNIT/ML 1 ML VIAL SUBCUT SCH ×2 (14:18→22:02)
[2019-11-05] MEDS: ACETAMINOPHEN 325 MG TABLET PO PRN ×2 (14:31→23:24)
--- NOTE | 2019-11-05 19:11 | PDOC PROGRESS REPORT ---
Subjective Progress Note for:: 11/05/19 Subjective:: This is a 74-year-old female with GI bleeding after starting Xarelto. The patient also has had an acute stroke within the last few days. The patient currently denies any headache, chest pain, shortness of breath, fevers, chills, nausea, vomiting. She does report recent melanotic stool, however this has improved significantly over the last 24 hours. The patient reports that she is not interested in pursuing endoscopy (upper or lower) at this time. Reason For Visit: ABLA, GI BLEED Physical Exam Vital Signs: Temp Pulse Resp BP Pulse Ox 98.3 F 60 16 110/46 L 100 11/05/19 09:01 11/05/19 12:00 11/05/19 12:00 11/05/19 09:01 11/05/19 12:00 Intake & Output 11/04/19 11/05/19 11/06/19 06:59 06:59 06:59 Intake Total 900 1240 240 Output Total 0 Balance 900 1240 240 Weight 59.7 kg 71.1 kg General appearance: PRESENT: obese, other - Elderly Head exam: PRESENT: atraumatic, normocephalic Eye exam: PRESENT: EOMI. ABSENT: scleral icterus Mouth exam: PRESENT: moist, neck supple Neck exam: ABSENT: meningismus, tenderness, thyromegaly, tracheal deviation Respiratory exam: PRESENT: unlabored. ABSENT: tachypnea, wheezes Cardiovascular exam: PRESENT: irregular rhythm Vascular exam: ABSENT: pallor GI/Abdominal exam: PRESENT: soft. ABSENT: distended, firm, guarding, rebound, tenderness Rectal exam: PRESENT: deferred Extremities exam: ABSENT: clubbing Musculoskeletal exam: ABSENT: deformity Neurological exam: PRESENT: alert, awake, oriented to person, oriented to place, oriented to time, oriented to situation Psychiatric exam: ABSENT: agitated, anxious, depressed Focused psych exam: ABSENT: delusional Skin exam: ABSENT: cyanosis, erythema, jaundice Results Laboratory Results: 11/05/19 05:44 11/05/19 05:44 11/04/19 11/05/19 11/05/19 15:36 05:44 05:44 WBC 7.2 RBC 2.86 L Hgb 8.7 L Hct 26.1 L MCV 91 MCH 30.5 MCHC 33.5 RDW 15.0 H Plt Count 253 Seg Neutrophils % Not Reportable Sodium 140.4 Potassium 4.0 Chloride 103 Carbon Dioxide 32 H Anion Gap 5 BUN 8 Creatinine 0.55 Est GFR ( Amer) > 60 Glucose 82 Calcium 9.5 Triglycerides Cholesterol LDL Cholesterol Direct VLDL Cholesterol HDL Cholesterol Urine Color STRAW Urine Appearance CLEAR Urine pH 7.0 Ur Specific [place] 1.003 Urine Protein NEGATIVE Urine Glucose (UA) NEGATIVE Urine Ketones NEGATIVE Urine Blood NEGATIVE Urine Nitrite NEGATIVE Ur Leukocyte Esterase MODERATE H Urine WBC (Auto) 10 Urine RBC (Auto) 1 11/05/19 05:44 WBC RBC Hgb Hct MCV MCH MCHC RDW Plt Count Seg Neutrophils % Sodium Potassium Chloride Carbon Dioxide Anion Gap BUN Creatinine Est GFR ( Amer) Glucose Calcium Triglycerides 69 Cholesterol 145.98 LDL Cholesterol Direct 99 VLDL Cholesterol 14.0 HDL Cholesterol 43 Urine Color Urine Appearance Urine pH Ur Specific [place] Urine Protein Urine Glucose (UA) Urine Ketones Urine Blood Urine Nitrite Ur Leukocyte Esterase Urine WBC (Auto) Urine RBC (Auto) 10/31/19 10/31/19 10/31/19 08:20 08:20 12:29 Creatine Kinase 20 L CK-MB (CK-2) 0.85 Troponin I 0.043 0.045 NT-Pro-B Natriuret Pep 1170 H 11/01/19 12:33 Creatine Kinase CK-MB (CK-2) Troponin I 0.053 NT-Pro-B Natriuret Pep Impressions: Brain MRI with MRA 11/04/19 00:00 IMPRESSION: OCCLUSION OF THE RIGHT POSTERIOR CEREBRAL ARTERY. Head CT 11/04/19 00:00 IMPRESSION: SUBTLE DECREASED ATTENUATION IN THE MEDIAL RIGHT OCCIPITAL LOBE SUSPICIOUS FOR ACUTE INFARCT. EVIDENCE OF ACUTE STROKE: YES. 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 Head MRI 11/04/19 00:00 IMPRESSION: RECENT ACUTE INFARCT IN THE MEDIAL RIGHT OCCIPITAL LOBE. EVIDENCE OF ACUTE STROKE: YES. 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 The patient has A. fib. She also has evidence of a recent ischemic stroke. Request has been made to investigate her GI bleeding via upper and lower endoscopy. This carries with it significant risk. I have discussed these risks with the patient. At this time the patient is not interested in pursuing upper or lower endoscopy. The patient appears to be of sound mind. I have discussed the case personally with Dr. Harper. Surgery will sign off at this time. Please renotify with any questions or concerns.
--- NOTE | 2019-11-05 19:30 | Progress Note ---
Provider Note Provider Note: CARDIOLOGY PROGRESS NOTE by Dr. Magdalena Chandler on 020. I had signed off the case, but in view of new developments I have I was asked by the hospitalist to see the patient again. OBJECTIVE: The patient developed another CVA yesterday. And MRI confirms this. The patient is not on any anticoagulation. She also needs a GI work-up. She was seen by Dr. Fabian zamarripa who deferred any endoscopy until 4 to 6 weeks after the patient's stroke. The patient also is not very keen on having a GI endoscopy. Note that the patient is corrected Baron vasc-2 score is at least 5. Hence we will stop the patient beta-john and place the patient on sotalol to keep the patient in sinus rhythm to prevent the patient going in and out of atrial fibrillation which would increase the patient's risk of recurrent strokes. I have discussed the watchman procedure with the patient. This can be done with a referral to reservation sales agent who does this as an outpatient. The patient denies any chest pain discomfort. There is no shortness of breath. Her vision is a little blurred. Especially on the left eye. PHYSICAL EXAMINATION: The patient mildly obese in no acute distress. Selected Entries 11/05/19 15:48 Temperature 98.4 F Temperature Oral Source Pulse Rate 62 Respiratory 16 Rate Blood Pressure 108/44 L Blood Pressure 65 Mean BP Location Right Arm BP Position Supine O2 Sat by Pulse 98 Oximetry Oxygen Delivery Room Air Method HEAD: Atraumatic, normocephalic. EYES: Pupils equal round and reactive to light, extraocular movements intact, sclera anicteric, conjunctiva are normal. ENT: TMs normal, nares patent, oropharynx clear without exudates. Moist mucous membranes. NECK: Normal range of motion, supple without lymphadenopathy or JVD. Carotids are equal there is no bruits. There is no thyromegaly. There is no accessory muscles of respiration in use. Trachea central LUNGS: Breath sounds clear to auscultation bilaterally and equal. No wheezes rales or rhonchi. On palpation there is no chest wall tenderness. HEART: S1-S2 is heard. S1 is of normal intensity. There is no S3 gallop. There is no S4 gallop. There is systolic murmur left sternal border and apex without radiation. There is no rub.. ABDOMEN: Soft, nontender, normoactive bowel sounds. There is no hepatosplenic megaly no guarding, no rebound. No masses appreciated. EXTREMITIES: Normal range of motion, no pitting or edema. No clubbing or cyanosis. Femorals are well felt. There is no femoral bruits. Leg pulses are well felt. There is no DVT or cellulitis. There is no calf tenderness NEUROLOGICAL: Cranial nerves II through XII grossly intact. Normal speech, normal gait. The patient is awake alert oriented x3 with no focal deficits. PSYCH: Normal mood, normal affect. The patient judgment and insight are intact SKIN: Warm, Dry, normal turgor, no rashes or lesions noted. There is no petechia or ecchymosis. Labs- All tests 24 hr 11/05/19 11/05/19 11/05/19 05:44 05:44 05:44 WBC 7.2 RBC 2.86 L Hgb 8.7 L Hct 26.1 L MCV 91 MCH 30.5 MCHC 33.5 RDW 15.0 H Plt Count 253 Lymph % (Auto) Not Reportable [place] % (Auto) Not Reportable Eos % (Auto) Not Reportable Baso % (Auto) Not Reportable Absolute Neuts (auto) Not Reportable Absolute Lymphs (auto) Not Reportable Absolute Monos (auto) Not Reportable Absolute Eos (auto) Not Reportable Absolute Basos (auto) Not Reportable Total Counted 100 Seg Neutrophils % Not Reportable Seg Neuts % (Manual) 75 Lymphocytes % (Manual) 15 Monocytes % (Manual) 4 Eosinophils % (Manual) 4 Basophils % (Manual) 2 Abs Neuts (Manual) 5.4 Abs Lymphs (Manual) 1.1 Abs Monocytes (Manual) 0.3 Absolute Eos (Manual) 0.3 Abs Basophils (Manual) 0.1 Platelet Comment ADEQUATE Polychromasia SLIGHT Anisocytosis SLIGHT Sodium 140.4 Potassium 4.0 Chloride 103 Carbon Dioxide 32 H Anion Gap 5 BUN 8 Creatinine 0.55 Est GFR ( Amer) > 60 Est GFR (MDRD) Non-Af > 60 Glucose 82 Calcium 9.5 Triglycerides 69 Cholesterol 145.98 LDL Cholesterol Direct 99 VLDL Cholesterol 14.0 HDL Cholesterol 43 Brain MRI with MRA 11/04/19 00:00 IMPRESSION: OCCLUSION OF THE RIGHT POSTERIOR CEREBRAL ARTERY. Head CT 11/04/19 00:00 IMPRESSION: SUBTLE DECREASED ATTENUATION IN THE MEDIAL RIGHT OCCIPITAL LOBE SUSPICIOUS FOR ACUTE INFARCT. EVIDENCE OF ACUTE STROKE: YES. 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 Head MRI 11/04/19 00:00 IMPRESSION: RECENT ACUTE INFARCT IN THE MEDIAL RIGHT OCCIPITAL LOBE. EVIDENCE OF ACUTE STROKE: YES. 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 LVH WITH SECONDARY REPOLARIZATION ABNORMALITY IMPRESSION/recommendation: 1. Paroxysmal atrial fibrillation. Continue Toprol-XL 25 mg p.o. twice daily and aspirin. Note that the patient's hemoglobin dropped with Xarelto with Hemoccult positive stools. Hence patient should have a GI work-up prior to further determining whether the patient should be put back on oral anticoagulation agent. The patient's corrected Baron vas 2 score is at least 5. 2. Prior history of ophthalmic CVA. 3. Patient denies any any history of hypertension. 4. Jaw pain intermittent: Patient has multiple CAD risk factors namely age, hyperlipidemia and family history of coronary artery disease. Hence would recommend the patient have IV Lexiscan Cardiolite stress test. This can be done as an outpatient. Patient would like to talk to her primary steel fitter and her primary care provider prior to subjecting to this. There is been no recurrence of jaw pain symptoms. 5. Hyperlipidemia: Patient is very resistant to take statins. 6. Shortness of breath most likely due to combination of anemia, diastolic dysfunction, and atrial fibrillation with rapid rate response. Note that the patient BNP is elevated, but will be cautious and maybe place the patient on Lasix 20 mg on alternate days. 7. GI bleed: Patient was seen by Dr. Lobo. But in view of the fresh CVA GI work-up has been postponed for later. Medications reviewed. As discussed earlier we will stop the patient's metoprolol, and switch to sotalol. We will start initiate 40 mg p.o. every 12 hours from tonight since the patient just received her a.m. dose of Lopressor. Will watch the patient for proarrhythmias on sotalol, and get daily EKGs for QTC estimation. Medical regimen and management plan discussed with Dr. Franklin, the hospitalist physician. Medical decision making is of high complexity. 40 minutes spent as patient more than 50% time spent direct patient care. Boaz jauregui.
[2019-11-05] MEDS: ATORVASTATIN CALCIUM 80 MG TABLET PO SCH (21:53)
[2019-11-05] MEDS: SOTALOL HCL 80 MG TABLET PO SCH (21:54)
[2019-11-06 04:44] LABS: HEMOGLOBIN 8.9 g/dL (12.0-15.5); MEAN CORPUSCULAR HEMOGLOBIN 31.2 pg (27.0-33.4); MEAN CORPUSCULAR HGB CONC 34.4 g/dL (32.0-36.0); MEAN CORPUSCULAR VOLUME 91 fl (80-97); PLATELET COUNT 243 10^3/uL (150-450); RED BLOOD COUNT 2.87 10^6/uL (3.72-5.28); RED CELL DISTRIBUTION WIDTH 14.9 % (11.5-14.0); WHITE BLOOD COUNT 10.1 10^3/uL (4.0-10.5)
[2019-11-06 04:47] LABS: ANION GAP 5 (5-19); BLOOD UREA NITROGEN 10 mg/dL (7-20); CALCIUM 9.2 mg/dL (8.4-10.2); CARBON DIOXIDE 31 mmol/L (22-30); CHLORIDE 102 mmol/L (98-107); GLUCOSE 84 mg/dL (75-110); POTASSIUM 3.9 mmol/L (3.6-5.0)
[2019-11-06] MEDS: HEPARIN SOD (PORCINE) 5,000 UNIT/ML 1 ML VIAL SUBCUT SCH ×3 (06:27→21:04)
[2019-11-06] MEDS: PANTOPRAZOLE SODIUM 40 MG TABLET.DR PO SCH ×2 (06:27→17:07)
[2019-11-06] MEDS: DOCUSATE SODIUM 100 MG CAPSULE PO SCH ×2 (09:23→17:07)
[2019-11-06] MEDS: SOTALOL HCL 80 MG TABLET PO SCH ×2 (09:23→21:01)
[2019-11-06] MEDS: FERROUS SULFATE 325 MG TABLET PO SCH (09:24)
[2019-11-06] MEDS: FUROSEMIDE 20 MG TABLET PO SCH (09:24)
--- NOTE | 2019-11-06 09:35 | PDOC PROGRESS REPORT ---
Subjective Progress Note for:: 11/06/19 Subjective:: MADIE ROLLINS is a 74 year old female with a past medical history of atrial fibrillation, ocular stroke, hypertension, and obesity who presented to the emergency department today with a complaint of generalized weakness and shortness of breath. She was seen at her PCP yesterday with her complaint of shortness of breath; chest x-ray and flu were negative at that time. She cannot she reports that they did not do any blood work at that time. Evaluation in the emergency department revealed hypotension with a blood pressure of 82/52, tachypnea and hypoxia on room air. She was found to have leukocytosis (WBCs 12.7) and hemoglobin of 8.4 (down from 13.4 two weeks ago), Unremarkable chemistry, indeterminate but stable troponin, and proBNP elevated to 1170. Negative urinalysis but positive occult stool. Patient was provided IV fluids and 1 unit PRBC. She is referred to the hospitalist service for admission and management of the above-stated complaints and findings. 11/01/2019. No acute events overnight. Patient comfortably sitting up in apparent distress, stating that for the last 1 month she has been feeling short of breath and nobody has figured out why, she still have something till having some melena but not has had any hematochezia, hemoptysis or hematemesis, patient denying any chest pain, nausea, vomiting, diarrhea, constipation or any urinary symptoms. 11/02/2019. Overnight patient was in A. fib RVR and is still complaining mild dyspnea on exertion. Denies any chest pain, nausea, vomiting, diarrhea, constipation or any urinary symptoms. 11/03/2019. No acute events overnight. Still complaining of mild shortness of breath otherwise denies any fever, chills, nausea, vomiting, diarrhea, constipation or any urinary symptoms. Could potentially be discharged today however patient stating that she would like to be discharged tomorrow as she does not feel like she is ready yet because she still having some mild dyspnea exertion. 11/04/2019. This morning patient was complaining of headache and worsening left- sided vision changes, a repeat CT scan of the head showed possible acute infarct, otherwise vitals are stable, patient is alert and oriented x4, no new focal neurological deficits. Denies any fever, chills, nausea, vomiting, diarrhea, constipation or any urinary symptoms. P.o. tolerant, ambulatory, having normal bowel and bladder movements. 11/05/2019. No acute events overnight. Patients visual symptoms are back to baseline, denies any new focal neurological symptoms, patient is alert and oriented x4, was scheduled to undergo upper and lower GI endoscopy to r/o any mechanical causes of her GI bleeding however as per surgical team it is not indicated at this point (please refer to note) and also patient again is adamantly refusing to undergo upper or lower GI endoscopy. Patient was transferred to [facility] due to new onset nonhemorrhagic acute stroke on 11/04/2019 but she is insisting to be transferred back to fourth floor stating that she does not feel comfortable in the third-floor she does mention that she is very happy with the care that she is getting in third. Unfortunately patient could not be transferred to fourth floor as per hospital policy because she had an acute stroke. Nursing steffen house supervisor has had a conversation with the patient and she has agreed to stay in the third floor for now. 11/06/2019. No acute events overnight. Patient had one melanotic bowel movement otherwise stating that she is feeling good, no new neurological deficits, ambulatory, p.o. tolerant, having normal bowel and bladder movements. Eyes any fever, chills, nausea, vomiting, diarrhea, constipation or any urinary symptoms. Reason For Visit: ABLA, GI BLEED Physical Exam Vital Signs: Temp Pulse Resp BP Pulse Ox 97.6 F 70 16 114/46 L 99 11/06/19 03:23 11/06/19 08:00 11/06/19 08:00 11/06/19 08:00 11/06/19 08:00 Intake & Output 11/05/19 11/06/19 11/07/19 06:59 06:59 06:59 Intake Total 1240 480 Output Total 0 Balance 1240 480 Weight 71.1 kg 67.8 kg General appearance: PRESENT: no acute distress, well-developed, well-nourished Head exam: PRESENT: atraumatic, normocephalic Respiratory exam: PRESENT: clear to auscultation bianca. ABSENT: rales, rhonchi, wheezes Cardiovascular exam: PRESENT: RRR. ABSENT: diastolic murmur, rubs, systolic murmur GI/Abdominal exam: PRESENT: normal bowel sounds, soft. ABSENT: distended, guarding, mass, organolmegaly, rebound, tenderness Extremities exam: PRESENT: full ROM. ABSENT: calf tenderness, clubbing, pedal edema Neurological exam: PRESENT: alert, awake, oriented to person, oriented to place, oriented to time, oriented to situation, CN II-XII grossly intact - Left temporal hemianopsia.. ABSENT: motor sensory deficit Results Laboratory Results: 11/06/19 04:05 11/06/19 04:05 11/06/19 11/06/19 04:05 04:05 WBC 10.1 RBC 2.87 L Hgb 8.9 L Hct 26.0 L MCV 91 MCH 31.2 MCHC 34.4 RDW 14.9 H Plt Count 243 Sodium 138.4 Potassium 3.9 Chloride 102 Carbon Dioxide 31 H Anion Gap 5 BUN 10 Creatinine 0.61 Est GFR ( Amer) > 60 Glucose 84 Calcium 9.2 10/31/19 10/31/19 10/31/19 08:20 08:20 12:29 Creatine Kinase 20 L CK-MB (CK-2) 0.85 Troponin I 0.043 0.045 NT-Pro-B Natriuret Pep 1170 H 11/01/19 12:33 Creatine Kinase CK-MB (CK-2) Troponin I 0.053 NT-Pro-B Natriuret Pep Impressions: Brain MRI with MRA 11/04/19 00:00 IMPRESSION: OCCLUSION OF THE RIGHT POSTERIOR CEREBRAL ARTERY. Head CT 11/04/19 00:00 IMPRESSION: SUBTLE DECREASED ATTENUATION IN THE MEDIAL RIGHT OCCIPITAL LOBE SUSPICIOUS FOR ACUTE INFARCT. EVIDENCE OF ACUTE STROKE: YES. 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 Head MRI 11/04/19 00:00 IMPRESSION: RECENT ACUTE INFARCT IN THE MEDIAL RIGHT OCCIPITAL LOBE. EVIDENCE OF ACUTE STROKE: YES. 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 Denies any new focal neurological symptoms. Left temporal hemianopsia back to baseline. On 11/04/2019 patient was complaining of worsening left temporal hemianopsia. CT head positive for possible right CERTIFIED WELDING INSPECTOR small stroke. MRI positive for recent infarct in the medial right occipital lobe. Patient had a recent nonhemorrhagic stroke in the same area not sure if this is new or the same stroke. Unfortunately patient has not been anticoagulated due to GI bleed possibly caused by initiation of Xarelto for newly diagnosed intermittent A. fib. Last dose of Xarelto was 10/31/2019, patient has not had any melena however repeat CBC showed decrease in hemoglobin. GI initially consulted but they signed off as patient hemoglobin was stable and she was adamantly refusing to undergo upper and lower GI endoscopy stating that her friends had had complications and she would not undergo any upper or lower GI procedures. On 11/21/2019 after extensive discussion patient agreed to undergo upper and lower GI endoscopy and GI was reconsulted. As per GI evaluation, upper and lower GI endoscopy not indicated at this point and recommending outpatient upper and lower GI endoscopy in 4 to 6 weeks (please refer to note). Patient is again adamantly against undergoing any upper or lower GI endoscopy at this time. Patient had another melanotic bowel movement on 11/06/2019 and would like to stop heparin DVT prophylaxis. Patient is back at baseline. Still having persistent left temporal hemianopsia which was present prior to admission. Patient is alert and oriented x4, negative for any focal neurological deficits, ambulatory, p.o. tolerant and having normal bowel and bladder movements. Continue telemetry, antiplatelets, high intensity statins, encourage ambulation with assistance. (2) Acute on chronic diastolic (congestive) heart failure Is this a current diagnosis for this admission?: Yes Plan: Well compensated. Significant improvement. Dyspnea on exertion has resolved. Patient ambulatory and SPO2 WNL on RA. Likely due to history of A. fib RVR. Denies any history of CAD. Was complaining of mild dyspnea on exertion for several months. proBNP 1170. Review of records obtained from [facility] shows hyperdynamic heart with ejection fraction of 70% and grade 2 diastolic dysfunction. Continue cautious diuresis guided by volume status, continue metoprolol. (3) Atrial fibrillation Qualifiers: Atrial fibrillation type: paroxysmal Qualified Code(s): I48.0 - Paroxysmal atrial fibrillation Is this a current diagnosis for this admission?: Yes Plan: Rate controlled. Repeat EKG sinus rhythm. Was anticoagulated. Patient wants to DC her anticoagulation due to recent GI bleed. Was a started on heparin DVT prophylaxis had one melanotic stool on 11/06/2019. Patient would like to DC heparin DVT prophylaxis too. Patient was extensively counseled about risk and benefit of continuing antic oagulation. Patient does not want chronic anticoagulation at this point. Has been switched to sotalol by cardiology. Need to be monitored for next to 3 days. Cardiology following. Recommendations noted. (4) Acute GI bleeding Is this a current diagnosis for this admission?: Yes Plan: Stable. Had one melanotic bowel movement on 11/06/2019. Hemoglobin trending up from 8.6-8.9. Status post 1 PRBC transfusion on admission. Most likely due to anticoagulation for history of A. fib RVR. Patient denies any history of GI malignancy. Apparently patient was diagnosed with A. fib in 2018 and last month was restarted on anticoagulation by her vice president payment. Monitor H&H. Patient refusing anticoagulation at this point. Gastroenterology consulted. No upper or lower GI endoscopy planned at this point. Please refer to gastroenterology note. (5) Acute systolic heart failure Is this a current diagnosis for this admission?: Yes Plan: As per #2. (6) History of CVA (cerebrovascular accident) Is this a current diagnosis for this admission?: Yes Plan: History of CVA recurrent right CERTIFIED WELDING INSPECTOR stroke on 09/2019 and 10/2019. Residual left temporal hemianopsia. Otherwise no focal neurological deficits. Patient was hospitalized here at [facility] CT head was negative and patient was transferred to [facility]. Review of record obtained from [facility] shows nonhemorrhagic infarction in the posterior circulation. Based on lipid panel on 09/23/2018 her ASCVD risk score is only 21.7%. Continue high intensity statins and antiplatelets. (7) Hyperlipidemia Is this a current diagnosis for this admission?: Yes Plan: ASCVD risk score of 21.7%. High intensity statins. Follow-up with PCP for LFT monitoring. (8) Elevated troponin I level Is this a current diagnosis for this admission?: Yes Plan: Likely due to A. fib RVR complicated by underlying acute CHF. Cannot rule out ACS. Patient appears euvolemic. Lung examination benign. Still complaining of dyspnea on exertion and occasional left jaw pain. With mild elevation in troponins. Patient never had LHC or stress test. Given persistently mild elevation in troponins and high risk for CAD, will consult cardiology for further recommendation. Meawhile will continue treating underlying acute CHF and atrial fibrillation. (9) HTN (hypertension) Qualifiers: Is this a current diagnosis for this admission?: Yes Plan: Normotensive. Euvolemic. Continue home meds. Adjust meds as needed.
[2019-11-06] MEDS: ACETAMINOPHEN 325 MG TABLET PO PRN ×2 (09:37→17:25)
--- NOTE | 2019-11-06 11:36 | EKG REPORT ---
SEVERITY:- ABNORMAL ECG - SINUS RHYTHM PROBABLE LVH WITH SECONDARY REPOL ABNRM : Confirmed by: Magdalena Chandler MD 06-Nov-2019 11:35:54
--- NOTE | 2019-11-06 19:42 | Progress Note ---
Provider Note Provider Note: CARDIOLOGY PROGRESS NOTE by Dr. Magdalena Chandler on 11/06/2019. SUBJECTIVE: Patient remains in sinus rhythm. QTc is acceptable. Her blood pressure is on the lower side. She did have a melanotic stool and wants that subcu DVT prophylaxis heparin dosage stopped. She has no abdominal pain. Hemoglobin factors come up a little. There is no recurrence of TIA or CVA. There is no proarrhythmia on sotalol. There is no dizziness near syncope or syncope. PHYSICAL EXAMINATION: The patient is mildly obese. In no acute distress. Selected Entries 11/06/19 11:55 Temperature 98.6 F Temperature Oral Source Pulse Rate 60 Respiratory 16 Rate Blood Pressure 103/52 L Blood Pressure 69 Mean BP Location Left Arm BP Position Supine O2 Sat by Pulse 100 Oximetry Oxygen Delivery Room Air Method HEAD: Atraumatic, normocephalic. EYES: Pupils equal round and reactive to light, extraocular movements intact, sclera anicteric, conjunctiva are normal. ENT: TMs normal, nares patent, oropharynx clear without exudates. Moist mucous membranes. NECK: Normal range of motion, supple without lymphadenopathy or JVD. Carotids are equal there is no bruits. There is no thyromegaly. There is no accessory muscles of respiration in use. Trachea central LUNGS: Breath sounds clear to auscultation bilaterally and equal. No wheezes rales or rhonchi. On palpation there is no chest wall tenderness. HEART: S1-S2 is heard. S1 is of normal intensity. There is no S3 gallop. There is no S4 gallop. There is systolic murmur left sternal border and apex without radiation. There is no rub.. ABDOMEN: Soft, nontender, normoactive bowel sounds. There is no hepatosplenic megaly no guarding, no rebound. No masses appreciated. EXTREMITIES: Normal range of motion, no pitting or edema. No clubbing or cyanosis. Femorals are well felt. There is no femoral bruits. Leg pulses are well felt. There is no DVT or cellulitis. There is no calf tenderness NEUROLOGICAL: Cranial nerves II through XII grossly intact. Normal speech, normal gait. The patient is awake alert oriented x3 with no focal deficits. PSYCH: Normal mood, normal affect. The patient judgment and insight are intact SKIN: Warm, Dry, normal turgor, no rashes or lesions noted. There is no petechia or ecchymosis. IMPRESSION/recommendation: EKG shows a sinus rhythm. No acute changes. LVH with secondary repolarization changes. QTc is acceptable at 426 Labs- All tests 24 hr 11/06/19 11/06/19 04:05 04:05 WBC 10.1 RBC 2.87 L Hgb 8.9 L Hct 26.0 L MCV 91 MCH 31.2 MCHC 34.4 RDW 14.9 H Plt Count 243 Sodium 138.4 Potassium 3.9 Chloride 102 Carbon Dioxide 31 H Anion Gap 5 BUN 10 Creatinine 0.61 Est GFR ( Amer) > 60 Est GFR (MDRD) Non-Af > 60 Glucose 84 Calcium 9.2 Brain MRI with MRA 11/04/19 00:00 IMPRESSION: OCCLUSION OF THE RIGHT POSTERIOR CEREBRAL ARTERY. Head CT 11/04/19 00:00 IMPRESSION: SUBTLE DECREASED ATTENUATION IN THE MEDIAL RIGHT OCCIPITAL LOBE SUSPICIOUS FOR ACUTE INFARCT. EVIDENCE OF ACUTE STROKE: YES. 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 Head MRI 11/04/19 00:00 IMPRESSION: RECENT ACUTE INFARCT IN THE MEDIAL RIGHT OCCIPITAL LOBE. EVIDENCE OF ACUTE STROKE: YES. RIGHT ROUGHER OPERATOR IMPRESSION/RECOMMENDATION: 1. Paroxysmal atrial fibrillation. We will continue the patient is sotalol, her Toprol-XL has been stopped. Note that the patient's hemoglobin dropped with Xarelto with Hemoccult positive stools. Today hemoglobin is come up slightly. In view of the patient recurrent CVA. She has not been able to have a GI work- up to identify the source of the GI bleed. Hence the patient is off anticoagulation. Hopefully she remains in sinus rhythm on sotalol. Later we will set up the patient for watchman procedure as an outpatient, if deemed to be a suitable candidate by the mustanger who does the procedure. 3. Patient denies any any history of hypertension. 4. Jaw pain intermittent: Patient has multiple CAD risk factors namely age, hyperlipidemia and family history of coronary artery disease. Hence would recommend the patient have IV Lexiscan Cardiolite stress test. This can be done as an outpatient. Patient would like to talk to her primary ship liner and her primary care provider prior to subjecting to this. There is been no recurrence of jaw pain symptoms. 5. Hyperlipidemia: Patient is very resistant to take statins. 6. Shortness of breath most likely due to combination of anemia, diastolic dysfunction, and atrial fibrillation with rapid rate response. Note that the patient BNP is elevated, but will be cautious and maybe place the patient on Lasix 20 mg on alternate days. 7. GI bleed: Patient was seen by Dr. Lobo. But in view of the fresh CVA GI work-up has been postponed for later. Medications reviewed. As discussed earlier we will stop the patient's metoprolol, and switch to sotalol. We will start initiate 40 mg p.o. every 12 hours from tonight since the patient just received her a.m. dose of Lopressor. Will watch the patient for proarrhythmias on sotalol, and get daily EKGs for QTC estimation. Medical regimen and management plan discussed with Dr. Franklin, the hospitalist physician. Medical decision making is of high complexity. 40 minutes spent as patient more than 50% time spent direct patient care. Will follow.
[2019-11-06] MEDS: ATORVASTATIN CALCIUM 80 MG TABLET PO SCH (21:04)
[2019-11-07] MEDS: PANTOPRAZOLE SODIUM 40 MG TABLET.DR PO SCH (05:01)
[2019-11-07] MEDS: HEPARIN SOD (PORCINE) 5,000 UNIT/ML 1 ML VIAL SUBCUT SCH ×2 (05:07→14:29)
[2019-11-07 05:25] LABS: HEMATOCRIT 24.5 % (36.0-47.0); HEMOGLOBIN 8.4 g/dL (12.0-15.5); MEAN CORPUSCULAR HEMOGLOBIN 31.3 pg (27.0-33.4); MEAN CORPUSCULAR HGB CONC 34.4 g/dL (32.0-36.0); MEAN CORPUSCULAR VOLUME 91 fl (80-97); PLATELET COUNT 235 10^3/uL (150-450); RED BLOOD COUNT 2.69 10^6/uL (3.72-5.28); RED CELL DISTRIBUTION WIDTH 15.1 % (11.5-14.0); WHITE BLOOD COUNT 6.4 10^3/uL (4.0-10.5)
[2019-11-07] MEDS: ACETAMINOPHEN 325 MG TABLET PO PRN ×2 (05:31→09:07)
[2019-11-07] MEDS: FERROUS SULFATE 325 MG TABLET PO SCH (09:06)
[2019-11-07] MEDS: FUROSEMIDE 20 MG TABLET PO SCH (09:06)
[2019-11-07] MEDS: DOCUSATE SODIUM 100 MG CAPSULE PO SCH (09:06)
[2019-11-07] MEDS: SOTALOL HCL 80 MG TABLET PO SCH (09:07)
[2019-11-07] MEDS ORDERED: CEPHALEXIN 500 MG CAPSULE PO SCH (14:00)
--- NOTE | 2019-11-07 15:40 | EKG REPORT ---
SEVERITY:- ABNORMAL ECG - SINUS RHYTHM ABNORMAL T, CONSIDER ISCHEMIA, ANT-LAT LEADS : Confirmed by: Magdalena Chandler MD 07-Nov-2019 15:39:43
[2019-11-07 15:41] VITALS: BP 120/48
--- NOTE | 2019-11-07 16:18 | PDOC DISCHARGE SUMMARY ---
Impression - Admit/DC Date/PCP Admission Date/Primary Care Provider: 10/31/19 15:16 ZORA SÁNCHEZ PA-C Discharge Date: 11/07/19 - Discharge Diagnosis (1) Acute ischemic stroke Is this a current diagnosis for this admission?: Yes (2) Acute on chronic diastolic (congestive) heart failure Is this a current diagnosis for this admission?: Yes (3) Atrial fibrillation Is this a current diagnosis for this admission?: Yes (4) Acute GI bleeding Is this a current diagnosis for this admission?: Yes (5) Acute systolic heart failure Is this a current diagnosis for this admission?: Yes (6) History of CVA (cerebrovascular accident) Is this a current diagnosis for this admission?: Yes (7) Hyperlipidemia Is this a current diagnosis for this admission?: Yes (8) Elevated troponin I level Is this a current diagnosis for this admission?: Yes (9) HTN (hypertension) Is this a current diagnosis for this admission?: Yes - Additional Information Resuscitation Status: Do Not Resuscitate Discharge Diet: Cardiac Discharge Activity: Activity As Tolerated, Balance Activity w/Rest, Weigh Daily Referrals: ZORA SÁNCHEZ PA-C [Primary Care Provider] - 11/14/19 11:00 am () LEENA MARTE MD [ACTIVE STAFF] - 11/18/19 11:00 am (bring insurance cards all medications in bottles or a detailed list ) Prescriptions: Rosuvastatin Calcium [Crestor] 40 mg PO QHS 30 Days #30 tab Ferrous Sulfate [Feosol 325 mg Tablet] 325 mg PO DAILY 30 Days #30 tablet Furosemide [Lasix 20 mg Tablet] 20 mg PO Q48H 60 Days #30 tablet Sotalol HCl [Sorine] 40 mg PO BID 30 Days #15 tablet Rivaroxaban [Xarelto] 20 mg PO DAILY 30 Days #30 tablet Home Medications: Aspirin [Adult Low Dose Aspirin EC] 81 mg PO QHS 10/31/19 Furosemide [Lasix 20 mg Tablet] 20 mg PO Q48H 60 Days #30 tablet 11/03/19 Ferrous Sulfate [Feosol 325 mg Tablet] 325 mg PO DAILY 30 Days #30 tablet 11/07/19 Rivaroxaban [Xarelto] 20 mg PO DAILY 30 Days #30 tablet 11/07/19 Rosuvastatin Calcium [Crestor] 40 mg PO QHS 30 Days #30 tab 11/07/19 Sotalol HCl [Sorine] 40 mg PO BID 30 Days #15 tablet 11/07/19 History of Present Illiness History of Present Illness: MADIE ROLLINS is a 74 year old female with a past medical history of atrial fibrillation, ocular stroke, hypertension, and obesity who [facility] to the [facility] today with a complaint of generalized weakness and shortness of breath. She was seen at her PCP yesterday with her complaint of shortness of breath; chest x-ray and flu were negative at that time. She cannot she reports that they did not do any blood work at that time. Evaluation in the emergency department revealed hypotension with a blood pressure of 82/52, tachypnea and hypoxia on room air. She was found to have leukocytosis (WBCs 12.7) and hemoglobin of 8.4 (down from 13.4 two weeks ago), Unremarkable chemistry, indeterminate but stable troponin, and proBNP elevated to 1170. Negative urinalysis but positive occult stool. Patient was provided IV fluids and 1 unit PRBC. She is referred to the hospitalist service for admission and management of the above-stated complaints and findings. Hospital Course Hospital Course: (1) Acute ischemic stroke Acute right BALE COVERER nonhemorrhagic stroke. Denied any new focal neurological symptoms except for worsening left temporal hemianopsia which returned back to its baseline. On 11/04/2019 patient was complaining of worsening left temporal hemianopsia. CT head positive for possible right BALE COVERER small stroke. MRI positive for recent infarct in the medial right occipital lobe. Patient had a recent nonhemorrhagic stroke in the same area not sure if this is new or the same stroke. Patient's anticoagulation was held due to GI bleed possibly caused by initiation of Xarelto for newly diagnosed intermittent A. fib. GI initially consulted but they signed off as patient hemoglobin was stable and she was adamantly refusing to undergo upper and lower GI endoscopy stating that her friends had had complications and she would not undergo any upper or lower GI procedures. On 11/21/2019 after extensive discussion patient agreed to undergo upper and lower GI endoscopy and GI was reconsulted. As per GI evaluation, upper and lower GI endoscopy not indicated at this point and recommending outpatient upper and lower GI endoscopy in 4 to 6 weeks (please refer to note). Patient is again adamantly against undergoing any upper or lower GI endoscopy at this time. Patient had another melanotic bowel movement on 11/06/2019 and would like to stop heparin DVT prophylaxis. Continued on telemetry, antiplatelets, high intensity statins, encourage ambulation with assistance. Discharged on high intensity statins, aspirin, Xarelto. (2) Acute on chronic diastolic (congestive) heart failure Resolved. Compensated. SPO2 WNL on RA. Ambulatory. Likely due to history of A. fib RVR. Denies any history of CAD. Was complaining of mild dyspnea on exertion for several months. proBNP 1170 on admission. Review of records obtained from [facility] shows hyperdynamic heart with ejection fraction of 70% and grade 2 diastolic dysfunction. Was a started cautious diuresis guided by volume status volume restriction and beta-blockers. Was discharged on beta-blockers, Lasix 20 mg p.o. every 48 hours. (3) Atrial fibrillation Rate controlled. Repeat EKG sinus rhythm. Was anticoagulated. Xarelto was held due to recent GI bleed. Patient was extensively counseled about risk and benefit of continuing anticoagulation by Dr. Marte and myself. Initially patient did not want to restart her Xarelto but on the last day of hospitalization after talking to her family and much thinking she decided to be restarted on Xarelto. Patient was switched to sotalol by cardiology and monitored for 48 hours. Plan was to follow-up with Dr. Marte as outpatient for possible watchman placement. Patient has an appoint with Dr. Farmer on 11/18/2019. Was discharged on sotalol 40 mg p.o. twice daily, Xarelto 20 mg p.o. daily. (4) Acute GI bleeding Bleeding was most likely due to anticoagulation for history of A. fib RVR. Patient denies any history of GI malignancy. Apparently patient was diagnosed with A. fib in 2018 and last month was restarted on anticoagulation by her molder setter. Xarelto was held and patient was monitored. GI bleed resolved, other than one melanotic bowel movement on 11/06/2019 all bowel movements after that was not melanotic. Hemoglobin remained stable at 8.6-8.9. Received 1 PRBC on admission. Surgery consulted for upper or lower GI endoscopy but was delayed as outpatient, please refer to surgery notes. Recommendation was to do an upper and lower GI endoscopy in 4 to 6 weeks as outpatient but unfortunately patient is adamantly against doing any upper or l ower GI endoscopy either inpatient or outpatient. Initially patient did not want to restart her Xarelto but on the last day of hospitalization after talking to her family and much thinking she decided to be restarted on Xarelto. (5) Acute systolic heart failure As per #2. (6) History of CVA (cerebrovascular accident) History of CVA recurrent right BALE COVERER stroke on 09/2019 and 10/2019. Residual left temporal hemianopsia. Otherwise no focal neurological deficits. Patient was hospitalized here at [facility] CT head was negative and patient was transferred to [facility]. Review of record obtained from [facility] shows nonhemorrhagic infarction in the posterior circulation. Based on lipid panel on 09/23/2018 her ASCVD risk score is only 21.7%. Started on high intensity statins and antiplatelets. Please refer to problem 1. (7) Hyperlipidemia ASCVD risk score of 21.7%. High intensity statins. Follow-up with PCP for LFT monitoring. (8) Elevated troponin I level Likely due to A. fib RVR complicated by underlying acute CHF. Cannot rule out ACS. Patient never had LHC or stress test. Given persistently mild elevation in troponins and high risk for CAD knowledge was consulted. Outpatient follow-up was recommended. Patient has an appoint with Dr. Farmer molder setter on 11/18/2019. (9) HTN (hypertension) Initially started on Lasix and metoprolol Metoprolol was switched to sotalol by cardiology for underlying A. fib RVR. Normotensive and euvolemic at the time of discharge. Physical Exam Vital Signs: Temp Pulse Resp BP Pulse Ox 97.8 F 68 16 120/48 L 100 11/07/19 15:39 11/07/19 15:39 11/07/19 15:39 11/07/19 15:39 11/07/19 15:39 Intake & Output 11/06/19 11/07/19 11/08/19 06:59 06:59 06:59 Intake Total 480 1175 950 Output Total 0 Balance 480 1175 950 Weight 67.8 kg 69 kg 69 kg General appearance: PRESENT: no acute distress, well-developed, well-nourished Head exam: PRESENT: atraumatic, normocephalic Neck exam: ABSENT: carotid bruit, JVD, lymphadenopathy, thyromegaly Respiratory exam: PRESENT: clear to auscultation bianca. ABSENT: rales, rhonchi, wheezes GI/Abdominal exam: PRESENT: normal bowel sounds, soft. ABSENT: distended, guarding, mass, organolmegaly, rebound, tenderness Rectal exam: PRESENT: deferred Neurological exam: PRESENT: alert, awake, oriented to person, oriented to place, oriented to time, oriented to situation, CN II-XII grossly intact - Left temporal hemianopsia.. ABSENT: motor sensory deficit Results Laboratory Results: WBC 6.4 10^3/uL (4.0-10.5) 11/07/19 04:44 RBC 2.69 10^6/uL (3.72-5.28) L 11/07/19 04:44 Hgb 8.4 g/dL (12.0-15.5) L 11/07/19 04:44 Hct 24.5 % (36.0-47.0) L 11/07/19 04:44 MCV 91 fl (80-97) 11/07/19 04:44 MCH 31.3 pg (27.0-33.4) 11/07/19 04:44 MCHC 34.4 g/dL (32.0-36.0) 11/07/19 04:44 RDW 15.1 % (11.5-14.0) H 11/07/19 04:44 Plt Count 235 10^3/uL (150-450) 11/07/19 04:44 Lymph % (Auto) Not Reportable 11/05/19 05:44 [place] % (Auto) Not Reportable 11/05/19 05:44 Eos % (Auto) Not Reportable 11/05/19 05:44 Baso % (Auto) Not Reportable 11/05/19 05:44 Absolute Neuts (auto) Not Reportable 11/05/19 05:44 Absolute Lymphs (auto) Not Reportable 11/05/19 05:44 Absolute Monos (auto) Not Reportable 11/05/19 05:44 Absolute Eos (auto) Not Reportable 11/05/19 05:44 Absolute Basos (auto) Not Reportable 11/05/19 05:44 Total Counted 100 11/05/19 05:44 Seg Neutrophils % Not Reportable 11/05/19 05:44 Seg Neuts % (Manual) 75 % (42-78) 11/05/19 05:44 Lymphocytes % (Manual) 15 % (13-45) 11/05/19 05:44 Monocytes % (Manual) 4 % (3-13) 11/05/19 05:44 Eosinophils % (Manual) 4 % (0-6) 11/05/19 05:44 Basophils % (Manual) 2 % (0-2) 11/05/19 05:44 Abs Neuts (Manual) 5.4 10^3/uL (1.7-8.2) 11/05/19 05:44 Abs Lymphs (Manual) 1.1 10^3/uL (0.5-4.7) 11/05/19 05:44 Abs Monocytes (Manual) 0.3 10^3/uL (0.1-1.4) 11/05/19 05:44 Absolute Eos (Manual) 0.3 10^3/uL (0.0-0.6) 11/05/19 05:44 Abs Basophils (Manual) 0.1 10^3/uL (0.0-0.2) 11/05/19 05:44 Platelet Comment ADEQUATE 11/05/19 05:44 Polychromasia SLIGHT 11/05/19 05:44 Anisocytosis SLIGHT 11/05/19 05:44 Sodium 138.4 mmol/L (137-145) 11/06/19 04:05 Potassium 3.9 mmol/L (3.6-5.0) 11/06/19 04:05 Chloride 102 mmol/L (98-107) 11/06/19 04:05 Carbon Dioxide 31 mmol/L (22-30) H 11/06/19 04:05 Anion Gap 5 (5-19) 11/06/19 04:05 BUN 10 mg/dL (7-20) 11/06/19 04:05 Creatinine 0.61 mg/dL (0.52-1.25) 11/06/19 04:05 Est GFR ( Amer) > 60 (>60) 11/06/19 04:05 Est GFR (MDRD) Non-Af > 60 (>60) 11/06/19 04:05 Glucose 84 mg/dL (75-110) 11/06/19 04:05 Calcium 9.2 mg/dL (8.4-10.2) 11/06/19 04:05 Magnesium 2.1 mg/dL (1.6-2.3) 10/31/19 08:20 Total Bilirubin 0.4 mg/dL (0.2-1.3) 10/31/19 08:20 Direct Bilirubin 0.2 mg/dL (0.0-0.4) 10/31/19 08:20 Neonat Total Bilirubin Not Reportable 10/31/19 08:20 Neonat Direct Bilirubin Not Reportable 10/31/19 08:20 Neonat Indirect Bili Not Reportable 10/31/19 08:20 AST 26 U/L (14-36) 10/31/19 08:20 ALT 32 U/L (<35) 10/31/19 08:20 Alkaline Phosphatase 52 U/L (38-126) 10/31/19 08:20 Creatine Kinase 20 U/L (30-135) L 10/31/19 08:20 CK-MB (CK-2) 0.85 ng/mL (<4.55) 10/31/19 08:20 Troponin I 0.053 ng/mL 11/01/19 12:33 NT-Pro-B Natriuret Pep 1170 pg/mL (<450) H 10/31/19 12:29 Total Protein 5.6 g/dL (6.3-8.2) L 10/31/19 08:20 Albumin 3.2 g/dL (3.5-5.0) L 10/31/19 08:20 Triglycerides 69 mg/dL (<150) 11/05/19 05:44 Cholesterol 145.98 mg/dL (0-200) 11/05/19 05:44 LDL Cholesterol Direct 99 mg/dL (<100) 11/05/19 05:44 VLDL Cholesterol 14.0 mg/dL (10-31) 11/05/19 05:44 HDL Cholesterol 43 mg/dL (>40) 11/05/19 05:44 Urine Color STRAW 11/04/19 15:36 Urine Appearance CLEAR 11/04/19 15:36 Urine pH 7.0 (5.0-9.0) 11/04/19 15:36 Ur Specific [place] 1.003 11/04/19 15:36 Urine Protein NEGATIVE mg/dL (NEGATIVE) 11/04/19 15:36 Urine Glucose (UA) NEGATIVE mg/dL (NEGATIVE) 11/04/19 15:36 Urine Ketones NEGATIVE mg/dL (NEGATIVE) 11/04/19 15:36 Urine Blood NEGATIVE (NEGATIVE) 11/04/19 15:36 Urine Nitrite NEGATIVE (NEGATIVE) 11/04/19 15:36 Urine Bilirubin NEGATIVE (NEGATIVE) 11/04/19 15:36 Urine Urobilinogen NEGATIVE mg/dL (<2.0) 11/04/19 15:36 Ur Leukocyte Esterase MODERATE (NEGATIVE) H 11/04/19 15:36 Urine WBC (Auto) 10 /HPF 11/04/19 15:36 Urine RBC (Auto) 1 /HPF 11/04/19 15:36 U Hyaline Cast (Auto) 4 /LPF 10/31/19 10:25 Urine Bacteria (Auto) TRACE /HPF 10/31/19 10:25 Squamous Epi Cells Auto 2 /HPF 11/04/19 15:36 Urine Mucus (Auto) RARE /LPF 11/04/19 15:36 Urine Ascorbic Acid NEGATIVE (NEGATIVE) 11/04/19 15:36 Blood Type A POSITIVE 10/31/19 11:25 Blood Type Confirm A POSITIVE 10/31/19 11:31 Antibody Screen NEGATIVE 10/31/19 11:25 Crossmatch See Detail 10/31/19 11:25 10/31/19 10/31/19 11/01/19 08:20 12:29 12:33 CK-MB (CK-2) 0.85 Troponin I 0.043 0.045 0.053 NT-Pro-B Natriuret Pep 1170 H Impressions: Brain MRI with MRA 11/04/19 00:00 IMPRESSION: OCCLUSION OF THE RIGHT POSTERIOR CEREBRAL ARTERY. Head CT 11/04/19 00:00 IMPRESSION: SUBTLE DECREASED ATTENUATION IN THE MEDIAL RIGHT OCCIPITAL LOBE SUSPICIOUS FOR ACUTE INFARCT. EVIDENCE OF ACUTE STROKE: YES. RIGHT BALE COVERER. Head MRI 11/04/19 00:00 IMPRESSION: RECENT ACUTE INFARCT IN THE MEDIAL RIGHT OCCIPITAL LOBE. EVIDENCE OF ACUTE STROKE: YES. RIGHT BALE COVERER Stroke Is this a Stroke Patient?: Yes Stroke Pt being discharged on Anti-thrombolytic therapy?: Yes Acute Heart Failure - Is this a Heart Failure Patient?: No
--- NOTE | 2019-11-07 19:17 | Progress Note ---
Provider Note Provider Note: CARDIOLOGY PROGRESS NOTE by Dr. Magdalena Chandler on OBJECTIVE: The patient remains in sinus rhythm. There is no proarrhythmia on sotalol. There is no TIA CVA symptoms. There is no chest pain or discomfort. There is no recurrence of TIA or CVA symptoms. There is no PND orthopnea. There is no ventricular arrhythmia seen on the monitor. There is no further ongoing GI bleed. The patient is anxious to go home. She is now agreeable to be on Xarelto. She is aware of the risks. But the patient is a very high risk for recurrent CVAs. Hence would recommend continuing the patient on Xarelto. Would course cautiously observe the patient. PHYSICAL EXAMINATION: The patient is mildly obese. She is well-groomed in no acute distress. Selected Entries 11/07/19 11/07/19 11:15 15:39 Temperature 97.8 F Pulse Rate 68 Respiratory 16 Rate Blood Pressure 120/48 L [Right Upper Arm] O2 Sat by Pulse 100 Oximetry HEAD: Atraumatic, normocephalic. EYES: Pupils equal round and reactive to light, extraocular movements intact, sclera anicteric, conjunctiva are normal. ENT: TMs normal, nares patent, oropharynx clear without exudates. Moist mucous membranes. NECK: Normal range of motion, supple without lymphadenopathy or JVD. Carotids are equal there is no bruits. There is no thyromegaly. There is no accessory muscles of respiration in use. Trachea central LUNGS: Breath sounds clear to auscultation bilaterally and equal. No wheezes rales or rhonchi. On palpation there is no chest wall tenderness. HEART: S1-S2 is heard. S1 is of normal intensity. There is no S3 gallop. There is no S4 gallop. There is systolic murmur left sternal border and apex without radiation. There is no rub.. ABDOMEN: Soft, nontender, normoactive bowel sounds. There is no hepatosplenic megaly no guarding, no rebound. No masses appreciated. EXTREMITIES: Normal range of motion, no pitting or edema. No clubbing or cyanosis. Femorals are well felt. There is no femoral bruits. Leg pulses are well felt. There is no DVT or cellulitis. There is no calf tenderness NEUROLOGICAL: Cranial nerves II through XII grossly intact. Normal speech, normal gait. The patient is awake alert oriented x3 with no focal deficits. PSYCH: Normal mood, normal affect. The patient judgment and insight are intact SKIN: Warm, Dry, normal turgor, no rashes or lesions noted. There is no petechia or ecchymosis. Labs- All tests 24 hr 11/07/19 04:44 WBC 6.4 RBC 2.69 L Hgb 8.4 L Hct 24.5 L MCV 91 MCH 31.3 MCHC 34.4 RDW 15.1 H Plt Count 235 Brain MRI with MRA 11/04/19 00:00 IMPRESSION: OCCLUSION OF THE RIGHT POSTERIOR CEREBRAL ARTERY. Head CT 11/04/19 00:00 IMPRESSION: SUBTLE DECREASED ATTENUATION IN THE MEDIAL RIGHT OCCIPITAL LOBE SUSPICIOUS FOR ACUTE INFARCT. EVIDENCE OF ACUTE STROKE: YES. RIGHT KENO WRITER. Head MRI 11/04/19 00:00 IMPRESSION: RECENT ACUTE INFARCT IN THE MEDIAL RIGHT OCCIPITAL LOBE. EVIDENCE OF ACUTE STROKE: YES. RIGHT KENO WRITER IMPRESSION/RECOMMENDATION: 1. Paroxysmal atrial fibrillation.: The patient is tolerating sotalol. We will continue sotalol 40 mg p.o. twice daily. She is now agreeable to being on Xarelto she is aware of the risks of recurrent GI bleed. We will watch the patient cautiously. 2. Prior history of ophthalmic CVA. Patient with recurrent CVA. 3. Patient denies any any history of hypertension. 4. Jaw pain intermittent: Patient has multiple CAD risk factors namely age, hyperlipidemia and family history of coronary artery disease. Hence would recommend the patient have IV Lexiscan Cardiolite stress test. This can be done as an outpatient. Patient would like to talk to her primary touch up worker and her primary care provider prior to subjecting to this. There is been no recurrence of jaw pain symptoms. 5. Hyperlipidemia: Patient is very resistant to take statins. 6. Shortness of breath most likely due to combination of anemia, diastolic dysfunction, and atrial fibrillation with rapid rate response. Note that the patient BNP is elevated, but will be cautious and maybe place the patient on Lasix 20 mg on alternate days. 7. GI bleed: Patient was seen by Dr. Lobo. But in view of the fresh CVA GI work-up has been postponed for later. In view of the patient's abnormal EKG later would recommend that the patient have IV Lexiscan Cardiolite stress test. This will be arranged as an outpatient if the patient agrees. Would recommend close follow-up as an outpatient. Patient desires the following up with me. Will get the patient to be seen by Dr. Moore in [place] to see if the patient is a candidate for watchman procedure. Occasions reviewed. Medical regimen and management plan discussed with the patient and with the attending provider. Medical decision making is of high complexity. 40 minutes spent as patient more than 50% of time spent in direct patient care. Will sign off and follow the patient in the office.
== END 2019-11-07 16:27 | disposition home or self-care (01) | DRG 377 ==
LOC: ER 07:49 → EH 13:25 → INTOOBSV 13:25 → OBSVTOIN 15:16 → 4N 20:48 → 3S 11-04 18:34 → 3N 11-05 12:00
PROVIDERS: ADMIT Internal Medicine; ATTEND Internal Medicine
PROC: 30233N1 Transfusion of Nonautologous Red Blood Cells into Peripheral Vein, Percutaneous Approach (ICD-10-PCS; principal; 2019-10-31)
DX: K92.2 Gastrointestinal hemorrhage, unspecified (principal); I63.9 Cerebral infarction, unspecified; I50.43 Acute on chronic combined systolic (congestive) and diastolic (congestive) heart failure; D62 Acute posthemorrhagic anemia; H53.47 Heteronymous bilateral field defects; I11.0 Hypertensive heart disease with heart failure; I95.9 Hypotension, unspecified; E78.5 Hyperlipidemia, unspecified; K92.1 Melena; T45.515A Adverse effect of anticoagulants, initial encounter; R79.89 Other specified abnormal findings of blood chemistry; Z66 Do not resuscitate; E66.9 Obesity, unspecified; R06.82 Tachypnea, not elsewhere classified; R09.02 Hypoxemia; I48.0 Paroxysmal atrial fibrillation; I70.0 Atherosclerosis of aorta; I34.0 Nonrheumatic mitral (valve) insufficiency; G43.B0 Ophthalmoplegic migraine, not intractable; Z79.01 Long term (current) use of anticoagulants; Z87.891 Personal history of nicotine dependence; Z82.49 Family history of ischemic heart disease and other diseases of the circulatory system; Z88.6 Allergy status to analgesic agent; Z79.899 Other long term (current) drug therapy; Z68.34 Body mass index [BMI] 34.0-34.9, adult
CPT/HCPCS: 36415; 36430; 70450; 70544; 70551; 80048; 80053; 80061; 81001; 82550; 82553; 83735; 83880; 84484; 85025; 85027; 86850; 86900; 86901; 86920; 87086; 87088; 93005; 93010; 94640; 99285; C9113; J1644; J1940; J3490; J7030; J7050; J7120; J7614; P9016

== ENCOUNTER → 2019-11-18 | Outpatient (CLI) | payer MEDICARE ==
[2019-11-18 12:56] LABS: ABSOLUTE BASOPHILS # (AUTO) 0.1 10^3/uL (0.0-0.2); ABSOLUTE EOSINOPHILS # (AUTO) 0.1 10^3/uL (0.0-0.6); ABSOLUTE LYMPHOCYTES (AUTO) 1.5 10^3/uL (0.5-4.7); ABSOLUTE MONOCYTES (AUTO) 0.6 10^3/uL (0.1-1.4); ABSOLUTE NEUT (AUTO) 5.9 10^3/uL (1.7-8.2); BASOPHILS % (AUTO) 0.8 % (0-2); EOSINOPHILS % (AUTO) 1.7 % (0-6); HEMATOCRIT 31.1 % (36.0-47.0); HEMOGLOBIN 10.4 g/dL (12.0-15.5); LYMPHOCYTES % (AUTO) 18.6 % (13-45); MEAN CORPUSCULAR HEMOGLOBIN 29.6 pg (27.0-33.4); MEAN CORPUSCULAR HGB CONC 33.3 g/dL (32.0-36.0); MEAN CORPUSCULAR VOLUME 89 fl (80-97); PLATELET COUNT 258 10^3/uL (150-450); RED BLOOD COUNT 3.49 10^6/uL (3.72-5.28); RED CELL DISTRIBUTION WIDTH 14.4 % (11.5-14.0); SEGMENTED NEUTROPHILS % (AUTO) 71.9 % (42-78); TOTAL CELLS COUNTED % (AUTO) 100 %; WHITE BLOOD COUNT 8.3 10^3/uL (4.0-10.5)
== END ==
LOC: OD 12:11
PROVIDERS: ATTEND Specialist
DX: E78.5 Hyperlipidemia, unspecified (principal); Z79.899 Other long term (current) drug therapy
CPT/HCPCS: 36415; 85025